=== PATIENT | female | born 1995 | race Caucasian/White ===

== ENCOUNTER 2022-03-19 13:50 | Outpatient (CLI) | payer OTHER, SELFPAY ==
--- NOTE | 2022-03-19 14:00 | CRLHL7_ITS ---
For Patients: As a result of the Cures Act, medical imaging exams and procedure reports are released immediately into your electronic medical record. You may view this report before your referring provider. If you have questions, please contact your health care provider. INDICATION: Evaluate size and dates TECHNIQUE: Ultrasound OB pelvis transvaginal. Real time amin scale imaging of the pelvis was performed. COMPARISON: None FINDINGS: Sonographic imaging demonstrates a single living intrauterine gestation. The embryo demonstrates a regular cardiac rate measuring 176 beats per minute. The embryo`s crown rump length measurement of 1.9 cm corresponds to a gestational age of 8 weeks 3 days with a sonographic due date of 10/26/2022. There is a normal appearing yolk sac. There are no gross abnormalities noted within the embryo at this early state of development. The placenta has not yet developed. The gestational sac has a normal appearance and there is no evidence of a perigestational hemorrhage. The amount of fluid within the sac appears appropriate for gestational age. The cervix is closed. The myometrium appears normal. The ovaries are of normal size. 0.0 centimeter left ovarian there are no suspicious fluid collections noted in the cul-de-sac. IMPRESSION: Viable intrauterine . Gestational age calculated at 8 weeks 3 days with a sonographic due date of 10/26/22. Measurements consistent with dates. No abnormalities seen. Dictated by Regan Sheffield MD @ 03/20/2022 8:59:52 PM (Electronically Signed)
== END 2022-03-19 13:51 | disposition home or self-care (01) ==
LOC: US 13:53
PROVIDERS: PCP Advanced Practice Midwife; Visit Provider Advanced Practice Midwife
DX: Z34.91 Encounter for supervision of normal pregnancy, unspecified, first trimester (principal); Z3A.08 8 weeks gestation of pregnancy
CPT/HCPCS: 76817

== ENCOUNTER 2022-03-19 15:05 | Outpatient (CLI) | payer OTHER, SELFPAY ==
[2022-03-19 18:06] LABS: Hepatitis B Surface Antigen* Negative (Negative)
[2022-03-19 18:55] LABS: Hepatitis C Virus Antibody* Negative (Negative)
[2022-03-19 19:35] LABS: HIV 1/2/P24 Combo Screen* Negative (Negative)
[2022-03-21 19:41] LABS: Varicella-Zoster Virus Ab, IgG 149.4 IV
[2022-03-22 02:21] LABS: Rapid Plasma Reagin (RPR) Non Reactive (Non Reactive)
== END 2022-03-19 15:06 | disposition home or self-care (01) ==
PROVIDERS: PCP Advanced Practice Midwife; Visit Provider Advanced Practice Midwife
DX: Z34.91 Encounter for supervision of normal pregnancy, unspecified, first trimester (principal); Z3A.08 8 weeks gestation of pregnancy
CPT/HCPCS: 86592; 86703; 86762; 86787; 86803; 86850; 86900; 86901; 87086; 87340

== ENCOUNTER 2022-06-06 13:52 | Outpatient (CLI) | payer OTHER, SELFPAY ==
--- NOTE | 2022-06-06 14:00 | CRLHL7_ITS ---
For Patients: As a result of the Century Cures Act, medical imaging exams and procedure reports are released immediately into your electronic medical record. You may view this report before your referring provider. If you have questions, please contact your health care provider. INDICATION: Evaluate anatomy. COMPARISON: 03/19/2022 TECHNIQUE: Real time amin scale imaging of the fetus was performed as well as color Doppler analysis of the umbilical vessels. FINDINGS: Sonographic imaging demonstrates a single living intrauterine gestation. Fetus demonstrates a regular cardiac rate of 137 beats per minute. Fetus has a breech position. The placenta lies posteriorly without evidence of placenta previa. The edge of the placenta is located 3.9 cm from the internal cervical os. Amniotic fluid volume appears normal. Single deepest vertical pocket: 3.4 cm. The cervix is closed and measures 4.4 cm in length. The composite ultrasound gestational age is calculated at 20 weeks 0 days with an estimated sonographic due date of 10/24/2022. The estimated weight is 325 grams which lies at the 44th %. The following biometric measurements were obtained: Biparietal diameter: 4.7 cm/20 weeks 1 day 55th% Head circumference: 17.2 cm/19 weeks 5 days 31st% Abdominal circumference: 15.2 cm/20 weeks 3 days 58th% Femur length: 3.1 cm/19 weeks 4 days 26th% The HC/AC ratio measures: 1.13 range (1.08-1.25) On anatomic survey, there is a normal appearance of the cerebral ventricles, cavum septi pellucidi, cisterna magna and cerebellum. The nose, lips, and facial profile appear normal. The cervical, thoracic and lumbar spine are well visualized and appear normal. Incomplete visualization of the four-chamber heart and outflow tracts. The diaphragm and stomach appear normal. The kidneys and bladder also appear normal. There is a normal three-vessel cord and cord insertion site. The four extremities appear normal. IMPRESSION: Concordance of clinical and sonographic dating. Incomplete visualization of the cardiac views. Remainder of the anatomic survey is normal. Short-term follow-up in 1-2 weeks suggested. Dictated by Regan Medrano MD @ 06/07/2022 10:07:02 AM (Electronically Signed)
== END 2022-06-06 13:53 | disposition home or self-care (01) ==
PROVIDERS: Visit Provider Advanced Practice Midwife
DX: Z34.92 Encounter for supervision of normal pregnancy, unspecified, second trimester (principal)
CPT/HCPCS: 76805

== ENCOUNTER 2022-06-11 15:59 | Outpatient (CLI) | payer OTHER, SELFPAY ==
--- NOTE | 2022-06-11 16:00 | CRLHL7_ITS ---
For Patients: As a result of the Century Cures Act, medical imaging exams and procedure reports are released immediately into your electronic medical record. You may view this report before your referring provider. If you have questions, please contact your health care provider. INDICATION: incomplete views of heart COMPARISON: 06/06/2022 TECHNIQUE: Real time amin scale imaging of the fetus was performed. FINDINGS: Sonographic imaging demonstrates a single living intrauterine gestation. Fetus demonstrates a regular cardiac rate of 159 beats per minute. Fetus has a vertex position. The placenta lies posteriorly. Amniotic fluid volume appears normal. Single deepest vertical pocket: 4.3 cm. There is a normal four-chamber heart view and the left and right ventricular outflow tracts appear normal. IMPRESSION: Normal heart views. Dictated by Regan Medrano MD @ 06/12/2022 9:30:49 AM (Electronically Signed)
== END 2022-06-11 16:00 | disposition home or self-care (01) ==
LOC: US 16:00
PROVIDERS: Visit Provider Advanced Practice Midwife
DX: O36.8320 Maternal care for abnormalities of the fetal heart rate or rhythm, second trimester, not applicable or unspecified (principal); Z3A.00 Weeks of gestation of pregnancy not specified
CPT/HCPCS: 76816

== ENCOUNTER 2022-09-14 15:36 | Outpatient (CLI) | payer OTHER, SELFPAY ==
[2022-09-14] VITALS (20 sets, daily range): BP systolic 112–135; BP diastolic 63–85; PULSE 78–99; RESP 18; TEMP 36.8; O2SAT 98–99
[2022-09-14 17:03] LABS: Hematocrit 40.4 % (33.0-51.0); Hemoglobin* 13.6 gm/dL (12.0-16.0); Mean Corpuscular HGB Conc 34 gm/dL (32-36); Mean Corpuscular Hemoglobin 30 pg (26-34); Mean Corpuscular Volume 90 fL (80-100); Platelet Count* 315 K/uL (140-440); Red Blood Count 4.49 m/uL (4.00-5.20); White Blood Count* 11.88 K/uL (4.50-11.00)
[2022-09-14 17:07] LABS: Slide Review Reflex No
[2022-09-14 17:21] LABS: Alanine Aminotransferase* 22 U/L (4-35); Aspartate Amino Transferase* 24 U/L (12-35); Blood Urea Nitrogen* 9 mg/dL (5-24); Creatinine* 0.6 mg/dL (0.5-1.5); Estimated Glomerular Filt Rate 125 ml/min
[2022-09-14 17:22] LABS: Total Protein Urine 15 mg/dL
[2022-09-14 17:23] LABS: Creatinine Urine 152.4 mg/dL
--- NOTE | 2022-09-14 20:01 | PC.OBNST ---
NST Note NST Note Start: 09/14/22 16:52 Freq: ONCE Status: Active Protocol: Document 09/14/22 19:59 MMB (Rec: 09/14/22 20:00 MMB [id number]) NST Note 1 Para (# of births) 0 EDC 10/24/22 Gestational Age In Weeks & Days 34 Weeks & 2 Days Patient Presented with Complaint(s) of Other Other Complaints Elevated BP in clinic, continued observation. Reactive Yes Appropriate for Gestational Age Yes RN Ginger Ku RN Date 09/14/22 Reactive Yes Appropriate for Gestational Age Yes PAMELA Yeh RN Date 09/14/22 OB NST charge Yes Complete NST Note via Write Note Yes The provider's electronic signature indicates the NST is reactive/appropriate for gestational age. *Note to provider: If an addendum is required, open the patient's chart and click on the note under the Nurse/Allied Health tab.
== END 2022-09-14 19:26 | disposition home or self-care (01) ==
LOC: OB OUT 15:36 → OB 15:37
PROVIDERS: Visit Provider Advanced Practice Midwife
DX: O16.3 Unspecified maternal hypertension, third trimester (principal); Z3A.34 34 weeks gestation of pregnancy
CPT/HCPCS: 36415; 59025; 82565; 82570; 84156; 84450; 84460; 84520; 85027; 99213

== ENCOUNTER 2022-09-28 15:22 | Outpatient (CLI) | payer OTHER, SELFPAY ==
[2022-09-29 17:47] LABS: Strep B DNA Probe POSITIVE (Negative); Strep B Pen/Amox Allergy No
== END 2022-09-28 15:23 | disposition home or self-care (01) ==
LOC: NFLDREF 15:22
PROVIDERS: Visit Provider Advanced Practice Midwife
DX: Z34.93 Encounter for supervision of normal pregnancy, unspecified, third trimester (principal)
CPT/HCPCS: 87081; 87653

== ENCOUNTER 2022-10-30 07:12 | Outpatient (CLI) | payer OTHER, SELFPAY ==
--- NOTE | 2022-10-30 07:15 | CRLHL7_ITS ---
For Patients: As a result of the Century Cures Act, medical imaging exams and procedure reports are released immediately into your electronic medical record. You may view this report before your referring provider. If you have questions, please contact your health care provider. INDICATION: Post-dates COMPARISON: 06/11/2022 TECHNIQUE: Real time amin scale imaging of the fetus was performed. Without non-stress testing. FINDINGS: Sonographic imaging demonstrates a single living intrauterine gestation. Fetus demonstrates a regular cardiac rate of 149 beats per minute. Fetus has a vertex position. The amniotic fluid volume appears lower limits of normal and there is a single deepest pocket measurement of 3.0 cm. TOD 10.4 cm. The fetus was active and demonstrated normal breathing movements. There was normal flexion and extension of the trunk and extremities. IMPRESSION: Normal biophysical profile score of 8 out of 8. Dictated by Regan Medrano MD @ 10/30/2022 8:40:43 AM (Electronically Signed)
== END 2022-10-30 07:13 | disposition home or self-care (01) ==
LOC: US 07:13
PROVIDERS: Visit Provider Advanced Practice Midwife
DX: O48.0 Post-term pregnancy (principal); Z3A.40 40 weeks gestation of pregnancy
CPT/HCPCS: 76819

== ENCOUNTER 2022-11-02 17:41 | Inpatient (IN) | payer OTHER, SELFPAY ==
[2022-11-02] VITALS (20 sets, daily range): BP systolic 125–156; BP diastolic 63–85; PULSE 74–110; RESP 16; TEMP 36.8–37.1; O2SAT 96–98; BMI 41.1
[2022-11-02 14:52] LABS: Creatinine Urine 17.6 mg/dL; Total Protein Urine 13 mg/dL
[2022-11-02 16:16] LABS: Hematocrit 42.9 % (33.0-51.0); Hemoglobin* 14.5 gm/dL (12.0-16.0); Mean Corpuscular HGB Conc 34 gm/dL (32-36); Mean Corpuscular Hemoglobin 30 pg (26-34); Mean Corpuscular Volume 89 fL (80-100); Platelet Count* 367 K/uL (140-440); Red Blood Count 4.85 m/uL (4.00-5.20); White Blood Count* 12.14 K/uL (4.50-11.00)
[2022-11-02 16:18] LABS: Slide Review Reflex No
[2022-11-02 16:34] LABS: Alanine Aminotransferase* 24 U/L (4-35); Aspartate Amino Transferase* 29 U/L (12-35); Blood Urea Nitrogen* 12 mg/dL (5-24); Creatinine* 0.7 mg/dL (0.5-1.5); Estimated Glomerular Filt Rate 120 ml/min
--- NOTE | 2022-11-02 17:30 | W.PM.LDBA ---
Subjective History of Present Illness Time Seen by Provider: 17:31 Date Seen: 11/02/22 Specific Issues/Plans H&P by BERTHA Scott on 10/05/2022 1. Prepregnancy BMI 38.78 2. 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 Taking Hypnobirthing classes. 3. PTSD/Anxiety Brother by homicide Was on medication in past, not since 2018; currently in therapy 4. Varicella non-immune Recommend vaccine pp 5. Elevated BP without diagnosis of HTN 09/14 144/80 Labs WNL, p/c ratio 0.00. BP normotensive in triage Follow-up BP check in 1 week 6. GBS positive, Recommend antibiotics in labor. Planning to decline, will consider based on risk Declination form signed COVID: declines FLU: declines TDAP: declines Comments: Lilli is being admitted to Labor and Delivery for an IOL for preeclampsia. She is a 27 year old G 1 P 0 at?41.2 weeks gestation. She was seen in the clinic this morning for an NST for post dates. At that time she was noted to have an elevated BP. IOL recommended at that time r/t previous elevated blood pressure and being 41+ weeks. She was hesitant at that time and preferred to start w/ further monitoring. She also wanted to do a hypnobabies track prior to having her labs drawn, as she has a fear of needles. Her BPs during this extended monitoring ranged from 120s/60s - 140s/80s. She did have 2 BPs that were 150s/80s. Liver enzymes WNL, PC ratio elevated at 0.7. She denies any headache, vision changes or epigastric pain at this time. Reviewed diagnoses of preeclampsia. She agrees to an IOL at this time. Her full history and physical was dictated by Josh Arce on 10/05/22. Please see this for details. ? Her partner is with her for support. She is planning an unmedicated waterbirth. OB - Problem Based A/P Additional Plan (1) Preeclampsia: Status: Acute (2) Group B Streptococcus carrier state affecting : Status: Acute (3) Anxiety: Status: Acute (4) PTSD (post-traumatic stress disorder): Status: Acute Plan at 41.2 weeks GBS positive IOL for preeclampsia w/o severe features. Severe needle phobia Varicella non immune -Needs vaccine PP 1. Admit to L & D for IOL. 2. IV access r/t preeclampsia 3. Continuous monitoring r/t preeclampsia 4. Reviewed options for IOL, including risks and benefits. She would prefer cervidil to allow for more sleep tonight. May also have vistaril if desired for sleep. 5. She declines GBS antibiotic prophylaxis at this time. This has been reviewed in the clinic and she has signed the declination form. She is open to reconsidering depending on the circumstances of her labor. 6. Candidate for analgesia of choice. Planning unmedicated 7. Desires waterbirth. Consent signed and Hep C neg. Remains a candidate if BPs do not become severe 8. Anticipate progress to NVD. Delivery/Labor/Induction Plan Plan: induction Induction method: Cervidil OB Exam Physical Exam Vital signs: Temp Pulse Resp BP Pulse Ox 98.8 F 91 16 139/71 98 11/02/22 14:30 11/02/22 16:58 11/02/22 14:30 11/02/22 16:58 11/02/22 14:30 Narrative: VSS, afebrile? General Appearance:? Calm, cooperative.? No acute distress.? Normal affect.? Psychiatric Exam: Alert and oriented, appropriate affect? HEENT: normocephalic, neck supple, full ROM? Respiratory:? Symmetrical chest wall movement.? Normal respiratory effort.? Clear to auscultation? Cardiac:? regular rate and rhythm? Abdomen: Gravid, non tender? Extremities:? normal and trace edema? Skin: warm, dry.??? Ctx:? rare mild terrence ruben ctx FHTs:? Baseline: 135.? Variability: moderate.?? Accels: present.??? Decels:? none.? SVE: 50/-2? Membranes: intact?
[2022-11-02] MEDS: DINOPROSTONE 10 MG VAGINAL INSERT VAGINAL (18:01)
[2022-11-02] MEDS: hydrOXYzine pamoate 25 MG CAPSULE 100 MG PO (22:04)
[2022-11-03] VITALS (17 sets, daily range): BP systolic 105–136; BP diastolic 56–82; PULSE 78–127; RESP 15–20; TEMP 36.4–37.1; O2SAT 97–98
--- NOTE | 2022-11-03 07:02 | PM.OBPNL ---
Subjective Time Seen by Provider: 07:02 Date Seen: 11/03/22 Narrative: Lilli had the cervidil placed around 1800. She started to have intense cramping, which progressed to not feeling like she was getting any break. SVE by RN was 3-4 cm. Decision made to pull cervidil at that time (2311) and continue to see how she labored on her own. 0017 SROM occurred, clear fluid. She continued to labor, and was noted to be a rim at 0406. At 0430, noted to be somewhat involuntary pushing, primarily trying to breathe baby down. She pushed mostly on hands and knees/kneeling in the tub. Around 0515, SVE done to see how pushing was progressing, as she was still trying to breathe baby down. Baby noted to be +3 station, not , and little movement noted with push. She tried various positions for pushing and increased coaching, but still was unable to actively push and move baby down. Recommendation made to exit the tub so she wasn't trying to support herself in the tub and push. She was agreeable to this. Assisted from the tub and into bed into a semifowlers position. She was coached on pushing, and descent noted in this position. She pushed to a position, at which time Josh Arce assumed care. BPs stable in labor and pushing. Objective Exam: VSS, afebrile General Appearance:? Calm, cooperative. No acute distress. ? Psychiatric Exam: Alert and oriented, appropriate affect Abdomen: Gravid Ctx: ?Q [] min apart. ?[Mild] [Moderate] [Strong] FHTs: Baseline: []. Variability: []. Accels: []. Decels: []. SVE: [] Membranes: [Intact] [SROM AROM X [] hours] ? Vital Signs: Last Vital Signs Temp 98.3 F 11/03/22 05:55 Pulse 116 H 11/03/22 05:55 Resp 20 11/03/22 05:55 BP 128/72 11/03/22 05:55 Pulse Ox 96 11/02/22 22:01 Plan Plan: Assessment:?? at 40.3 weeks gestation?? GBS positive, declining treatment IOL for preeclampsia w/o severe features ? Plan:?? NVD anticipated soon.
[2022-11-03] MEDS: OXYTOCIN 30 unit/500 ML in NS 30 UNIT/500 ML BAG 350 UNIT IVPB (07:37)
[2022-11-03] MEDS: LACTATED RINGERS 1000 ML 1,000 ML 75 ML IV (07:38)
--- NOTE | 2022-11-03 07:55 | W.PM.VAGDE_ITS ---
OB Procedure Vag Delivery Mother Details Mother Details: The patient is a 27 year-old, 1, Para 1, admitted on 11/02/22 at 41.3 Days gestation. : 1 Para: 1 Weeks Gestation: 41.3 Admission Date: 11/02/22 Additional Details Amniotic Membrane Status: SROM Amniotic Membrane Rupture Date: 11/03/22 Amniotic Membrane Rupture Time: 00:17 Amniotic Membrane Fluid Description: Clear Analgesia/Anesthesia Type: None Waterbirth: No Pitcoin: Yes ([facility] only) Intrapartal Events: Labor Induction Induction Method: Cervidil Labor Onset: 03:00 Complete: 04:40 Pushin:40 Heart: heart tones during second stage were intermittently monitored until the last hour. Reassuring throughout. Good return to baseline between contractions for the last hour with EFM, intermittent due to pushing. Delivery Details Delivery Date: 11/03/22 Delivery Time: 07:04 Route of delivery: Gender: Female Viability: Alive; Heart Rate Present Position at Delivery: OA Delivery Details: Patient was admitted for induction of labor for new diagnosis of pre-eclampsia. Her induction was started with Cervidil with the plan to sleep overnight. Just a few hours after, she began to become uncomfortable and Cervidil was removed. She then progressed normally. SROM occurred at 0017 with clear fluid. Patient was complete at 0440 and pushing at 0440 but only with urge at peak of contractions while in the tub. She started to push more effectively about 615 when she transitioned to the bed. of a viable female at 0704 in position on the bed. Vertex delivered OA. No nuchal cord or shoulder. Body delivered easily and w ithout incident. Terminal meconium noted. Infant passed to mothers lower abdomen due to short cord. Stimulated for a weak cry initially but perked up with additional stim and bulb suctioning of the mouth. Cord was clamped and cut at > 5 minutes. APGARS were 6 at one minute and 8 at five minutes respectively.Intact placenta with a 3 vessel cord delivered spontaneously at 0716. Fundus was initially boggy but was firm with fundal massage. She continued to trickle but was declining Pitocin unless necessary. Rectal Cytotec administered and her bladder was emptied. Her fundus was again boggy but massaged to firm with additional gushes of blood, QBL at this time was >500. Recommended Pitocin, she was agreeable to using her IV access for this. Bleeding started to slow by the time Pitocin was started, fundus firm; total QBL of 800. 1st degree identified and not repaired. Mother and baby stable; mother plans to breastfeed. Infant weight pending. GBS not treated, declination form in chart. 1 Minute Interval Total Score: 6 5 Minute Interval Total Score: 8 Additional Details Shoulder Dystocia: No Placenta Delivery Time: 07:04 Placental Delivery Description: Spontaneous Procedure Done: Global Blood Loss: 800 Laceration: Perineal - 1st Degree Blood Loss Measurement Type: QBL Bakri Used: No Sponge/Need Count Correct: Yes Cord Vessel Description: 3 Vessels Indication for instrumentation: nonreassuring FHR tracing Event Summary Status: Mother and infant were stable after delivery. Disposition: floor Assessment and Plan (1) Normal spontaneous vaginal delivery: Status: Acute (2) First-degree perineal laceration, delivered: Status: Acute (3) Preeclampsia: Status: Acute (4) Group B Streptococcus carrier state affecting : Status: Acute (5) Anxiety: Status: Acute (6) PTSD (post-traumatic stress disorder): Status: Acute
[2022-11-03] MEDS: miSOPROStoL 800 MCG/4 TABLET VAGINAL (13:25)
[2022-11-04 03:09] VITALS: BP 118/81; PULSE 74; RESP 16; TEMP 36.3; O2SAT 99
--- NOTE | 2022-11-04 09:24 | PM.OBPNVD1 ---
OB - PN:Subj Subjective Date Seen: 11/04/22 Patient comments OB post-: no complaints, pain well controlled, perineal pain, tolerating diet and flatus present [place] infant status: and doing well Narrative: Lilli is a 27 y.o. who was admitted to L & D for induction of labor for pre-eclampsia without severe features. ?She had an uncomplicated NVD.?The patient feels well. ?The pain is well controlled with current medications. ?She has no new complaints. ?She is breast feeding and reports things are going ok, using a nipple sheild and working on latching.? the patient has done well.? Vitals have been stable.? She has remained afebrile.? Has a good appetite, is tolerating a general diet. ?She is voiding without difficulty.? She is passing gas and has had a small bowel movement.? She is ambulating and denies any dizziness.? Has Small amount of rubra lochia. OB - PN: Obj Exam Physical Exam: Vital signs: Temp Pulse Resp BP Pulse Ox O2 Del Method 97.4 F L 74 16 118/81 99 Room Air 11/04/22 03:09 11/04/22 03:09 11/04/22 03:09 11/04/22 03:09 11/04/22 03:09 11/04/22 03:09 Narrative: GENERAL APPEARANCE:? normal affect, alert, no distress MOOD:? appropriate CHEST:? clear to auscultation HEART:? regular rate and rhythm ABDOMEN:? soft, non-tender the uterine fundus is at Umbilicus, Midline and is appropriate for the stage of recovery. PERINEUM:? mild edema of the perineum, there is a Perineal Laceration,?1st degree, that is healing well. EXTREMITIES:? normal and no edema OB - PN: A/P Delivery Assessment and Plan (1) care and examination immediately after delivery: Status: Acute (2) Preeclampsia: Status: Acute (3) Lactating mother: Status: Acute (4) Anxiety: Status: Acute (5) PTSD (post-traumatic stress disorder): Status: Acute Plan day: 1 Plan: routine care Comments: Lactating mother. Continue to work on with nursing staff. May see if desired. Pre-eclampsia w/out SF. Continue to monitor BP. Anticipate discharge tomorrow.
[2022-11-04 13:00] VITALS: BP 121/80; PULSE 68; RESP 16; TEMP 36.6; O2SAT 98
[2022-11-04 20:08] VITALS: BP 127/83; PULSE 80; RESP 16; TEMP 36.4; O2SAT 99
[2022-11-05 01:58] VITALS: BP 127/72; PULSE 84; RESP 16; TEMP 36.4; O2SAT 98
--- NOTE | 2022-11-05 08:29 | PM.OBDSVD1 ---
DS: Providers Provider Date Seen: 11/05/22 Date of admission: 11/02/22 17:41 Primary care physician: Not a Local Provider Admitting Clinician: Candace Pagan CNM Attending Physician on discharge: Yanni Arce CNM Date of Discharge: 11/05/22 DS: Diagnosis Discharge Diagnosis (1) care and examination immediately after delivery: Status: Acute (2) Lactating mother: Status: Acute (3) Preeclampsia: Status: Acute Exam Narrative: Exam Narrative: GENERAL APPEARANCE:? normal affect, alert, no distress MOOD:? appropriate CHEST:? clear to auscultation HEART:? regular rate and rhythm ABDOMEN:? soft, non-tender the uterine fundus is at Umbilicus, Midline and is appropriate for the stage of recovery. PERINEUM:? mild edema of the perineum, there is a Perineal Laceration,? 1st degree, that is healing well. EXTREMITIES:? normal and no edema Const: Vital Signs, click to edit/add: Vital Signs - 24 hr 11/04/22 13:00 11/04/22 20:08 11/05/22 01:58 Temperature 97.9 F 97.6 F 97.6 F Pulse Rate [Pulse Oximeter] 68 80 84 Respiratory Rate 16 16 16 Blood Pressure [Ri ght Arm] 121/80 127/83 127/72 Pulse Oximetry 98 99 98 Oxygen Delivery Me thod Room Air Room Air Room Air OB - DS: Summary Hospital Course Hospital Course: Lilli is a 27 year old G 1 P 1 at 41 3/7 weeks gestation that was admitted to the Center on 11/02/22 for induction of labor for newly diagnosed Pre-e without severe features. She had an uncomplicated vaginal delivery. She delivered a viable female infant. The patient feels well. ?The pain is well controlled with current medications. ?She has no new complaints. ?She is breast feeding and reports things are going well today, she has been a little sleepy but feeding now without a nipple shield most of the time. the patient has done well.? Vitals have been stable.? She has remained afebrile.? Has a good appetite, is tolerating a general diet. ?She is voiding without difficulty.? She is passing gas and has not had a bowel movement.? She is ambulating and denies any dizziness.? Has small amount of rubra lochia. She is planning NFP/condoms for prevention. Problems: None plan: Discharge home with baby. Follow up in 2 weeks and 6 weeks. , may see if needed Pre-eclampsia without SF, normotensive BP since delivery -Follow up in 3-5 days -Call for signs/symptoms of preeclampsia Peripartum Data delivery method: Vaginal Laceration description: Perineal - 1st Degree complications: none Infant Gender: Female Infant Discharge Plan: Home Status at Discharge Functional status at discharge: independent ambulation Overall status at discharge: patient is progressing back to baseline Time Spent with Patient Time attestation: Total time spent providing and/or coordinating discharge services: Discharge Plan Discharge Disposition: Home, Self-Care Date of Admission: 11/02/22 17:41 Primary Care Provider: Provider,Not a Local Condition: Stable Anticipated Discharge Date/Time: 11/05/22 12:00 Discharge Medications: New docusate sodium 100 mg Capsule 100 mg PO DAILY Qty: 90 0RF ibuprofen 600 mg Tablet 600 mg PO Q6H PRNQty: 60 0RF acetaminophen 500 mg Tablet 1,000 mg PO Q6H PRNQty: 0 0RF Continued prenat.vits,gurpreet,[id number]-[id number] Tablet 1 tab PO QDAY aspirin [Adult Low Dose Aspirin] 81 mg tablet,delayed release (DR/EC) 81 mg PO QDAY Discharge Orders: Discharge Order (Routine); Ordered 11/05/22 Ordered By: Yanni Arce Patient Education: OB Over the Counter Medication Information, OB Vaginal/Breast Feeding Additional Instructions: Discharge instructions were reviewed with the patient including signs and symptoms of infection and home going medications Nothing vaginally for 6 weeks: no tampons or intercourse Off Work or School for 6 weeks [facility] for a BP check?11/07/2022 Call with BP greater than or equal to 160/110 2-week visit: discuss feeding concerns, review control options and screen for anxiety/depression. 6-week visit for an annual exam. consultation services are available to all mothers and babies for the first year after delivery.? To make an appointment, please call [phone]. Activity Level: Activity as Tolerated Discharge Diet: Regular Follow Up Appointments: [facility] [Provider Group] Forms: [employer] Info Instructions
[2022-11-05 09:26] VITALS: BP 117/78; PULSE 67; RESP 16; O2SAT 98
== END 2022-11-05 11:06 | disposition home or self-care (01) | DRG 807 ==
LOC: OB OUT 11-06 11:47
PROVIDERS: Admitting Provider Advanced Practice Midwife; Visit Provider Advanced Practice Midwife
DX: O14.04 Mild to moderate pre-eclampsia, complicating childbirth (principal); Z37.0 Single live birth; O14.93 Unspecified pre-eclampsia, third trimester; Z3A.41 41 weeks gestation of pregnancy; O99.820 Streptococcus B carrier state complicating pregnancy; O70.0 First degree perineal laceration during delivery; O48.0 Post-term pregnancy; F43.10 Post-traumatic stress disorder, unspecified
CPT/HCPCS: 36415; 59200; 82565; 82570; 84156; 84450; 84460; 84520; 85027; 99213; A9270; J7120

== ENCOUNTER 2022-11-06 08:58 | Outpatient (CLI) | payer OTHER, SELFPAY | END 2022-11-06 08:59 | disposition home or self-care (01) | PROVIDERS: Visit Provider Advanced Practice Midwife | DX: O14.10 Severe pre-eclampsia, unspecified trimester (principal) | CPT/HCPCS: 82565; 84450; 84460; 84520; 84550 ==

== ENCOUNTER 2022-11-06 14:09 | Inpatient (IN) | payer OTHER, SELFPAY ==
[2022-11-06 14:38] VITALS: BP 137/92; PULSE 98; RESP 18; TEMP 37.1; O2SAT 98
[2022-11-06 14:55] VITALS: BP 135/79
[2022-11-06] MEDS: MAGNESIUM IV 4 GM/100 ML PIGGYBACK IVPB (15:11)
[2022-11-06 15:30] LABS: Chloride* 108 mmol/L (96-114); Potassium* 3.8 mmol/L (3.6-5.1); Sodium* 140 mmol/L (135-149)
[2022-11-06 15:33] LABS: Anion Gap 9 mEq/L (7-15); Carbon Dioxide* 23 mmol/L (20-32); Creatinine* 0.6 mg/dL (0.5-1.5); Estimated Glomerular Filt Rate 125 ml/min
[2022-11-06 15:34] LABS: Blood Urea Nitrogen* 13 mg/dL (5-24); Glucose* 86 mg/dL (60-115)
[2022-11-06] MEDS: LACTATED RINGERS 1000 ML 1,000 ML 75 ML IV (15:45)
[2022-11-06 15:46] VITALS: BMI 38.7
--- NOTE | 2022-11-06 16:00 | CRLHL7_ITS ---
For Patients: As a result of the Century Cures Act, medical imaging exams and procedure reports are released immediately into your electronic medical record. You may view this report before your referring provider. If you have questions, please contact your health care provider. INDICATION: Leg pain and swelling. TECHNIQUE: Ultrasound venous duplex lower left extremity. Compression venous exam was performed using amin-scale, color Doppler, and spectral Doppler analysis. COMPARISON: None. FINDINGS: Deep veins: Sonographic imaging demonstrates the left common femoral, deep femoral, superficial femoral, popliteal, posterior tibial, peroneal and the contralateral right common femoral veins to be fully compressible with normal color Doppler blood flow. Superficial veins: Greater saphenous vein is fully compressible. No popliteal cyst. IMPRESSION: Normal left lower extremity venous ultrasound, no sign of deep venous thrombosis. Dictated by Rory Dukes MD @ 11/06/2022 5:14:00 PM (Electronically Signed)
[2022-11-06 17:50] VITALS: BP 112/69; PULSE 88; RESP 18; TEMP 36.7; O2SAT 98
[2022-11-06] MEDS: ACETAMINOPHEN 500 MG TABLET 1000 MG PO (18:24)
[2022-11-06 20:00] VITALS: BP 125/77; PULSE 92; RESP 18; TEMP 36.7; O2SAT 97
[2022-11-06] MEDS: LABETALOL HCL 100 MG TABLET 200 MG PO (20:59)
[2022-11-06 21:00] VITALS: BP 115/74
--- NOTE | 2022-11-06 21:19 | W.PM.LDBA ---
Subjective History of Present Illness Time Seen by Provider: 21:19 Date Seen: 11/06/22 Narrative: Patient is being admitted to Labor and Delivery for magnesium sulfate for severe preeclampsia. She is a 27 year old s/p on 11/03/2022. Her full history and physical was dictated by Anni Pagan CNM who she saw today in clinic. I was asked to consult on her. She was dx with preeclampsia on 11/02/2022. She was admitted for induction and had an uncomplicated delivery. Her blood pressure prior to discharge was 100-120s/60-80s. Her BP at home is recorded as 140-150s/90s. No severe ranging BP. She was seen for short followup by BERTHA today. I recommended PreE labs and starting her on labetalol 200 mg BID. PreE labs was significant for AST/ALT: 80/55 ( on Nov 02). She meet criteria for preeclampsia with severe features. Recommend inpatient admission for IV magnesium sulfate. Specific Issues/Plans H&P by BERTHA Scott on 10/05/2022 1. Prepregnancy BMI 38.78 2. 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 Taking Hypnobirthing classes. 3. PTSD/Anxiety Brother by homicide Was on medication in past, not since 2018; currently in therapy 4. Varicella non-immune Recommend vaccine pp 5. Elevated BP without diagnosis of HTN 09/14 144/80 Labs WNL, p/c ratio 0.00. BP normotensive in triage Follow-up BP check in 1 week 6. GBS positive, Recommend antibiotics in labor. Planning to decline, will consider based on risk Declination form signed COVID: declines FLU: declines TDAP: declines OB - Problem Based A/P Additional Plan (1) Severe preeclampsia: Status: Acute Plan Pre-Eclampsia with severe features ? Based on AST twice upper limit of normal ? BPs 142/80 ? Symptoms: 1/10 headache, no visual change. Resolve with tylenol. ? Magnesium: Magnesium for seizure ppx. Continue for 24 hours with BP monitoring ? IV antihypertensives: Labetalol 200 mg BID ? Pre-eclampsia labs on 11/06/2022: Hgb 10.9 Plt 355 Cr 0.6 ALT 55 AST 80 ? UOP: 0.81 cc/kg/hr. Adequate OB Exam Physical Exam Vital signs: Temp Pulse Resp BP Pulse Ox O2 Del Method 98.0 F 92 18 115/74 97 Room Air 11/06/22 20:00 11/06/22 20:00 11/06/22 20:00 11/06/22 21:00 11/06/22 20:00 11/06/22 20:00
[2022-11-06 23:58] VITALS: BP 99/61; PULSE 75; RESP 16; TEMP 36.7; O2SAT 97
[2022-11-07] MEDS: ACETAMINOPHEN 500 MG TABLET 1000 MG PO ×3 (02:56→14:50)
[2022-11-07 03:02] VITALS: BP 119/74; PULSE 97; RESP 16; TEMP 36.6; O2SAT 97
[2022-11-07] MEDS: LACTATED RINGERS 1000 ML 1,000 ML 75 ML IV (05:11)
[2022-11-07 06:12] LABS: Hematocrit 31.2 % (33.0-51.0); Hemoglobin* 10.1 gm/dL (12.0-16.0); Mean Corpuscular HGB Conc 32 gm/dL (32-36); Mean Corpuscular Hemoglobin 30 pg (26-34); Mean Corpuscular Volume 92 fL (80-100); Platelet Count* 349 K/uL (140-440); Red Blood Count 3.38 m/uL (4.00-5.20); White Blood Count* 10.35 K/uL (4.50-11.00)
[2022-11-07 06:16] LABS: Slide Review Reflex No
[2022-11-07 06:27] LABS: Alanine Aminotransferase* 63 U/L (4-35); Aspartate Amino Transferase* 77 U/L (12-35); Blood Urea Nitrogen* 9 mg/dL (5-24); Creatinine* 0.6 mg/dL (0.5-1.5); Est. Creatinine Clearance* 119.47; Estimated Glomerular Filt Rate 125 ml/min
[2022-11-07 06:34] LABS: INR 0.97 (0.91-1.10); Prothrombin Time 13.5 Seconds
[2022-11-07 06:39] LABS: Partial Thromboplastin Time* 26 Seconds (23-33)
[2022-11-07 06:40] LABS: Fibrinogen* 516 mg/dL (200-450)
[2022-11-07] MEDS: LABETALOL HCL 100 MG TABLET 200 MG PO ×2 (08:43→21:10)
[2022-11-07 08:44] VITALS: BP 130/83; PULSE 82; RESP 16; TEMP 36.6; O2SAT 96
--- NOTE | 2022-11-07 08:44 | PM.OBPNVD1 ---
OB - PN:Subj Subjective Date Seen: 11/07/22 Narrative: The patient is a 27-year-old 1 para 1001 who was readmitted yesterday with a diagnosis of severe preeclampsia, based on elevated liver function tests and blood pressures. She was started on a magnesium sulfate infusion yesterday afternoon. She generally feels well. Urine output has been excellent she has been diuresing. OB - PN: Obj Exam Physical Exam: Vital signs: Temp Pulse Resp BP Pulse Ox O2 Del Method 97.8 F 97 16 119/74 97 Room Air 11/07/22 03:02 11/07/22 03:02 11/07/22 03:02 11/07/22 03:02 11/07/22 03:02 11/07/22 03:02 Constitutional: Constitutional: no acute distress Routine Respiratory Exam: Respiratory: Present CTA bilaterally Routine Cardiovascular Exam: Cardiovascular: Present RRR Routine Abdominal Exam: Abdominal: Present soft; Absent tenderness Routine Extremities Exam: Extremities: Absent calf tenderness or pedal edema OB - PN: Obj Data Labs Labs: Laboratory Results - last 24 hr 11/06/22 11/07/22 14:52 06:00 WBC 10.35 RBC 3.38 L Hgb 10.1 L Hct 31.2 L MCV 92 MCH 30 MCHC 32 Plt Count 349 INR 0.97 APTT 26 Fibrinogen 516 H Sodium 140 Potassium 3.8 Chloride 108 Carbon Dioxide 23 Anion Gap 9 BUN 13 9 Creatinine 0.6 0.6 Estimated Creat Clear 119.47 Estimated GFR 125 125 Glucose 86 Calcium 9.0 AST 77 H ALT 63 H OB - PN: A/P Delivery Assessment and Plan (1) Severe preeclampsia: Status: Acute Plan 1. Continue magnesium sulfate prophylaxis for a total of 24 hours. 2. The patient is diuresing well. Will discontinue fluid restrictions. 3. Continue labetalol 200 mg p.o. b.i.d.. 4. Continue to monitor blood pressures overnight tonight. Plan day: 4
[2022-11-07 11:18] VITALS: BP 107/69; PULSE 78; RESP 16; TEMP 36.8; O2SAT 98
--- NOTE | 2022-11-07 11:20 | PC.NURSE ---
Notified MD that patient is feeling nauseous, weak, and dizzy. Patient denies headache. Blood pressure has improved. Patient emotional and tearful. MD placed order for labs and Zofran. Will continue to monitor.
[2022-11-07] MEDS: ONDANSETRON ODT 4 MG TAB PO (11:33)
[2022-11-07 11:47] LABS: Magnesium* 6.3 mg/dL (1.5-2.6)
[2022-11-07 12:00] LABS: Hematocrit 31.6 % (33.0-51.0); Hemoglobin* 10.2 gm/dL (12.0-16.0); Mean Corpuscular HGB Conc 32 gm/dL (32-36); Mean Corpuscular Hemoglobin 30 pg (26-34); Mean Corpuscular Volume 93 fL (80-100); Platelet Count* 367 K/uL (140-440); Red Blood Count 3.41 m/uL (4.00-5.20); White Blood Count* 10.81 K/uL (4.50-11.00)
[2022-11-07 12:06] LABS: Slide Review Reflex No
[2022-11-07 12:25] LABS: Alanine Aminotransferase* 68 U/L (4-35); Aspartate Amino Transferase* 74 U/L (12-35); Blood Urea Nitrogen* 10 mg/dL (5-24); Creatinine* 0.7 mg/dL (0.5-1.5); Estimated Glomerular Filt Rate 120 ml/min
[2022-11-07 12:28] LABS: Magnesium* 6.6 mg/dL (1.5-2.6)
[2022-11-07 16:30] VITALS: BP 113/74; PULSE 84; RESP 16; TEMP 36.9; O2SAT 98
[2022-11-07 19:27] VITALS: BP 124/78; PULSE 76; RESP 16; TEMP 36.7; O2SAT 97
[2022-11-08] VITALS (9 sets, daily range): BP systolic 114–150; BP diastolic 66–91; PULSE 60–85; RESP 16; TEMP 36.2–37; O2SAT 97–99
[2022-11-08] MEDS: DOCUSATE SODIUM 100 MG CAPSULE PO (03:32)
[2022-11-08 06:40] LABS: Alanine Aminotransferase* 52 U/L (4-35); Aspartate Amino Transferase* 71 U/L (12-35)
[2022-11-08] MEDS: LABETALOL HCL 100 MG TABLET 200 MG PO ×3 (09:35→20:35)
--- NOTE | 2022-11-08 10:43 | PM.OBDSVD1 ---
DS: Providers Provider Date Seen: 11/09/22 Date of admission: 11/06/22 14:09 Primary care physician: Not a Local Provider Admitting Clinician: Laine Martell MD Attending Physician on discharge: Freida Sultana MD Date of Discharge: 11/09/22 DS: Diagnosis Discharge Diagnosis (1) Severe preeclampsia: Status: Acute Exam Narrative: Exam Narrative: VITAL SIGNS: As noted above. GENERAL APPEARANCE: Alert, cooperative female in no acute distress. MOOD & AFFECT: Normal. HEART: Regular rate and rhythm without murmurs. LUNGS: Lungs are clear to auscultation bilaterally. No crackles, wheezes, or rhonchi. ABDOMEN: Soft, non-distended and nontender. : Normal lochia. EXTREMITIES: Nonedematous. Well perfused. Nontender. NEURO: Intact. Const: Vital Signs, click to edit/add: Vital Signs - 24 hr 11/07/22 11:18 11/07/22 16:30 11/07/22 19:27 Temperature 98.2 F 98.4 F 98.1 F Pulse Rate [Pulse Oximeter] 78 84 76 Respiratory Rate 16 16 16 Blood Pressure [Ri ght Arm] 107/69 113/74 124/78 Pulse Oximetry 98 98 97 Oxygen Delivery Me thod Room Air Room Air Room Air 11/08/22 01:00 11/08/22 05:30 11/08/22 07:37 Temperature 98.4 F 98.3 F 98.3 F Pulse Rate [Pulse Oximeter] 73 85 60 Respiratory Rate 16 16 16 Blood Pressure [Ri ght Arm] 114/66 146/89 H 114/76 Pulse Oximetry 98 99 98 Oxygen Delivery Me thod Room Air Room Air Room Air OB - DS: Summary Hospital Course Hospital Course: The patient is a 27 year old G 1 P 1 that was admitted to the Center on 11/06/22 for management of preeclampsia with severe features. Patient is status post 24 hours of magnesium sulfate infusion for seizure prophylaxis. She had been started on labetalol 200 mg orally twice a day, this had to be increased to 400mg three times a day. Lab work shows an improving trend of transaminitis, almost back to normal. Patient today states that she is feeling much better, denies any headaches, visual changes, pain in her upper abdomen. Time Spent with Patient Time attestation: Total time spent providing and/or coordinating discharge services: Discharge Plan Discharge Disposition: Home, Self-Care Date of Admission: 11/06/22 14:09 Attending Provider on Discharge: Manju Sultana Primary Care Provider: Provider,Not a Local Condition: Stable Anticipated Discharge Date/Time: 11/09/22 15:26 Discharge Medications: New labetalol 200 mg tablet 400 mg PO TID 20 Days Qty: 120 2RF Continued prenat.vits,gurpreet,gzs-lfjv-bnabi Tablet 1 tab PO QDAY acetaminophen 500 mg Tablet 1,000 mg PO Q6H PRNQty: 0 0RF docusate sodium 100 mg Capsule 100 mg PO DAILY Qty: 90 0RF ibuprofen 600 mg Tablet 600 mg PO Q6H PRNQty: 60 0RF Discontinued labetalol 200 mg tablet 200 mg PO BID Qty: 60 1RF aspirin [Adult Low Dose Aspirin] 81 mg tablet,delayed release (DR/EC) 81 mg PO QDAY Discharge Orders: Discharge Order (Routine); Ordered 11/09/22 Ordered By: Manju Sultana Patient Education: Preeclampsia and Eclampsia After Delivery (GEN) Additional Instructions: Continue to monitor blood pressures at least twice a day, notify clinic if there are blood pressures persistently more than 150 systolic over 100s diastolic. Notify clinic if there is headaches that do not improve with Tylenol, visual changes or pain in the upper abdomen. Follow-up in clinic already scheduled for blood pressure recheck on 11/13/2022. Activity Level: Activity as Tolerated Activity Detail: Nothing vaginally for 6 weeks Discharge Diet: Regular Follow Up Appointments: Provider,Not a Local [Primary Care Provider] - Forms: [employer] Info Instructions
[2022-11-08] MEDS: ACETAMINOPHEN 500 MG TABLET 1000 MG PO (15:20)
--- NOTE | 2022-11-08 18:09 | PM.OBPNVD1 ---
OB - PN:Subj Subjective Time Seen by Provider: 08:30 Date Seen: 11/08/22 Narrative: The patient is a 27 year old G 1 P 1 that was admitted to the Center on 11/06/22 for management of preeclampsia with severe features. Patient is status post 24 hours of magnesium sulfate infusion for seizure prophylaxis. She had been started on labetalol 200 mg orally twice a day And So Far This Has blood pressures under control. Lab work shows a improving trend of transaminitis. Patient today states that she is feeling much better, denies any headaches, visual changes, pain in her upper abdomen. Update at 6pm: Last couple of blood pressures elevated, not on severity range. Recommended to increase labetalol dose to TID. Continue observation overnight, repeat labs in the morning. OB - PN: Obj Exam Physical Exam: Vital signs: Temp Pulse Resp BP Pulse Ox O2 Del Method 98.6 F 75 16 139/85 98 Room Air 11/08/22 15:14 11/08/22 15:14 11/08/22 15:14 11/08/22 17:53 11/08/22 15:14 11/08/22 15:14 Narrative: VITAL SIGNS: As noted above. GENERAL APPEARANCE: Alert, cooperative female in no acute distress. MOOD & AFFECT: Normal. HEART: Regular rate and rhythm without murmurs. LUNGS: Lungs are clear to auscultation bilaterally. No crackles, wheezes, or rhonchi. ABDOMEN: Soft, non-distended and nontender. : Normal lochia. EXTREMITIES: Nonedematous. Well perfused. Nontender. NEURO: Intact. OB - PN: Obj Data Labs Labs: Laboratory Results - last 24 hr 11/08/22 06:12 AST 71 H ALT 52 H OB - PN: A/P Delivery Assessment and Plan (1) Severe preeclampsia: Status: Acute Plan Comments: Increase labetalol 200mg TID. Repeat labs in the morning If stable BPs overnight, plan to d/h tomorrow morning.
[2022-11-09 00:10] VITALS: BP 120/80; PULSE 62; RESP 16; TEMP 36.2; O2SAT 98
[2022-11-09 06:22] LABS: Basophils Absolute Auto 0.02 K/uL (0.00-0.30); Basophils Percent Auto 0.2 % (0.0-3.0); Eosinophils Absolute Auto 0.13 K/uL (0.00-0.50); Eosinophils Percent Auto 1.4 % (0.0-7.0); Hematocrit 32.3 % (33.0-51.0); Hemoglobin* 10.4 gm/dL (12.0-16.0); Immature Granulocytes Abs Auto 0.07 K/uL (0.00-0.30); Immature Granulocytes Pct Auto 0.8 %; Lymphocytes Absolute Auto 2.12 K/uL (0.90-2.90); Lymphocytes Percent Auto 23.5 % (20-44); Mean Corpuscular HGB Conc 32 gm/dL (32-36); Mean Corpuscular Hemoglobin 30 pg (26-34); Mean Corpuscular Volume 93 fL (80-100); Monocytes Percent Auto 5.6 % (0.0-11.0); Neutrophils Absolute Auto 6.18 K/uL (1.7-7.0); Neutrophils Percent Auto 68.5 % (42.0-72.0); Platelet Count* 357 K/uL (140-440); Red Blood Count 3.48 m/uL (4.00-5.20); White Blood Count* 9.03 K/uL (4.50-11.00)
[2022-11-09 06:26] LABS: Slide Review Reflex No
[2022-11-09 06:28] VITALS: BP 148/86; PULSE 68; RESP 12; TEMP 36.3; O2SAT 98
[2022-11-09 06:49] LABS: Alanine Aminotransferase* 42 U/L (4-35); Aspartate Amino Transferase* 30 U/L (12-35); Creatinine* 0.8 mg/dL (0.5-1.5); Estimated Glomerular Filt Rate 102 ml/min
[2022-11-09] MEDS: LABETALOL HCL 100 MG TABLET 200 MG PO ×2 (09:00→13:00)
[2022-11-09] MEDS: DOCUSATE SODIUM 100 MG CAPSULE PO (09:01)
[2022-11-09 09:02] VITALS: BP 153/86; PULSE 71; RESP 16; TEMP 37; O2SAT 98
[2022-11-09 12:38] VITALS: BP 145/87; PULSE 77; RESP 16; O2SAT 98
[2022-11-09 14:11] VITALS: BP 125/82
== END 2022-11-09 16:00 | disposition home or self-care (01) | DRG 776 ==
PROVIDERS: Obstetrics & Gynecology; Admitting Provider Obstetrics & Gynecology; Visit Provider Obstetrics & Gynecology
DX: O14.15 Severe pre-eclampsia, complicating the puerperium (principal); F41.9 Anxiety disorder, unspecified
CPT/HCPCS: 36415; 80048; 82565; 83735; 84450; 84460; 84520; 85025; 85027; 85384; 85610; 85730; 93971; A9270; J3475; J7120

== ENCOUNTER 2022-12-07 13:43 | Outpatient (CLI) | payer OTHER, SELFPAY ==
--- NOTE | 2022-12-07 17:00 | W.PM.LAC.MC ---
Consult Note - Mom Date of Visit Date of visit: 12/07/22 oncology consultant: Betty Veloz Visit Code: Visit Patient's Information Phone number: [phone] : 1 Para: 1 Allergies No Known Drug Allergies Allergy (Verified 12/17/22 10:03) Mother's Medical History: Medical History (Updated 12/18/22 @ 09:27 by Yanni Arce CNM) Severe preeclampsia ?O14.10 - Severe pre-eclampsia, unspecified trimester (ICD-10) Delivery Information Delivery type: Vaginal Weeks Gestation: 41.0 Gestational Age: AGA Weight: 3.77 kg Discharge Weight: 3.626 kg Baby's Information Baby's Age at Visit: one month Baby's Provider or Clinic: Dr. Stock Jaundice: No Reason for Consult Reason for Consult: painful latch Past Experience Past Experience: No Current Frequency of Day Feedings: about every 2 - 3 hour Frequency of Night Feedings: about every 4 - 5 hours Both Breasts: Yes Suck: strong Latch: wide Length of Time: 20 - 30 minutes Pumping Pumping: No Supplementing EMB Supplement: No Formula Supplement: No Baby Elimination Number of Wet Diapers a Day: almost every feeding Number of BM a Day: 1 - 2/day Breast/Nipple Condition Breast Information: WNL Maternal Nipple Condition - Left: Common Nipple Maternal Nipple Condition - Right: Common Nipple Sore Nipples: Yes Onsite Pre-Feed weight: 4.568 kg Post-Feed weight: 4.696 kg Milk Transferred (mL): 128 Assessments/Interventions Assessments/Interventions: Met with mom and this now one month old ex- late term AGA baby. Mom is exclusively and reports it's gotten increasingly more difficult over the past 2 - 3 weeks. She reports baby is nursing every 2 - 4 hours, she offers both sides at each feeding, and nursing sessions last 20 - 30 minutes. States in the past two weeks she's noticed more pain while nursing if baby's upper lip isn't flanged out, that her flow is sometimes hard for baby to handle, her nipples have started to carina after feedings, and they burn when getting out of the shower. She also has questions about pumping and introducing EBM. Breasts WNL- symmetrical with rounded lower quadrants, intramammary distance is < 1.5 inches. Nipples are everted and don't flatten or retract on compression, there appears to be a 1 - 2 mm fissure along the center of the right nipple. Mom does report the pins and needles feeling she would get in her breast while nursing has almost resolved since going down on her BP medication. She also reports while there were a few times she experienced nipple pain stepping out of the shower, the toes on her left foot would turn purple, and her right pinky finger would go numb. Baby has gained 29 grams/day since her last visit with PCP on 11/28/22. Mom denies any caput/cephalohematoma at delivery but states baby's head was leaning to the left side at delivery and that she favored turning to that side for awhile. Baby has been to the chiropractor a few times to help with the tightness in her neck and mom feels it's improving. Plate is WNL. Upper lip is easy to flange, gums don't carina, mom does report hx of blisters to her upper lip but none visible today. Baby has a strong suck on a finger and the tongue consistently extends past the gum line, some canoeing with lateralization. The lower frenulum looks like it could be posterior. Mom latched baby to the right side in the cross cradle hold and baby appeared to have a wide latch. The upper lip was neutral, but mom was uncomfortable until she was able to flange it out a little. Baby nursed for 10 - 15 minutes, coming off a few times when mom had a let-down but went back on after she was burped. Mom offered the left side and baby had more trouble getting a wide latch and staying latched until mom continued to support her breast while baby nursed. Mom reported that usually baby had no trouble maintaining the latch on the first side, but on the second side (whatever side that was) she tended to slip off and on. With mom's support baby nursed about 10 more minutes, transferring 128 ml (4.3 oz). Mom's nipples didn't carina immediately after baby unlatched, nor was she bothered by the change in temperature, but several minutes later they did turn white in color. Plan: 1. Continue nursing baby ALD, offering both sides at each feeding, providing breast support as needed. It's possible baby has both an upper and lower tie as the latch feels better when mom flanges the upper lip and baby has a hard time maintaining the latch on the second side. Reviewed with mom there were really no other signs and she could try some gentle stretches, massage, and continue with the chiropractor to see if this helps improve the latch. Suggested that if she didn't see improvement in a few weeks could consider an evaluation from a pediatric dentist. Handouts given. Also discussed ideas to help mom slow the flow of milk while baby nursed. 2. Reviewed vasospasm s/s and that she may be more at risk b/c of the symptoms she had in , but it could also be r/t a tongue tie. Reviewed keeping nipples warm, pectoral massage, stretching, B-6, and magnesium. Handout given. 3. Encouraged her to start pumping once/day or every few days and dad could teach baby how to take a bottle. She was measured and flange size suggested, handout given. She is familiar with paced feeding. 4. Encouraged mom to call if she has any questions or concerns. Will f/u with PCP for a 2 month WCC. Meds Home Medications and Allergies Home Medications Medication Instructions Recorded Confirmed Type prenat.vits,gurpreet,yty-rrhd-rzods 1 tab PO QDAY 03/19/22 12/17/22 History magnesium glycinate 100 mg tablet 200 mg PO QDAY 12/17/22 12/17/22 History vitamin B complex 1 tab PO QDAY 12/17/22 12/17/22 History Allergies Allergy/AdvReac Type Severity Reaction Status Date / Time No Known Drug Allergies Allergy Verified 12/17/22 10:03
== END 2022-12-07 13:44 | disposition home or self-care (01) ==
PROVIDERS: Visit Provider Advanced Practice Midwife
DX: Z39.1 Encounter for care and examination of lactating mother (principal)
CPT/HCPCS: 99211

== ENCOUNTER 2023-02-13 07:30 | Outpatient (RCR) | payer OTHER, SELFPAY | END 2023-06-13 23:59 | disposition home or self-care (01) | PROVIDERS: Visit Provider Advanced Practice Midwife | DX: N81.89 Other female genital prolapse (principal); M25.39 Other instability, other specified joint; M62.81 Muscle weakness (generalized); Z51.89 Encounter for other specified aftercare | CPT/HCPCS: 97110; 97140; 97162 ==

== ENCOUNTER 2023-03-06 07:55 | Outpatient (CLI) | payer OTHER, SELFPAY ==
--- NOTE | 2023-03-06 08:15 | CRLHL7_ITS ---
For Patients: As a result of the Cures Act, medical imaging exams and procedure reports are released immediately into your electronic medical record. You may view this report before your referring provider. If you have questions, please contact your health care provider. LEFT BREAST ULTRASOUND CLINICAL HISTORY: LEFT breast nonfocal pain, less than 30 years old. Breast-feeding. COMPARISON: None. TECHNIQUE: Real-time ultrasound imaging of LEFT breast with imaging documentation. FINDINGS: Sonogram evaluation of the LEFT breast extending from 1-5 o`clock 7 cm from the nipple performed. Normal breast tissue. No fibrocystic change. No abscess. No mass. IMPRESSION: Negative sonogram LEFT breast 1-5 o`clock. RECOMMENDATIONS: Clinical follow-up. Age-appropriate screening mammography. BI-RADS Category 1: Negative A lay language report of this examination will be provided to the patient. Dictated by Regan Medrano MD @ 03/06/2023 9:25:02 AM jj/Dictated by: Regan Medrano MD @ 03/06/2023 9:25:00 AM (Electronically Signed)
== END 2023-03-06 07:56 | disposition home or self-care (01) ==
PROVIDERS: Visit Provider Advanced Practice Midwife
DX: N64.4 Mastodynia (principal); Z39.1 Encounter for care and examination of lactating mother
CPT/HCPCS: 76642

== ENCOUNTER 2023-07-12 03:53 | Day surgery (SDC) | payer OTHER, SELFPAY ==
[2023-07-12] VITALS (18 sets, daily range): BP systolic 114–163; BP diastolic 62–94; PULSE 50–91; RESP 12–16; TEMP 36.2–36.9; O2SAT 94–100; BMI 38.1
--- NOTE | 2023-07-12 04:21 | CT_ITS ---
Patient: NATACHA ZAPATA Facility:?[facility] Patient ID:?[id number] Site Patient ID:?[id number]. Site :?[id number] Study:?CT-Abdomen/Pelvis W/ISOVUE 370 106CC-07/12/2023 5:32:31 AM Ordering Physician:VICKIE Final Report: INDICATION: Right lower quadrant pain COMPARISON: None. TECHNIQUE: CT of the abdomen and pelvis with intravenous contrast. Multiplanar reformats are included. Contrast: 106 mL Isovue 370 FINDINGS: Lung bases: Normal. Liver: Normal. No mass. Gallbladder and bile ducts: Normal gallbladder. No bile duct dilation. Pancreas: Normal. Spleen: Normal. Adrenal glands: Normal. Kidneys: Normal parenchyma. No cyst or solid mass. No calculi. No urinary tract dilation. Urinary bladder: Normal. Vessels: Normal. Pelvis: No cyst or mass. Bowel: At the cecal tip in the right lower quadrant there is a 3.3 x 3.8 x 4.7 centimeter ill-defined inflammatory mass/phlegmon with a central 0.7 centimeter coarse calcification. Findings are consistent with acute ruptured appendicitis without an abscess. No other dilated or inflamed bowel. There are some reactive lymph nodes in the right lower quadrant mesentery. No free air. Mild stool burden. Lymph nodes: Reactive right lower quadrant mesenteric lymph nodes. Peritoneum: No ascites. Bones: No fractures. No focal worrisome bone lesions. Abdominal wall: Mild diastasis at the umbilicus. IMPRESSION: Ruptured appendicitis with a central appendicolith and phlegmon, but no percutaneously drainable abscess. Please note that all CT scans at this facility use dose modulation, iterative reconstruction, and/or weight-based dosing when appropriate to reduce radiation dose to as low as reasonably achievable. Dictated by Yanni Estrada MD @ 07/12/2023 5:44:42 AM Signed by:Michael Estrada MD @07/12/2023 5:44:42 AM (Electronic Signature)
--- NOTE | 2023-07-12 04:22 | ED.GENADULT ---
HPI - General Adult General Chief complaint: Abdominal Pain Stated complaint: Pain on R side Time Seen by Provider: 07/12/23 04:10 Source: patient Mode of arrival: ambulatory Limitations: no limitations History of Present Illness HPI narrative: 28-year-old female with no prior history of abdominal surgeries presents to the emergency department for worsening right lower quadrant area abdominal pain. Located deep in the right lower quadrant/nearly inguinal area, radiating up into the periumbilical region. No prior history of similar symptoms. Bowels are moving well, no dysuria. No hematuria, no unusual vaginal discharge. Pain feels a little similar to a ovarian cyst that she had when she was 20 but worse. Pain is achy and constant but does common sharp crampy waves as well. No trauma or injury, no fever. Did not try taking any medication to help with her symptoms but tried a hot bath, some essential oils and repositioning. These were not particularly effective. Pain has been gradually worsening through the day. Called the nurse triage line is was advised to be evaluated States that her past medical history is benign. Denies chance of , LMP started about 12 days ago. Is currently . No long-term medications, no prior history of abdominal surgeries. No allergies. ROS notable for the abdominal symptoms as described above only, otherwise denies times 12 systems Related Data Home Medications Medication Instructions Recorded Confirmed magnesium glycinate 100 mg tablet 200 mg PO QDAY 12/17/22 07/14/23 vitamin B complex 1 tab PO DAILY 12/17/22 07/14/23 vits,calcium no.78-iron 1 tab PO DAILY 07/14/23 07/14/23 fumarate-folic acid 29 mg-1 mg tablet (Prenatabs FA) Previous Rx's Medication Instructions Recorded amoxicillin 875 mg-potassium 1 tab PO BID #10 tabs 07/12/23 clavulanate 125 mg tablet hydrocodone 5 mg-acetaminophen 325 1 - 2 tab PO Q6H PRN Pain #10 tabs 07/12/23 mg tablet ketorolac 10 mg tablet 10 mg PO TID PRN pain 5 days #15 07/12/23 tabs amoxicillin 875 mg-potassium 1 tab PO BID #4 tabs 07/15/23 clavulanate 125 mg tablet Allergies Allergy/AdvReac Type Severity Reaction Status Date / Time No Known Drug Allergies Allergy Verified 02/19/23 14:22 PFSH PFSH Medical History Severe preeclampsia ?O14.10 - Severe pre-eclampsia, unspecified trimester (ICD-10) Normal spontaneous vaginal delivery ?O80 - Encounter for full-term uncomplicated delivery (ICD-10) IBS (irritable bowel syndrome) ?K58.9 - Irritable bowel syndrome without diarrhea (ICD-10) Surgical History H/O tooth extraction ?K08.409 - Partial loss of teeth, unspecified cause, unspecified class (ICD-10) [place] teeth extracted ?K08.409 - Partial loss of teeth, unspecified cause, unspecified class (ICD-10) Family History Mother Diabetes Kidney disease ADHD PTSD (post-traumatic stress disorder) Anxiety Bipolar 1 disorder H/O gastric sleeve IBS (irritable bowel syndrome) Mammogram abnormal Abnormal Pap smear of cervix Father Asthma Brother No problems noted. 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 Lives with: Mohamud Pets: 2 dogs Abuse: Denies past/present Special Diet: Denies eats organic and limits gluten Ok with a blood transfusion: yes Culture or presybeterian beliefs: denies RISK FACTORS Exercise Times/wk: no, occ yoga and walking Depression/Anxiety: anxiety in past has 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, meds last in 2018, does go to therapy Seat Belt Use: Routinely Smoking: Denies past/present Alcohol/day: Denies while , 2-3 on occasion prior Caffeine: coffee one cup/daily, not currently Drug Use: Denies past/present Chicken Pox: vaccinated MRSA: Denies What is your current living situation?: I presently have a place to live Problems where you live: no known problems Problems where you live details: n/a In the past 12 months, utilities in danger of being shut off: declined to answer In past 12 months, lack of transportation kept you from medical appts, meetings, work, or getting things needed for daily living: no In the past 12 mos, have been you worried that your food would run out before you had money to buy more?: never true In the past 12 mos, the food you bought just didn't last and you didn't have money to buy more?: never true Smoking Status: Never smoker Do you use any of these nicotine containing products: None Second hand tobacco smoke exposure: No How often do you have a drink containing alcohol: monthly or less How often do you have six or more drinks on one occasion: Never AUDIT-C Alcohol total score: 1 Non-prescribed substance use: denies use Caffeine: Yes (occasionally) How often does anyone, including family, friends and others, physically hurt you: never How often does anyone, including family, friends and others, insult or talk down to you: never How often does anyone, including family, friends and others, threaten you with harm: never How often does anyone, including family, friends and others, scream or curse at you: never Little interest or pleasure in doing things: not at all Feeling down, depressed, or hopeless: not at all service: No Exam Const: Vital Signs, click to edit/add: Vital Signs - 24 hr 07/12/23 04:00 07/12/23 05:47 Temperature 97.3 F L Pulse Rate [Pulse Oximeter] 91 78 Respiratory Rate 16 16 Blood Pressure [Ri ght Upper Arm] 163/91 H 128/94 H Pulse Oximetry 99 98 Oxygen Delivery Me thod Room Air Room Air Documenting provider has reviewed patient's vital signs: yes Common normals: no apparent distress General appearance: well kempt HENMT: Common normals: normocephalic, moist oral mucous membranes and oropharynx normal Head and scalp: normocephalic Eye: Common normals: conjunctivae normal General eye: normal appearance of both eyes Conjunctiva: conjunctiva(e) normal Neck & C-Spine: Common normals: no lymphadenopathy Resp: Common normals: normal respiratory effort, no use of accessory muscles and clear to auscultation bilaterally Effort & inspection: able to speak in complete sentences Auscultation: clear to auscultation bilaterally Cardio: Common normals: regular rate, regular rhythm, S1 normal heart sound, S2 normal heart sound and no murmurs Rate: regular rate Rhythm: regular rhythm Heart sounds: S1 normal and S2 normal GI: Common normals: Normal to inspection, nondistended, normoactive bowel sounds present, soft to palpation and no hepatosplenomegaly Palpation: soft and no hepatosplenomegaly Other: Exquisitely tender to right lower quadrant. Difficult to assess guarding due to body habitus. Cannot discretely palpate the edges of any of the organs. Extremity: Common normals: normal to inspection, normal capillary refill and no pedal edema Psych: Common normals: speech normal Appearance: well kempt Attitude: engaged Activity/motor behavior: appropriate eye contact Speech: normal speech Insight: insight good Judgement: judgment good Skin: Common normals: no rashes or lesions noted General skin exam: no rashes or lesions noted Course Course ED Course: Right lower quadrant pain without signs of sepsis or obstruction on initial exam. Differential diagnosis including appendicitis, ovarian cyst, torsion, urinary infection, gynecological infection, colitis, intussusception, pancreatitis, among many others such as musculoskeletal, hernia, etc.. Patient declines Zofran and pain medication for now. Will obtain typical intra-abdominal labs, CT of the abdomen and pelvis after negative test is obtained. Await findings. Reevaluation(s) Time of Reevaluation #1: 06:06 Reevaluation #1: Discussed findings with patient. CT confirming suspicion for ruptured appendicitis. She still declines pain or nausea medication as her pain is not bothersome unless she attempts to move. Spoke with Dr. Ham, surgeon on-call. She will provide surgical consult, anticipate surgery later today. I will start ertapenem and lactated Ringer's for maintenance fluid, patient will remain NPO. Vital Signs Vital signs: Initial Vital Signs Temperature 97.3 F L 07/12/23 04:00 Temperature Source Temporal Artery Scan 07/12/23 04:00 Pulse Rate 91 07/12/23 04:00 Respiratory Rate 16 07/12/23 04:00 Blood Pressure 163/91 H 07/12/23 04:00 Blood Pressure Mean 115 H 07/12/23 04:00 Blood Pressure Position Sitting 07/12/23 04:00 Pulse Oximetry 99 07/12/23 04:00 Oxygen Delivery Method Room Air 07/12/23 04:00 Vital Signs Temperature 97.3 F L 07/12/23 04:00 Pulse Rate 91 07/12/23 04:00 Respiratory Rate 16 07/12/23 04:00 Blood Pressure 163/91 H 07/12/23 04:00 Pulse Oximetry 99 07/12/23 04:00 Oxygen Delivery Method Room Air 07/12/23 04:00 Temperature 97.2 F L 07/12/23 10:56 Pulse Rate 90 07/12/23 14:00 Respiratory Rate 16 07/12/23 14:00 Blood Pressure 124/67 07/12/23 14:00 Pulse Oximetry 97 07/12/23 14:00 Oxygen Delivery Method Room Air 07/12/23 14:00 Oxygen Flow Rate 6 07/12/23 14:00 Medications Administered Medications: Discontinued Medications Generic Name Dose Route Start Last Admin Trade Name Freq PRN Reason Stop Dose Admin Hydrocodone Bitart/Acetaminophen 1 - 2 tab 07/12/23 09:45 07/12/23 11:20 Hydrocodone-Acetamin 5-325 Mg 1 Tab PO 1 tab Q4H PRN Administration Pain Bupivacaine HCl 20 ml 07/12/23 07:59 07/12/23 07:59 Bupivacaine 0.25% 30 Ml INJECTION 07/12/23 08:00 20 ml ONCE ONE Administration Fentanyl 50 mcg 07/12/23 06:47 07/12/23 10:19 Fentanyl 100 Mcg/2 Ml Inj IVP 50 mcg Q5M PRN Administration Pain Hydroxyzine Pamoate 25 mg 07/12/23 06:47 07/12/23 11:20 Hydroxyzine Pamoate 25 Mg Capsule PO 07/12/23 06:48 25 mg ONCE ONE Administration Ertapenem 1 gm/ Sodium 100 mls @ 200 mls/hr 07/12/23 05:57 07/12/23 06:51 Chloride IVPB 07/12/23 05:58 Infused ONCE ONE Infusion Lactated Ringer's 1,000 mls @ 150 mls/hr 07/12/23 06:05 07/12/23 13:51 Lactated Ringers 1000 Ml IV Infused .Q6H40M TYLER Infusion Ketorolac Tromethamine 15 mg 07/12/23 09:45 07/12/23 11:15 Ketorolac 15 Mg/Ml Inj IVP 15 mg ONCE PRN Administration Pain Meperidine HCl 12.5 mg 07/12/23 06:47 07/12/23 10:05 Meperidine 25 Mg/Ml Inj IVP 12.5 mg ONCE PRN Administration [place] Medical Decision Making Lab Data Labs: Lab Results 07/12/23 07/12/23 07/12/23 Range/Units 04:30 04:36 05:58 WBC 8.49 (4.50-11.00) K/uL RBC 4.65 (4.00-5.20) m/uL Hgb 12.7 (12.0-16.0) gm/dL Hct 39.7 (33.0-51.0) % MCV 85 (80-100) fL MCH 27 (26-34) pg MCHC 32 (32-36) gm/dL RDW Coeff of You 13.0 (11.5-15.5) % Plt Count 352 (140-440) K/uL Neut % (Auto) 69.0 (42.0-72.0) % Lymph % (Auto) 24.0 (20-44) % Park % (Auto) 4.5 (0.0-11.0) % Eos % (Auto) 2.0 (0.0-7.0) % Baso % (Auto) 0.4 (0.0-3.0) % Neut # (Auto) 5.86 (1.7-7.0) K/uL Lymph # (Auto) 2.04 (0.90-2.90) K/uL Park # (Auto) 0.40 (0.00-0.90) K/UL Eos # (Auto) 0.17 (0.00-0.50) K/uL Baso # (Auto) 0.03 (0.00-0.30) K/uL Abs Immat Gran (auto) 0.01 (0.00-0.30) K/uL Imm/Tot Granulo (auto) 0.1 % Sodium 143 (135-149) mmol/L Potassium 3.5 L (3.6-5.1) mmol/L Chloride 109 (96-114) mmol/L Carbon Dioxide 27 (20-32) mmol/L Anion Gap 7 (7-15) mEq/L BUN 17 (5-24) mg/dL Creatinine 0.7 (0.5-1.5) mg/dL Estimated Creat Clear 97.21 Estimated GFR 119 ml/min Glucose 98 (60-115) mg/dL Lactate 0.8 (0.5-1.9) mmol/L Calcium 8.7 (8.4-10.6) mg/dL Total Bilirubin 0.2 (0.1-1.5) mg/dL AST 41 H (12-35) U/L ALT 58 H (4-35) U/L Alkaline Phosphatase 105 (40-150) U/L C-Reactive Protein 3.0 H (0.5-1.0) mg/dL Total Protein 7.9 (6.0-8.3) g/dL Albumin 4.3 (3.3-5.0) g/dL Lipase 82 (23-300) U/L HCG, Quant < 2.39 mIU/mL Urine Color Yellow (Yellow) Urine Appearance Clear (Clear) Urine pH 6.0 (5.0-8.5) Ur Specific [place] 1.020 (1.000-1.030) Urine Protein Negative (Negative) Urine Glucose (UA) Negative (Negative) Urine Ketones Negative (Negative) Urine Blood Negative (Negative) Urine Nitrite Negative (Negative) Urine Bilirubin Negative (Negative) Urine Urobilinogen 0.2 (0.2-1.0) Ur Leukocyte Esterase Negative (Negative) Urine HCG, Qual Negative (Negative) Lab Acknowledgement Test Added Discharge Plan Discharge Clinical Impression: Acute appendicitis with rupture Patient Disposition: XFER to OR Condition: Stable
[2023-07-12 04:42] LABS: Lactate* 0.8 mmol/L (0.5-1.9)
[2023-07-12 04:45] LABS: Appearance Urine Clear (Clear); Bilirubin Urine Negative (Negative); Blood Urine Negative (Negative); Color Urine Yellow (Yellow); Glucose Urine Negative (Negative); Ketones Urine Negative (Negative); Leukocyte Esterase Urine Negative (Negative); Nitrite Urine Negative (Negative); Protein Urine Negative (Negative); Urobilinogen Urine 0.2 (0.2-1.0)
[2023-07-12 04:58] LABS: Albumin* 4.3 g/dL (3.3-5.0); Chloride* 109 mmol/L (96-114)
[2023-07-12 04:59] LABS: Potassium* 3.5 mmol/L (3.6-5.1); Sodium* 143 mmol/L (135-149)
[2023-07-12 05:01] LABS: Bilirubin Total* 0.2 mg/dL (0.1-1.5); Creatinine* 0.7 mg/dL (0.5-1.5); Est. Creatinine Clearance* 97.21; Estimated Glomerular Filt Rate 119 ml/min
[2023-07-12 05:02] LABS: Alanine Aminotransferase* 58 U/L (4-35); Alkaline Phosphatase* 105 U/L (40-150); Anion Gap 7 mEq/L (7-15); Aspartate Amino Transferase* 41 U/L (12-35); Blood Urea Nitrogen* 17 mg/dL (5-24); Calcium* 8.7 mg/dL (8.4-10.6); Carbon Dioxide* 27 mmol/L (20-32); Glucose* 98 mg/dL (60-115); Lipase* 82 U/L (23-300); Total Protein* 7.9 g/dL (6.0-8.3)
[2023-07-12 05:14] LABS: Ur HCG Qualitative* Negative (Negative)
[2023-07-12 05:21] LABS: HCG Quantitative* < 2.39 mIU/mL
[2023-07-12 06:03] LABS: Basophils Absolute Auto 0.03 K/uL (0.00-0.30); Basophils Percent Auto 0.4 % (0.0-3.0); Eosinophils Absolute Auto 0.17 K/uL (0.00-0.50); Hematocrit 39.7 % (33.0-51.0); Hemoglobin* 12.7 gm/dL (12.0-16.0); Immature Granulocytes Abs Auto 0.01 K/uL (0.00-0.30); Immature Granulocytes Pct Auto 0.1 %; Lymphocytes Absolute Auto 2.04 K/uL (0.90-2.90); Mean Corpuscular HGB Conc 32 gm/dL (32-36); Mean Corpuscular Hemoglobin 27 pg (26-34); Mean Corpuscular Volume 85 fL (80-100); Monocytes Percent Auto 4.5 % (0.0-11.0); Neutrophils Absolute Auto 5.86 K/uL (1.7-7.0); Platelet Count* 352 K/uL (140-440); Red Blood Count 4.65 m/uL (4.00-5.20); Slide Review Reflex No; White Blood Count* 8.49 K/uL (4.50-11.00)
[2023-07-12] MEDS: ERTAPENEM 1 GM in 0.9 % SODIUM CHLORIDE Mini-bag 100 ML IVPB (06:08)
[2023-07-12] MEDS: LACTATED RINGERS 1000 ML 1,000 ML 150 ML IV ×2 (06:51→08:50)
--- NOTE | 2023-07-12 07:26 | P.GSHP_ITS ---
History of Present Illness History of Present Illness Date Seen: 07/12/23 Chief complaint: Pain on R side Narrative: Natacha Joseph is a 28 year old female Who presented to the emergency department overnight with abdominal pain. She states that approximately 5 days ago she did not feel well. She states that she had discomfort under her belly button and nausea. She states that she had which she felt was random right- sided pain. She thought it was related to ovarian cyst because she has had those before. However over the next 2 days she felt somewhat better. Yesterday the pain became much worse and she could not sit. She states that she has pain with movement. Her bowel movements have been softer in yesterday afternoon she had diarrhea. She has not had any fevers but she did feel like perhaps she could of been febrile on Saturday. She has not had any urinary symptoms. She has had fatigue. She is currently 8 months and is breast-feeding. [facility] Medical History Severe preeclampsia ?O14.10 - Severe pre-eclampsia, unspecified trimester (ICD-10) Normal spontaneous vaginal delivery ?O80 - Encounter for full-term uncomplicated delivery (ICD-10) IBS (irritable bowel syndrome) ?K58.9 - Irritable bowel syndrome without diarrhea (ICD-10) Surgical History H/O tooth extraction ?K08.409 - Partial loss of teeth, unspecified cause, unspecified class (ICD- 10) [place] teeth extracted ?K08.409 - Partial loss of teeth, unspecified cause, unspecified class (ICD- 10) Family History (Updated 07/12/23 @ 07:29 by Gloria Del Rosario MD) Mother Diabetes Kidney disease ADHD PTSD (post-traumatic stress disorder) Anxiety Bipolar 1 disorder H/O gastric sleeve IBS (irritable bowel syndrome) Mammogram abnormal Abnormal Pap smear of cervix Father Asthma Brother No problems noted. 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 Lives with: Mohamud Pets: 2 dogs Abuse: Denies past/present Special Diet: Denies eats organic and limits gluten Ok with a blood transfusion: yes Culture or holiness beliefs: denies RISK FACTORS Exercise Times/wk: no, occ yoga and walking Depression/Anxiety: anxiety in past has 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, meds last in 2018, does go to therapy Seat Belt Use: Routinely Smoking: Denies past/present Alcohol/day: Denies while , 2-3 on occasion prior Caffeine: coffee one cup/daily, not currently Drug Use: Denies past/present Chicken Pox: vaccinated MRSA: Denies What is your current living situation?: I presently have a place to live Problems where you live: no known problems In the past 12 months, utilities in danger of being shut off: declined to answer In past 12 months, lack of transportation kept you from medical appts, meetings, work, or getting things needed for daily living: no In the past 12 mos, have been you worried that your food would run out before you had money to buy more?: never true In the past 12 mos, the food you bought just didn't last and you didn't have money to buy more?: never true Smoking Status: Former smoker Non-prescribed substance use: denies use How often does anyone, including family, friends and others, physically hurt you : never How often does anyone, including family, friends and others, insult or talk down to you: never How often does anyone, including family, friends and others, threaten you with harm: never How often does anyone, including family, friends and others, scream or curse at you: never Little interest or pleasure in doing things: not at all Feeling down, depressed, or hopeless: not at all Meds Home Medications and Allergies Home Medications Medication Instructions Recorded Confirmed Type prenat.vits,gurpreet,fqi-avuu-iujje 1 tab PO QDAY 03/19/22 02/19/23 History magnesium glycinate 100 mg tablet 200 mg PO QDAY 12/17/22 02/19/23 History vitamin B complex 1 tab PO QDAY 12/17/22 02/19/23 History Allergies Allergy/AdvReac Type Severity Reaction Status Date / Time No Known Drug Allergies Allergy Verified 02/19/23 14:22 Exam Narrative: Exam Narrative: General appearance: Alert, cooperative, and in no distress Eyes: PERRLA, eye lids clear, and sclera white HENT Head: Normocephalic Ears: External ears normal Pulmonary: Clear to auscultation bilaterally Cardiovascular Heart: Regular rate and rhythm Extremities: warm and well perfused Gastrointestinal Abdominal: Obese. She is tender in the right lower quadrant with guarding and rebound. She is tender in the right lower quadrant with palpation of the left. No abdominal scars. No visible hernias. Musculoskeletal: Extremities: Upper: Both upper extremities have normal joint range of motion and intact strength. Lower: Both lower extremities have normal joint range of motion and intact strength. Skin: Normal skin color, texture, and turgor. Neurologic: No focal deficits Psychiatric: Alert, oriented, cooperative, normal affect. Const: Vital Signs, click to edit/add: Vital Signs - 24 hr 07/12/23 04:00 07/12/23 05:47 07/12/23 06:21 Temperature 97.3 F L 98.4 F Pulse Rate [Pulse Oximeter] 91 78 Respiratory Rate 16 16 Blood Pressure [Ri ght Upper Arm] 163/91 H 128/94 H Pulse Oximetry 99 98 Oxygen Delivery Me thod Room Air Room Air Results Results Labs: White blood cell count done today was 8.4. CRP is 3 AST and ALT are mildly elevated. Potassium mildly low at 3.5 Additional studies: Patient: NATACHA JOSEPH Facility:?[facility] Patient ID:?[id number] Site Patient ID:?[id number]. Site :?[id number] Study:?CT-Abdomen/Pelvis W/ISOVUE 370 106CC-07/12/2023 5:32:31 AM Ordering Physician:VICKIE Final Report: INDICATION: Right lower quadrant pain COMPARISON: None. TECHNIQUE: CT of the abdomen and pelvis with intravenous contrast. Multiplanar reformats are included. Contrast: 106 mL Isovue 370 FINDINGS: Lung bases: Normal. Liver: Normal. No mass. Gallbladder and bile ducts: Normal gallbladder. No bile duct dilation. Pancreas: Normal. Spleen: Normal. Adrenal glands: Normal. Kidneys: Normal parenchyma. No cyst or solid mass. No calculi. No urinary tract dilation. Urinary bladder: Normal. Vessels: Normal. Pelvis: No cyst or mass. Bowel: At the cecal tip in the right lower quadrant there is a 3.3 x 3.8 x 4.7 centimeter ill-defined inflammatory mass/phlegmon with a central 0.7 centimeter coarse calcification. Findings are consistent with acute ruptured appendicitis without an abscess. No other dilated or inflamed bowel. There are some reactive lymph nodes in the right lower quadrant mesentery. No free air. Mild stool burden. Lymph nodes: Reactive right lower quadrant mesenteric lymph nodes. Peritoneum: No ascites. Bones: No fractures. No focal worrisome bone lesions. Abdominal wall: Mild diastasis at the umbilicus. IMPRESSION: Ruptured appendicitis with a central appendicolith and phlegmon, but no percutaneously drainable abscess. Progress Note:A&P Assessment and plan (1) Acute appendicitis with rupture: Status: Acute (2) Obesity, Class II, BMI 35-39.9: Status: Acute (3) Anxiety: Status: Acute Plan The patient is a 28-year-old female with acute appendicitis with likely perforation. We discussed that appendectomy is the preferred treatment for this when appendicitis is discovered prior to abscess formation. This can most often be done laparoscopically. We discussed risks and benefits of the procedure including but not limited to bleeding, need for conversion to open, risk of injury to other structures, need for possible bowel resection, and abscess formation. The patient understands that the risk of abscess is higher if the appendix is perforated. For that reason, we generally keep patient is in the hospital on IV antibiotics until vital signs and white blood cell count had normalized. We also discussed recovery including 2 weeks of lifting restrictions. She is agreeable to proceed and signed informed consent. We will plan on surgery emergently this morning.
[2023-07-12] MEDS: BUPIVACAINE 0.25% 30 ML 20 ML INJECTION (07:59)
--- NOTE | 2023-07-12 08:58 | SUR.OPER ---
PATIENT QUESTIONS ANSWERED SATISFACTORILY PREOPERATIVELY. PATIENT BROUGHT TO OR #4 PER CART. Patient positioned supine on OR #4 bed. The perioperative team supported arms bilaterally on arm boards. Final approval of positioning by surgeon. ALBERTA, PT. , UPDATED BY PHONE CALL AT 08:59.
--- NOTE | 2023-07-12 09:24 | P.ANES_ITS ---
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
--- NOTE | 2023-07-12 09:46 | P.GSOP_ITS ---
Operative Note Date of procedure: 07/12/23 Pre-op diagnosis: Acute, perforated appendicitis Post-op diagnosis: Acute appendicitis with contained perforation Type of Procedure: Laparoscopic appendectomy Indications: The patient is a 28 year old female who presented to the emergency department with several days of abdominal pain. CT showed perforated appendicitis with phlegmon. Appendectomy was recommended and she agreed to proceed. Procedure Description: After discussing the risks and benefits of the procedure, the patient signed informed consent.? The operative site was marked and the patient was brought to the operating room and placed on the operating table in supine position.? Care was taken to pad the patient's pressure points.?? The patient was then intubated by anesthesia.?? The operative site was then prepped and draped in the usual sterile fashion.? A time-out was then performed. Entrance to the abdomen was obtained via a 5 mm optical trocar in the left upper quadrant. The abdomen was insufflated and briefly surveyed for any signs of injury. There were none. A 12 mm port was placed inferior to the umbilicus as well as a 5 mm port in the left lower quadrant. Both were done under direct vision. The patient was then placed in Trendelenburg position with the right s mili up. The small bowel was gently moved out of the way and the appendix was in view. It was markedly inflamed and adhered to the retroperitoneum. There was no significant purulence in the pelvis. The appendix was firm and dilated and difficult to grasp. I began by attempting to bluntly dissect the tip of the appendix from the retroperitoneum. I was able to do this partially before what appeared to be the mesoappendix was found to be densely adherent to the retroperitoneum. The appendix was so dilated that it could not be grasped easily. I examined the terminal ileum and the cecum. The terminal ileal fat pad was stuck to the appendix. This was able to be carefully bluntly dissected away. The cecum was examined. I could see the base of the cecum and tinea to roughly identify the area of the appendiceal base. I then elected to use the LigaSure to divide the thickened and inflamed mesoappendix. This was done until a small abscess was encountered. This may have been within the appendiceal lumen versus in the mesoappendix, however the purulence was contained and there was no gross spillage into the abdomen. I took my dissection with the [place] laterally to the lateral attachment of the cecum. This was divided and the inflammatory mass was pulled anteriorly. I then continued to carefully dissect the area of the appendiceal base, dividing the mesenteric fat. Once I was able to dissect free the appendiceal base circumferentially, I examined the area. The terminal ileum was pulled close to the base of the appendix because of the inflammation, however it was far enough away that I felt I would be able to staple across the base of the appendix. The base of the appendix was thickened and inflamed as well as the base of the cecum, however I did feel as though I would be able to staple across it. A purple load Endo-SVETA stapler was advanced into the abdomen and placed across the base the appendix. I placed this where I could see the tinea on the cecum and to ensure that I was down to the base. The stapler was placed on the tissue which was again quite thick. The stapler was fired and 1 corner of tissue remained connected. A 2nd staple load was used to completely divide the appendix from the cecum. I examined the staple line. It was intact. There was minimal bleeding. The appendix was removed from the abdomen using a specimen bag through the umbilicus. Of note the appendix was so large in firm that the incision and fascia needed to be extended in order to remove the appendix. I then placed 0 Vicryl [id number] sutures in the fascia of the infraumbilical port site and pulled them snug around the infraumbilical port to hold in pneumoperitoneum while I examined the abdomen. There was a small amount of blood in the appendiceal bed, however no obvious bleeding. There was no purulence noted. The staple line again appeared healthy and intact. I did place a piece of Surgicel in the bed of the appendix in the area of dissection. The ports were then removed and the abdomen was desufflated. The fascial suture for the umbilical port site was then secured and the skin was then closed with absorbable subcuticular suture. Sterile dressings were then applied. ? The patient was then woken and transported to the recovery area in stable condition. ? The patient tolerated the procedure well. Findings: Acute appendicitis with marked inflammation and smalll contained perforation. Anesthesia: GETA Surgeon: Gloria Del Rosraio MD Estimated blood loss (mL): 5 Specimen: Appendix Condition: stable Disposition: PACU
[2023-07-12] MEDS: MEPERIDINE 25 MG/ML INJ 12.5 MG IVP (10:05)
--- NOTE | 2023-07-12 10:07 | W.ANESCHARGE ---
Anesthesia Charges Start Date/Time Anesthesia Start Date: 07/12/23 Anesthesia Start Time: 07:32 Stop Date/Time Anesthesia Stop Date: 07/12/23 Anesthesia Stop Time: 10:04 Summary Emergency: MDA
[2023-07-12] MEDS: fentaNYL 100 MCG/2 ML inj 50 MCG IVP ×2 (10:11→10:19)
[2023-07-12] MEDS: KETOROLAC 15 MG/ML inj IVP (11:15)
[2023-07-12] MEDS: HYDROCODONE-ACETAMIN 5-325 MG 1 TAB PO (11:20)
[2023-07-12] MEDS: hydrOXYzine pamoate 25 MG CAPSULE PO (11:20)
--- NOTE | 2023-07-12 11:44 | SUR.PHASEII ---
Pt tolerating crackers and sprite. Upon arrival from PACU pt states pain is 10/10, see flacc scale. Per Dr. Del Rosario, pt states she didn't want to take narcotics due to breast feeding, however, she is okay with taking them now to get her pain more tolerable. Pt in room with , supportive a bedside, pt pumping.
--- NOTE | 2023-07-12 15:05 | SUR.PHASEII ---
IV removed. pain 2/10 at discharge. pt denied concerns and denied further questions.
== END 2023-07-12 15:07 | disposition home or self-care (01) ==
LOC: ED 06:28 → SS 08:00
PROVIDERS: Emergency Provider Family Medicine; Visit Provider Surgery
PROC: 0DTJ4ZZ Resection of Appendix, Percutaneous Endoscopic Approach (ICD-10-PCS; CPT 44970; principal; 2023-07-12 07:00)
DX: K35.33 Acute appendicitis with perforation, localized peritonitis, and gangrene, with abscess (principal); R10.31 Right lower quadrant pain; E66.9 Obesity, unspecified; Z68.38 Body mass index [BMI] 38.0-38.9, adult; F41.9 Anxiety disorder, unspecified
CPT/HCPCS: 44970; 00840; 36415; 74177; 80053; 81003; 81025; 83605; 83690; 84702; 85025; 86140; 88304; 99140; 99284; 99285; A9270; J0330; J0665; J1100; J1170; J1335; J1885; J2175; J2250; J2405; J2704; J2710; J3010; J7120; Q9967

== ENCOUNTER 2023-07-13 18:46 | Observation (INO) | payer OTHER, SELFPAY ==
[2023-07-13 18:52] VITALS: BP 148/79; PULSE 105; RESP 18; TEMP 38; O2SAT 99; BMI 38.1
--- NOTE | 2023-07-13 19:06 | ED_ITS ---
HPI - General Adult General Time Seen by Provider: 19:06 Date Seen: 07/13/23 Chief complaint: Post Op Complication Stated complaint: Post op; fever over 101.5 Time Seen by Provider: 07/13/23 18:53 Source: patient and RN notes reviewed Mode of arrival: ambulatory Limitations: no limitations History of Present Illness HPI narrative: This 28yo female is ambulatory into the ED with postoperative fever at home before coming in, temperature went up to 101.5F. She started feeling feverish this afternoon. Just had laparoscopic appendectomy yesterday. Appendix reporte dly showed perforation on the CT but at time of surgery, there was no clinical evidence of this. She does have abdominal discomfort but not necessarily worsening. No stool since surgery. Does feel some urinary discomfort but isn't sure that it isn't just uncomfortable from having abdominal surgery. No cough or nasal drainage. Throat feels dry and some discomfort with eating things like crackers but she was intubated for the procedure. Her daughter was in the ED last night for a fever, had negative triple swab. Continues with fevers, coryza and some cough but is also teething per parents. Dr. Del Rosario did take this phone call when patient called with reported fever, did alert us to her coming in. Patient was discharged on Augmentin for antibiotic yesterday. Related Data Home Medications Medication Instructions Recorded Confirmed prenat.vits,gurpreet,tfy-pxzx-uwynp 1 tab PO QDAY 03/19/22 02/19/23 magnesium glycinate 100 mg tablet 200 mg PO QDAY 12/17/22 02/19/23 vitamin B complex 1 tab PO QDAY 12/17/22 02/19/23 Previous Rx's Medication Instructions Recorded amoxicillin 875 mg-potassium 1 tab PO BID #10 tabs 07/12/23 clavulanate 125 mg tablet hydrocodone 5 mg-acetaminophen 325 1 - 2 tab PO Q6H PRN Pain #10 tabs 07/12/23 mg tablet ketorolac 10 mg tablet 10 mg PO TID PRN pain 5 days #15 07/12/23 tabs Allergies Allergy/AdvReac Type Severity Reaction Status Date / Time No Known Drug Allergies Allergy Verified 02/19/23 14:22 Review of Systems Status of ROS: Reports: 6 or more systems reviewed and unremarkable except as noted in History and below [facility] Medical History Severe preeclampsia ?O14.10 - Severe pre-eclampsia, unspecified trimester (ICD-10) Normal spontaneous vaginal delivery ?O80 - Encounter for full-term uncomplicated delivery (ICD-10) IBS (irritable bowel syndrome) ?K58.9 - Irritable bowel syndrome without diarrhea (ICD-10) Surgical History H/O tooth extraction ?K08.409 - Partial loss of teeth, unspecified cause, unspecified class (ICD- 10) [place] teeth extracted ?K08.409 - Partial loss of teeth, unspecified cause, unspecified class (ICD- 10) Family History Mother Diabetes Kidney disease ADHD PTSD (post-traumatic stress disorder) Anxiety Bipolar 1 disorder H/O gastric sleeve IBS (irritable bowel syndrome) Mammogram abnormal Abnormal Pap smear of cervix Father Asthma Brother No problems noted. 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[employer] tech Lives with: Mohamud Pets: 2 dogs Abuse: Denies past/present Special Diet: Denies eats organic and limits gluten Ok with a blood transfusion: yes Culture or confucianism beliefs: denies RISK FACTORS Exercise Times/wk: no, occ yoga and walking Depression/Anxiety: anxiety in past has 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, meds last in 2018, does go to therapy Seat Belt Use: Routinely Smoking: Denies past/present Alcohol/day: Denies while , 2-3 on occasion prior Caffeine: coffee one cup/daily, not currently Drug Use: Denies past/present Chicken Pox: vaccinated MRSA: Denies What is your current living situation?: I presently have a place to live Problems where you live: no known problems In the past 12 months, utilities in danger of being shut off: declined to answer In past 12 months, lack of transportation kept you from medical appts, meetings, work, or getting things needed for daily living: no In the past 12 mos, have been you worried that your food would run out before you had money to buy more?: never true In the past 12 mos, the food you bought just didn't last and you didn't have money to buy more?: never true Smoking Status: Former smoker Do you use any of these nicotine containing products: None Second hand tobacco smoke exposure: No How often do you have a drink containing alcohol: never How often do you have six or more drinks on one occasion: Never AUDIT-C Alcohol total score: 0 Non-prescribed substance use: denies use How often does anyone, including family, friends and others, physically hurt you : never How often does anyone, including family, friends and others, insult or talk down to you: never How often does anyone, including family, friends and others, threaten you with harm: never How often does anyone, including family, friends and others, scream or curse at you: never Little interest or pleasure in doing things: not at all Feeling down, depressed, or hopeless: not at all service: No Exam Const: Vital Signs, click to edit/add: Vital Signs - 24 hr 07/13/23 18:52 07/13/23 19:41 07/13/23 19:41 Temperature 100.4 F H 101.5 F H Pulse Rate [Pulse Oximeter] 105 H Respiratory Rate 18 Blood Pressure [Ri ght Upper Arm] 148/79 H Pulse Oximetry 99 98 Oxygen Delivery Me thod Room Air 07/13/23 20:21 07/13/23 21:02 Temperature 100.5 F H 100.0 F H Pulse Rate [Pulse Oximeter] 95 80 Respiratory Rate 18 18 Blood Pressure [Ri ght Upper Arm] 136/75 138/74 Pulse Oximetry 98 98 Oxygen Delivery Me thod Room Air Room Air Patient is alert, interactive, no apparent distress. Standing in room when I come in but is able to slowly make it onto the ED bed. Sclera clear, conjugate gaze. Face with flushed cheeks but no rash. Neck supple, no adenopathy. Lungs clear, no wheezing or crackles, no tachypnea. CV currently regular rate and rhythm, no murmur (note that she was mildly tachycardic on arrival). Abdomen is soft, non-distended, no rebound or guarding noted. Port sites look to be clean, dry and intact without any erythema or drainage. The port site above the pubic area has some inferior red to mildly purplish change like developing bruising but this area is not warm, no induration or increased tenderness. Lower extremities without edema or tenderness. Documenting provider has reviewed patient's vital signs: yes Course Course ED Course: 28-year-old female with postoperative fever but ill child with likely viral upper respiratory infection with fever herself. Patient does have some mild urinary changes. She is having no respiratory symptoms. Will look for sources of infection. Overall I find her abdominal exam to be reassuring. I am not going to order abdominal imaging at this time. Will await labs, talked to the surgeon once I have some of her evaluation back. This time I am not inclined to think that this is postoperative abdominal infection complicating her surgery. Will await labs, follow patient clinically here. Reevaluation(s) Time of Reevaluation #1: 20:45 Reevaluation #1: Reviewed with patient my discussion with Dr. Del Rosario, she recommends initiation of IV antibiotics and placing her in the hospital overnight. She has hypokalemia, likely dilutional from fluids. Did order oral effervescent potassium. Did review with patient that we do need blood cultures, will get these before initiating Zosyn. Consultations Consultation #1: Reviewed labs and my clinical findings with Dr. Del Rosario. She agrees with no CT imaging at this time, does want the patient put in the hospital overnight for IV antibiotics. She will contact the hospitalist, I will wait to hear from him. 9:00 p.m.: Dr. Del Rosario states that Dr. Ballard has agreed to admit patient. Time: 20:34 Consultation #2: Have given sign-out to Dr. Ballard. He will admit the patient tonight. Time: 21:30 Vital Signs Vital signs: Initial Vital Signs Temperature 100.4 F H 07/13/23 18:52 Temperature Source Temporal Artery Scan 07/13/23 18:52 Pulse Rate 105 H 07/13/23 18:52 Respiratory Rate 18 07/13/23 18:52 Blood Pressure 148/79 H 07/13/23 18:52 Blood Pressure Mean 102 07/13/23 18:52 Blood Pressure Position Supine 07/13/23 18:52 Pulse Oximetry 99 07/13/23 18:52 Oxygen Delivery Method Room Air 07/13/23 18:52 Vital Signs Temperature 100.4 F H 07/13/23 18:52 Pulse Rate 105 H 07/13/23 18:52 Respiratory Rate 18 07/13/23 18:52 Blood Pressure 148/79 H 07/13/23 18:52 Pulse Oximetry 99 07/13/23 18:52 Oxygen Delivery Method Room Air 07/13/23 18:52 Temperature 100.0 F H 07/13/23 21:02 Pulse Rate 80 07/13/23 21:02 Respiratory Rate 18 07/13/23 21:02 Blood Pressure 138/74 07/13/23 21:02 Pulse Oximetry 98 07/13/23 21:02 Oxygen Delivery Method Room Air 07/13/23 21:02 Medications Administered Medications: Generic Name Dose Route Start Last Admin Trade Name Freq PRN Reason Stop Dose Admin Piperacillin Sod/Tazobactam 100 mls @ 200 mls/hr 07/13/23 21:00 07/13/23 21:26 Sod 3.375 gm/ Sodium Chloride IVPB 200 mls/hr Q6H TYLER Administration Discontinued Medications Generic Name Dose Route Start Last Admin Trade Name Freq PRN Reason Stop Dose Admin Sodium Chloride 1,000 mls @ 500 mls/hr 07/13/23 19:13 07/13/23 19:44 0.9 % Sodium Chloride 1000 Ml IV 07/13/23 21:12 500 mls/hr .Q2H TYLER Administration Potassium Bicarbonate 25 meq 07/13/23 20:18 07/13/23 20:32 Potassium Bicarb 25 Meq Effervescent Tab PO 07/13/23 20:19 25 meq ONCE ONE Administration Medical Decision Making Lab Data Lab results reviewed: Yes I reviewed the patient's lab results Labs: Lab Results 07/13/23 07/13/23 07/13/23 Range/Units 19:15 19:18 19:41 WBC 9.88 (4.50-11.00) K/uL RBC 3.78 L (4.00-5.20) m/uL Hgb 10.5 L (12.0-16.0) gm/dL Hct 32.4 L (33.0-51.0) % MCV 86 (80-100) fL MCH 28 (26-34) pg MCHC 32 (32-36) gm/dL RDW Coeff of You 13.0 (11.5-15.5) % Plt Count 350 (140-440) K/uL Neut % (Auto) 73.1 H (42.0-72.0) % Lymph % (Auto) 20.2 (20-44) % [place] % (Auto) 5.1 (0.0-11.0) % Eos % (Auto) 0.8 (0.0-7.0) % Baso % (Auto) 0.4 (0.0-3.0) % Neut # (Auto) 7.20 H (1.7-7.0) K/uL Lymph # (Auto) 2.00 (0.90-2.90) K/uL [place] # (Auto) 0.50 (0.00-0.90) K/UL Eos # (Auto) 0.08 (0.00-0.50) K/uL Baso # (Auto) 0.04 (0.00-0.30) K/uL Abs Immat Gran (auto) 0.04 (0.00-0.30) K/uL Imm/Tot Granulo (auto) 0.4 % Sodium 136 (135-149) mmol/L Potassium 2.9 L* (3.6-5.1) mmol/L Chloride 104 (96-114) mmol/L Carbon Dioxide 27 (20-32) mmol/L Anion Gap 5 L (7-15) mEq/L BUN 12 (5-24) mg/dL Creatinine 0.7 (0.5-1.5) mg/dL Estimated Creat Clear 97.21 Estimated GFR 119 ml/min Glucose 91 (60-115) mg/dL Lactate 0.9 (0.5-1.9) mmol/L Calcium 8.3 L (8.4-10.6) mg/dL C-Reactive Protein 16.8 H (0.5-1.0) mg/dL Urine Color Yellow (Yellow) Urine Appearance Clear (Clear) Urine pH 6.5 (5.0-8.5) Ur Specific [place] <= 1.005 (1.000-1.030) Urine Protein Negative (Negative) Urine Glucose (UA) Negative (Negative) Urine Ketones 1+ A (Negative) Urine Blood Negative (Negative) Urine Nitrite Negative (Negative) Urine Bilirubin Negative (Negative) Urine Urobilinogen 0.2 (0.2-1.0) Ur Leukocyte Esterase Trace A (Negative) Urine RBC 0-2 (0-2) Urine WBC 0-2 (0-5) Ur Squamous Epith Cells Few (None-Few) Urine Bacteria Few A (None) SARS-CoV-2 (PCR) Negative SARS-CoV-2 (Negative) Influenza Type A (PCR) Negative PCR FLU A (Negative) Influenza Type B (PCR) Negative PCR FLU B (Negative) RSV (PCR) Negative PCR RSV (Negative) Blood cultures will be drawn. Imaging Data Chest x-ray: Attestation: I have reviewed the pertinent imaging results. My impression: I see no acute pathology on my preliminary review. Radiologist's impression: Patient: NATACHA ZAPATA Facility:?[facility] Patient ID:?[id number] Site Patient ID:?[id number]. Site :?1995 Study:?XRay-Chest PORTABLE-07/13/2023 7:24:39 PM Ordering Physician:JULIAN Final Report: Indication fever post op appy- 07/12/23 Technique One view(s) of the chest Comparison None Findings The cardiomediastinal silhouette and pulmonary vasculature are unremarkable. There is no focal airspace consolidation, pleural effusion, or pneumothorax. No displaced fractures. Impression No acute cardiopulmonary process. Dictated by Shmuel Ramos MD @ 07/13/2023 7:57:45 PM (Electronic Signature) Discharge Plan Discharge Clinical Impression: Postoperative fever, Acute hypokalemia, Status post laparoscopic appendectomy Patient Disposition: Admitted As Observation
--- NOTE | 2023-07-13 19:12 | XR_ITS ---
Patient: NATACHA ZAPATA Facility:?[facility] Patient ID:?[id number] Site Patient ID:?[id number]. Site :?1995 Study:?XRay-Chest PORTABLE-07/13/2023 7:24:39 PM Ordering Physician:JULIAN Final Report: Indication fever post op appy- 07/12/23 Technique One view(s) of the chest Comparison None Findings The cardiomediastinal silhouette and pulmonary vasculature are unremarkable. There is no focal airspace consolidation, pleural effusion, or pneumothorax. No displaced fractures. Impression No acute cardiopulmonary process. Dictated by Shmuel Ramos MD @ 07/13/2023 7:57:45 PM Signed by:?Shmuel Ramos MD @07/13/2023 7:57:45 PM (Electronic Signature)
[2023-07-13 19:39] LABS: Basophils Absolute Auto 0.04 K/uL (0.00-0.30); Basophils Percent Auto 0.4 % (0.0-3.0); Eosinophils Absolute Auto 0.08 K/uL (0.00-0.50); Eosinophils Percent Auto 0.8 % (0.0-7.0); Hematocrit 32.4 % (33.0-51.0); Hemoglobin* 10.5 gm/dL (12.0-16.0); Immature Granulocytes Abs Auto 0.04 K/uL (0.00-0.30); Immature Granulocytes Pct Auto 0.4 %; Lactate* 0.9 mmol/L (0.5-1.9); Lymphocytes Percent Auto 20.2 % (20-44); Mean Corpuscular HGB Conc 32 gm/dL (32-36); Mean Corpuscular Hemoglobin 28 pg (26-34); Mean Corpuscular Volume 86 fL (80-100); Monocytes Percent Auto 5.1 % (0.0-11.0); Neutrophils Percent Auto 73.1 % (42.0-72.0); Platelet Count* 350 K/uL (140-440); Red Blood Count 3.78 m/uL (4.00-5.20); White Blood Count* 9.88 K/uL (4.50-11.00)
[2023-07-13 19:41] VITALS: TEMP 38.6; O2SAT 98
[2023-07-13 19:43] LABS: Slide Review Reflex No
[2023-07-13] MEDS: 0.9 % SODIUM CHLORIDE 1000 ml 1,000 ML 500 ML IV (19:44)
[2023-07-13 20:00] LABS: Chloride* 104 mmol/L (96-114); Sodium* 136 mmol/L (135-149)
[2023-07-13 20:03] LABS: Anion Gap 5 mEq/L (7-15); Blood Urea Nitrogen* 12 mg/dL (5-24); Carbon Dioxide* 27 mmol/L (20-32); Creatinine* 0.7 mg/dL (0.5-1.5); Est. Creatinine Clearance* 97.21; Estimated Glomerular Filt Rate 119 ml/min
[2023-07-13 20:04] LABS: Calcium* 8.3 mg/dL (8.4-10.6); Glucose* 91 mg/dL (60-115)
[2023-07-13 20:09] LABS: Potassium* 2.9 mmol/L (3.6-5.1)
[2023-07-13 20:14] LABS: Appearance Urine Clear (Clear); Bilirubin Urine Negative (Negative); Blood Urine Negative (Negative); Color Urine Yellow (Yellow); Glucose Urine Negative (Negative); Ketones Urine 1+ (Negative); Leukocyte Esterase Urine Trace (Negative); Nitrite Urine Negative (Negative); Protein Urine Negative (Negative); Specific Gravity Urine <= 1.005 (1.000-1.030); Urobilinogen Urine 0.2 (0.2-1.0); pH Urine 6.5 (5.0-8.5)
--- NOTE | 2023-07-13 20:15 | PC.NURSE ---
Pt did take her own Toradol 10mg orally and [place] 1 tablet orally.
[2023-07-13 20:18] LABS: C Reactive Protein* 16.8 mg/dL (0.5-1.0)
[2023-07-13 20:21] VITALS: BP 136/75; PULSE 95; RESP 18; TEMP 38.1; O2SAT 98
[2023-07-13 20:23] LABS: PCR FLU A Negative PCR FLU A (Negative); PCR FLU B Negative PCR FLU B (Negative); PCR RSV Negative PCR RSV (Negative); SARS PCR* Negative SARS-CoV-2 (Negative)
[2023-07-13] MEDS: POTASSIUM BICARB 25 MEQ EFFERVESCENT TAB PO (20:32)
[2023-07-13 20:37] LABS: Bacteria Urine Few; RBC Urine 0-2 (0-2); Squamous Epithelial Cell Urine Few (None-Few); WBC Urine 0-2 (0-5)
[2023-07-13 21:02] VITALS: BP 138/74; PULSE 80; RESP 18; TEMP 37.8; O2SAT 98
--- NOTE | 2023-07-13 21:03 | PC.NURSE ---
Pt resting, states she no longer has chills. and 8 month old daughter in room with pt. Discussing plan for admission/observation. Pt states she has her own breastpump as she is pumping and bottle feeding daughter. Note_ Pt had emergency appy 07/11, daughter has viral illness, fever and cough and was seen in ED yesterday also. Pt. comes in today with fever and to be evaluated herself.
[2023-07-13] MEDS: PIPERACILLIN/TAZOBACTAM 3.375 GM in 0.9 % SODIUM CHLORIDE Mini-bag 100 ML IVPB (21:26)
[2023-07-13 22:02] VITALS: BP 120/62; PULSE 87; RESP 18; TEMP 37.1; O2SAT 97; BMI 40.0
[2023-07-13] MEDS: POTASSIUM BICARB 25 MEQ EFFERVESCENT TAB 50 MEQ PO (22:49)
[2023-07-13 22:50] LABS: Magnesium* 2.1 mg/dL (1.5-2.6)
--- NOTE | 2023-07-13 23:24 | P.IMHP_ITS ---
Hospitalist- H&P: HPI History of Present Illness Date Seen: 07/13/23 Chief complaint: Post op; fever over 101.5 Narrative: Lilli Joseph is a 28 year old female who underwent uncomplicated laparoscopic appendectomy yesterday now presenting with fever. She was hospitalized for appendicitis early yesterday morning. She underwent a laparoscopic appendectomy later in the morning. This was uncomplicated and she was discharged to home. By last evening she had a fever over 101 F. she otherwise was feeling okay. She was advised come the emergency room due to the fever. She reports right lower quadrant abdominal pain and mild incisional discomfort as well. The pain is a little better than yesterday. She is not had nausea or vomiting. She thinks her appetite is less than usual but she has been able to eat some food. She has not had a bowel movement since surgery. She has been taking acetaminophen, Ketoralac, hydrocodone for pain. She was also discharged on Augmentin. Preoperatively there was a question of whether this was perforated appendicitis. Intraoperatively there was no obvious evidence of perforation. She has had no other symptoms of illness other than her fever. She reports some irritation to her throat which is possibly related to being intubated. She has not had cold symptoms, cough, chest pain, urinary problems. Her 8-month-old daughter came home from daycare yesterday with a fever. Her daughter was seen in the emergency department with the fever and no obvious focus of infection was identified. This was suspected to be a viral infection. Her daughter still has a little bit of fever today. Review of Systems Narrative: Prior to her appendicitis she has been feeling well recently. [facility] Medical History Severe preeclampsia ?O14.10 - Severe pre-eclampsia, unspecified trimester (ICD-10) Normal spontaneous vaginal delivery ?O80 - Encounter for full-term uncomplicated delivery (ICD-10) IBS (irritable bowel syndrome) ?K58.9 - Irritable bowel syndrome without diarrhea (ICD-10) Surgical History H/O tooth extraction ?K08.409 - Partial loss of teeth, unspecified cause, unspecified class (ICD-1 0) Stopover teeth extracted ?K08.409 - Partial loss of teeth, unspecified cause, unspecified class (ICD- 10) Family History Mother Diabetes Kidney disease ADHD PTSD (post-traumatic stress disorder) Anxiety Bipolar 1 disorder H/O gastric sleeve IBS (irritable bowel syndrome) Mammogram abnormal Abnormal Pap smear of cervix Father Asthma Brother No problems noted. 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 as [employer] tech Lives with: Mohamud Pets: 2 dogs Abuse: Denies past/present Special Diet: Denies eats organic and limits gluten Ok with a blood transfusion: yes Culture or faith beliefs: denies RISK FACTORS Exercise Times/wk: no, occ yoga and walking Depression/Anxiety: anxiety in past has 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, meds last in 2018, does go to therapy Seat Belt Use: Routinely Smoking: Denies past/present Alcohol/day: Denies while , 2-3 on occasion prior Caffeine: coffee one cup/daily, not currently Drug Use: Denies past/present Chicken Pox: vaccinated MRSA: Denies What is your current living situation?: I presently have a place to live Problems where you live: no known problems Problems where you live details: n/a In the past 12 months, utilities in danger of being shut off: declined to answer In past 12 months, lack of transportation kept you from medical appts, meetings, work, or getting things needed for daily living: no In the past 12 mos, have been you worried that your food would run out before you had money to buy more?: never true In the past 12 mos, the food you bought just didn't last and you didn't have money to buy more?: never true Smoking Status: Never smoker Do you use any of these nicotine containing products: None Second hand tobacco smoke exposure: No How often do you have a drink containing alcohol: monthly or less How often do you have six or more drinks on one occasion: Never AUDIT-C Alcohol total score: 1 Non-prescribed substance use: denies use Caffeine: Yes (occasionally) How often does anyone, including family, friends and others, physically hurt you : never How often does anyone, including family, friends and others, insult or talk down to you: never How often does anyone, including family, friends and others, threaten you with harm: never How often does anyone, including family, friends and others, scream or curse at you: never Little interest or pleasure in doing things: not at all Feeling down, depressed, or hopeless: not at all service: No Meds Home Medications and Allergies Home Medications Medication Instructions Recorded Confirmed Type prenat.vits,gurpreet,jit-ywqp-eauij 1 tab PO QDAY 03/19/22 02/19/23 History magnesium glycinate 100 mg tablet 200 mg PO QDAY 12/17/22 02/19/23 History vitamin B complex 1 tab PO QDAY 12/17/22 02/19/23 History Home Medication Comments: Following her appendectomy yesterday she has been treated with acetaminophen, hydrocodone, Ketoralac, Augmentin Allergies Allergy/AdvReac Type Severity Reaction Status Date / Time No Known Drug Allergies Allergy Verified 02/19/23 14:22 Exam Narrative: Exam Narrative: She is alert and appears in no distress. She gives her own history. Oropharynx is normal. Neck is supple without mass or adenopathy. Respirations are clear to auscultation. Cardiovascular: S1, S2, regular rate and rhythm. Abdomen: Bowel sounds are active. Abdomen as laparoscopic sites which are clean and dry. The 1 near her umbilicus has some erythema/bruising inferior to the incision, approximately 4 cm by 8 cm. This area is not tender and there is no evidence of a fluid collection. Other incisions have no sign of erythema. She has mild to moderate right lower quadrant tenderness consistent with her postoperative status. No peritonitis. Extremities without edema. Intact peripheral pulses. Good perfusion. Const: Vital Signs, click to edit/add: Vital Signs - 24 hr 07/13/23 18:52 07/13/23 19:41 07/13/23 19:41 Temperature 100.4 F H 101.5 F H Pulse Rate [Pulse Oximeter] 105 H Respiratory Rate 18 Blood Pressure [Le ft Arm] Blood Pressure [Ri ght Upper Arm] 148/79 H Pulse Oximetry 99 98 Oxygen Delivery Me thod Room Air 07/13/23 20:21 07/13/23 21:02 07/13/23 22:02 Temperature 100.5 F H 100.0 F H 98.7 F Pulse Rate [Pulse Oximeter] 95 80 87 Respiratory Rate 18 18 18 Blood Pressure [Le ft Arm] 120/62 Blood Pressure [Ri ght Upper Arm] 136/75 138/74 Pulse Oximetry 98 98 97 Oxygen Delivery Me thod Room Air Room Air Room Air 07/13/23 22:02 Temperature Pulse Rate [Pulse Oximeter] Respiratory Rate Blood Pressure [Le ft Arm] Blood Pressure [Ri ght Upper Arm] Pulse Oximetry 97 Oxygen Delivery Me thod Room Air Documenting provider has reviewed patient's vital signs: yes Hospitalist - H&P: Result Labs Labs: Short CBC 07/13/23 Range/Units 19:15 WBC 9.88 (4.50-11.00) K/uL Hgb 10.5 L (12.0-16.0) gm/dL Hct 32.4 L (33.0-51.0) % Plt Count 350 (140-440) K/uL BMP 07/13/23 19:15 Sodium 136 Potassium 2.9 L* Chloride 104 Carbon Dioxide 27 BUN 12 Creatinine 0.7 Glucose 91 Calcium 8.3 L Urine 07/13/23 Range/Units 19:41 Urine Color Yellow (Yellow) Urine Appearance Clear (Clear) Urine pH 6.5 (5.0-8.5) Ur Specific [place] <= 1.005 (1.000-1.030) Urine Protein Negative (Negative) Urine Glucose (UA) Negative (Negative) Assessment and Plan Assessment and plan (1) Postoperative fever: Problem comment: Postoperative fever of uncertain cause. Will treat as a infection related to her appendicitis. Zosyn. Could possibly also be a fever related to an infection shared with her infant daughter. Status: Acute (2) Status post laparoscopic appendectomy: Problem comment: Dr. Del Rosario to evaluate Status: Acute (3) Acute hypokalemia: Problem comment: Replace potassium and recheck Status: Acute (4) Lactating mother: Problem comment: Patient is currently discarding her breast milk Status: Acute Plan Admit for IV antibiotics to treat a possible abdominal infection. Consult surgery for ongoing evaluation management. Total Time Spent Total Time Spent: Total time spent is 60 minutes, 45 minutes in coordination of care and discussing with patient other providers ongoing evaluation management of postoperative fever
[2023-07-14] MEDS: PIPERACILLIN/TAZOBACTAM 3.375 GM in 0.9 % SODIUM CHLORIDE Mini-bag 100 ML IVPB ×4 (02:45→20:33)
[2023-07-14] MEDS: HYDROCODONE-ACETAMIN 5-325 MG 1 TAB PO (02:50)
[2023-07-14 03:00] VITALS: BP 129/74; PULSE 82; RESP 18; TEMP 36.8; O2SAT 100
[2023-07-14] MEDS: CALCIUM CARBONATE 500 MG CHEW PO (05:16)
[2023-07-14] MEDS: 0.9 % SODIUM CHLORIDE 250 ml IV (05:30)
[2023-07-14 06:18] LABS: Basophils Absolute Auto 0.04 K/uL (0.00-0.30); Basophils Percent Auto 0.5 % (0.0-3.0); Eosinophils Absolute Auto 0.12 K/uL (0.00-0.50); Eosinophils Percent Auto 1.4 % (0.0-7.0); Hematocrit 29.6 % (33.0-51.0); Hemoglobin* 9.4 gm/dL (12.0-16.0); Immature Granulocytes Abs Auto 0.03 K/uL (0.00-0.30); Immature Granulocytes Pct Auto 0.4 %; Lymphocytes Percent Auto 20.2 % (20-44); Mean Corpuscular HGB Conc 32 gm/dL (32-36); Mean Corpuscular Hemoglobin 27 pg (26-34); Mean Corpuscular Volume 86 fL (80-100); Monocytes Percent Auto 5.7 % (0.0-11.0); Neutrophils Absolute Auto 6.05 K/uL (1.7-7.0); Neutrophils Percent Auto 71.8 % (42.0-72.0); Platelet Count* 316 K/uL (140-440); Red Blood Count 3.43 m/uL (4.00-5.20); White Blood Count* 8.42 K/uL (4.50-11.00)
[2023-07-14 06:19] LABS: Slide Review Reflex No
[2023-07-14 06:36] LABS: Chloride* 107 mmol/L (96-114); Potassium* 3.5 mmol/L (3.6-5.1); Sodium* 138 mmol/L (135-149)
[2023-07-14 06:38] LABS: Creatinine* 0.6 mg/dL (0.5-1.5); Est. Creatinine Clearance* 113.41; Estimated Glomerular Filt Rate 124 ml/min
[2023-07-14 06:39] LABS: Anion Gap 4 mEq/L (7-15); Blood Urea Nitrogen* 10 mg/dL (5-24); Carbon Dioxide* 27 mmol/L (20-32); Glucose* 86 mg/dL (60-115)
[2023-07-14 06:53] LABS: C Reactive Protein* 14.8 mg/dL (0.5-1.0)
[2023-07-14 07:00] VITALS: BP 128/80; PULSE 88; RESP 18; TEMP 36.3; O2SAT 100
--- NOTE | 2023-07-14 08:26 | PC.NURSE ---
Patient arrived on med/surg at last evening at 2154 accompanied by her Mohamud. Pt pleasant, alert and oriented. Independent with transfers and ambulation. Afebrile. Given PRN [place] for abdominal pain and PRN Tums for upset stomach. ? remained at bedside during night. ?
[2023-07-14] MEDS: POTASSIUM BICARB 25 MEQ EFFERVESCENT TAB PO (09:29)
[2023-07-14] MEDS: SODIUM CHLORIDE 0.9 % (FLUSH) 10 ML SYRINGE 5 ML IVF ×2 (09:35→20:34)
[2023-07-14 11:00] VITALS: BP 131/82; PULSE 78; RESP 18; TEMP 36.7; O2SAT 98
--- NOTE | 2023-07-14 12:36 | P.GSPN_ITS ---
Subjective Subjective Date Seen: 07/14/23 Interval history: Lilli is feeling much better today she has not required pain medication since 3:00 a.m.. She is eating without nausea. She has had 2 bowel movements since surgery. She has been afebrile today and overnight had 1 low-grade fever. Occasionally will have stinging pain in her right lower quadrant. Otherwise she feels that her pain is much improved today. Exam Narrative: Exam Narrative: General: No acute distress CV: Regular rate and rhythm Respiratory: Clear to auscultation bilateral Abdomen: Appropriately tender for the postoperative state. Incisions are all clean and dry. Below her umbilical incision she does have some slight erythema. This does carina. It is not extending outside of the marked line from last evening. Const: Vital Signs, click to edit/add: Vital Signs - 24 hr 07/13/23 18:52 07/13/23 19:41 07/13/23 19:41 Temperature 100.4 F H 101.5 F H Pulse Rate [Pulse Oximeter] 105 H Respiratory Rate 18 Blood Pressure [Le ft Arm] Blood Pressure [Ri ght Upper Arm] 148/79 H Pulse Oximetry 99 98 Oxygen Delivery Me thod Room Air 07/13/23 20:21 07/13/23 21:02 07/13/23 22:02 Temperature 100.5 F H 100.0 F H 98.7 F Pulse Rate [Pulse Oximeter] 95 80 87 Respiratory Rate 18 18 18 Blood Pressure [Le ft Arm] 120/62 Blood Pressure [Ri ght Upper Arm] 136/75 138/74 Pulse Oximetry 98 98 97 Oxygen Delivery Me thod Room Air Room Air Room Air 07/13/23 22:02 07/14/23 03:00 07/14/23 07:00 Temperature 98.2 F 97.3 F L Pulse Rate [Pulse Oximeter] 82 88 Respiratory Rate 18 18 Blood Pressure [Le ft Arm] 129/74 128/80 Blood Pressure [Ri ght Upper Arm] Pulse Oximetry 97 100 100 Oxygen Delivery Me thod Room Air Room Air Room Air 07/14/23 07:00 07/14/23 11:00 Temperature 98.1 F Pulse Rate [Pulse Oximeter] 88 78 Respiratory Rate 18 18 Blood Pressure [Le ft Arm] 131/82 Blood Pressure [Ri ght Upper Arm] Pulse Oximetry 98 Oxygen Delivery Me thod Room Air Labs/Imaging Labs Labs: Hemoglobin continues to trend down, 9.4 from 10 White blood cell count remains normal. CRP down slightly to 14.8 Potassium is up to 3.5 after placement. Progress Note:A&P Assessment and plan (1) Acute hypokalemia: Status: Acute (2) Status post laparoscopic appendectomy: Status: Acute (3) Postoperative fever: Status: Acute (4) Anemia due to blood loss, acute: Status: Acute Plan The patient is a 28-year-old female who is postop day 2 from laparoscopic appendectomy for acute appendicitis. Appendix was markedly inflamed, however there was no free perforation. She was discharged home on postop day 0, however developed a fever to 101 on postop day 1. She was also found to be markedly hyp okalemic with a potassium of 2.9. Hemoglobin had dropped approximately 2 g since surgery. -continue IV antibiotics inpatient until patient is afebrile for 24 hours. -avoid Lovenox and NSAIDs for hemoglobin drop. Possible acute blood loss from surgery. Patient appears asymptomatic at this time. It is possible that if she has a small hematoma at the surgical site that this could have caused her fever. Recheck hemoglobin in the morning -recheck CRP and white count in the morning. -potassium replaced today, will recheck tomorrow.
[2023-07-14] MEDS: ACETAMINOPHEN 325 MG TABLET 650 MG PO ×3 (13:01→22:18)
[2023-07-14 15:00] VITALS: BP 128/77; PULSE 78; PULSE 85; RESP 16; TEMP 37.1; O2SAT 98
--- NOTE | 2023-07-14 19:23 | PC.NURSE ---
End of Shift: Patient pleasant and cooperative, A&O, VSS, afebrile. Dressings on abdomen intact with scant, dry bloody drainage. Redness on abdomen below navel, remained the same size this shift. Pain managed with PRN medication, see MAR, and ice packs. Tolerating regular diet. Independent.
[2023-07-14 20:17] VITALS: BP 145/93; PULSE 87; RESP 18; TEMP 38.2; O2SAT 99
[2023-07-14 22:16] VITALS: BP 140/82; PULSE 77; RESP 16; TEMP 37.5; O2SAT 98
[2023-07-15] MEDS: ACETAMINOPHEN 325 MG TABLET 650 MG PO ×2 (02:37→07:51)
[2023-07-15 03:00] VITALS: BP 144/91; PULSE 65; RESP 18; TEMP 36.2
[2023-07-15] MEDS: PIPERACILLIN/TAZOBACTAM 3.375 GM in 0.9 % SODIUM CHLORIDE Mini-bag 100 ML IVPB ×2 (03:12→08:54)
[2023-07-15 06:12] LABS: Basophils Absolute Auto 0.06 K/uL (0.00-0.30); Basophils Percent Auto 0.9 % (0.0-3.0); Eosinophils Absolute Auto 0.16 K/uL (0.00-0.50); Eosinophils Percent Auto 2.3 % (0.0-7.0); Hematocrit 30.8 % (33.0-51.0); Hemoglobin* 9.8 gm/dL (12.0-16.0); Immature Granulocytes Abs Auto 0.05 K/uL (0.00-0.30); Immature Granulocytes Pct Auto 0.7 %; Lymphocytes Absolute Auto 1.47 K/uL (0.90-2.90); Lymphocytes Percent Auto 21.2 % (20-44); Mean Corpuscular HGB Conc 32 gm/dL (32-36); Mean Corpuscular Hemoglobin 27 pg (26-34); Mean Corpuscular Volume 86 fL (80-100); Monocytes Percent Auto 3.5 % (0.0-11.0); Neutrophils Absolute Auto 4.96 K/uL (1.7-7.0); Neutrophils Percent Auto 71.4 % (42.0-72.0); Platelet Count* 337 K/uL (140-440); Red Blood Count 3.58 m/uL (4.00-5.20); Slide Review Reflex No; White Blood Count* 6.94 K/uL (4.50-11.00)
[2023-07-15 06:30] LABS: Chloride* 111 mmol/L (96-114); Potassium* 3.6 mmol/L (3.6-5.1); Sodium* 140 mmol/L (135-149)
[2023-07-15 06:33] LABS: Anion Gap 2 mEq/L (7-15); Blood Urea Nitrogen* 10 mg/dL (5-24); Carbon Dioxide* 27 mmol/L (20-32); Creatinine* 0.6 mg/dL (0.5-1.5); Est. Creatinine Clearance* 113.41; Estimated Glomerular Filt Rate 124 ml/min
[2023-07-15 06:34] LABS: Calcium* 8.4 mg/dL (8.4-10.6); Glucose* 105 mg/dL (60-115)
[2023-07-15 06:36] LABS: C Reactive Protein* 7.6 mg/dL (0.5-1.0)
--- NOTE | 2023-07-15 06:37 | PC.NURSE ---
End of shift [id number]: Patient has remained afebrile throughout this shift. Pain well managed with tylenol. Ice packs applied to abdomen. Independent in room.
[2023-07-15 07:32] VITALS: BP 139/83; PULSE 80; RESP 18; TEMP 36.5; O2SAT 98
[2023-07-15] MEDS: 0.9 % SODIUM CHLORIDE 250 ml IV (07:51)
[2023-07-15] MEDS: SODIUM CHLORIDE 0.9 % (FLUSH) 10 ML SYRINGE 5 ML IVF (08:54)
--- NOTE | 2023-07-15 09:06 | PM.DS1 ---
DS: Providers Provider Date Seen: 07/15/23 Date of admission: 07/13/23 21:47 Primary care physician: Not a Local Provider Admitting Clinician: Rodríguez Ballard MD Attending Physician on discharge: Gloria Del Rosario MD, FACS Date of Discharge: 07/15/23 DS: Diagnosis Discharge Diagnosis (1) Anemia due to blood loss, acute: Status: Acute (2) Status post laparoscopic appendectomy: Status: Acute Problem details: Admitted with postop fever And hypokalemia. DS: Summary Hospital Course Hospital Course: The patient is a 28-year-old female who underwent laparoscopic appendectomy on 07/12/2023. The appendix was markedly inflamed, however there was no gross intra-abdominal spillage of purulence. She was discharged home on oral antibiotics however developed a fever on postop day 1. She was found to be also hypokalemic. she was admitted to the hospital for IV antibiotics and potassium replacement. Hemoglobin was followed and was stable. On postop day 3 she had been afebrile for 24 hours. She was deemed safe for discharge home on oral antibiotics. She was eating without nausea, moving her bowels and had good pain control on only Tylenol. Her blood cultures from admission were negative. Time Spent with Patient Time attestation: Total time spent providing and/or coordinating discharge services: Exam Narrative: Exam Narrative: General: No acute distress CV: Regular rate and rhythm Respiratory: Breathing nonlabored on room air Abdomen: Incisions are clean and dry. Very faint redness /ecchymosis below the umbilical incision. This is stable to improved. Const: Vital Signs, click to edit/add: Vital Signs - 24 hr 07/14/23 11:00 07/14/23 15:00 07/14/23 15:00 Temperature 98.1 F 98.7 F Pulse Rate [Pulse Oximeter] 78 78 85 Respiratory Rate 18 16 16 Blood Pressure [Le ft Arm] 131/82 128/77 Pulse Oximetry 98 98 Oxygen Delivery Me thod Room Air Room Air 07/14/23 20:17 07/14/23 22:16 07/15/23 03:00 Temperature 100.7 F H 99.5 F 97.2 F L Pulse Rate [Pulse Oximeter] 87 77 65 Respiratory Rate 18 16 18 Blood Pressure [Le ft Arm] 145/93 H 140/82 H 144/91 H Pulse Oximetry 99 98 Oxygen Delivery Me thod Room Air Room Air 07/15/23 07:32 Temperature 97.7 F Pulse Rate [Pulse Oximeter] 80 Respiratory Rate 18 Blood Pressure [Le ft Arm] 139/83 Pulse Oximetry 98 Oxygen Delivery Me thod Room Air DS: Data Data Completed and Pending Completed studies during hospitalization: Procedures Delivery of Products of Conception, External Approach (11/02/22) Introduction of Hormone into Female Reproductive, Via Natural or Artificial Opening (11/02/22) Labs on day of discharge: Labs from last 24 hours 07/15/23 05:56 WBC 6.94 RBC 3.58 L Hgb 9.8 L Hct 30.8 L MCV 86 MCH 27 MCHC 32 RDW Coeff of You 13.0 Plt Count 337 Neut % (Auto) 71.4 Lymph % (Auto) 21.2 [place] % (Auto) 3.5 Eos % (Auto) 2.3 Baso % (Auto) 0.9 Neut # (Auto) 4.96 Lymph # (Auto) 1.47 [place] # (Auto) 0.20 Eos # (Auto) 0.16 Baso # (Auto) 0.06 Abs Immat Gran (auto) 0.05 Imm/Tot Granulo (auto) 0.7 Sodium 140 Potassium 3.6 Chloride 111 Carbon Dioxide 27 Anion Gap 2 L BUN 10 Creatinine 0.6 Estimated Creat Clear 113.41 Estimated GFR 124 Glucose 105 Calcium 8.4 C-Reactive Protein 7.6 H Preliminary micro results at discharge 07/13/23 21:16 Blood Culture - Preliminary Blood NO GROWTH AFTER 24 HOURS 07/13/23 21:05 Blood Culture - Preliminary Blood NO GROWTH AFTER 24 HOURS 07/13/23 19:41 Urine Culture - Preliminary Urine,Clean Catch < 10,000 COL/ML MIXED GRAM POSITIVE JIN ISOLATED NO FURTHER WORKUP Discharge Plan Discharge Disposition: Home, Self-Care Date of Admission: 07/13/23 21:47 Primary Care Provider: Provider,Not a Local Condition: Improved Anticipated Discharge Date/Time: 07/15/23 11:00 Discharge Medications: New amoxicillin-pot clavulanate 875-125 mg tablet 1 tab PO BID Qty: 4 0RF Rx Instructions: take once you have completed your initial prescription of antibiotics for a total of 7 days of oral antibiotics Continued vitamin B complex Tablet 1 tab PO DAILY magnesium glycinate 100 mg tablet 200 mg PO QDAY ketorolac 10 mg tablet 10 mg PO TID PRN (Reason: pain) 5 Days Qty: 15 0RF amoxicillin-pot clavulanate 875-125 mg tablet 1 tab PO BID Qty: 10 0RF hydrocodone-acetaminophen 5-325 mg Tablet 1 - 2 tab PO Q6H PRN (Reason: Pain) Qty: 10 0RF Prenatabs FA 29-1 mg tablet 1 tab PO DAILY Discharge Orders: Discharge Order (Routine); Ordered 07/15/23 Ordered By: Gloria Del Rosario Patient Education: Laparoscopic Appendectomy (DC) Additional Instructions: Please see discharge instructions from surgery discharge. Activity Level: No strenuous activity Activity Detail: no lifting more than 20 pounds for 2 weeks from surgery Discharge Diet: Regular Follow Up Appointments: Gloria Del Rosario MD [Staff Physician] - Provider,Not a Local [Primary Care Provider] - Forms: [facility]
--- NOTE | 2023-07-15 10:27 | PC.NURSE ---
Pt alert and oriented. Pt had no complaints of pain but generalized soreness. Pt up independently in room. Pt has three lap sites- dry and intact. Pt has a circled area of redness on abdomen that has receded and is pink and warm; Pt instructed to keep a close eye on the area. Pt?s IV removed; catheter intact. Pt discharged home with .?
== END 2023-07-15 10:34 | disposition home or self-care (01) ==
LOC: ED 20:48 → MEDSURG 21:48
PROVIDERS: Surgery; Admitting Provider Family Medicine; Emergency Provider Family Medicine; Visit Provider Family Medicine
DX: R50.82 Postprocedural fever (principal); Z90.49 Acquired absence of other specified parts of digestive tract; E87.6 Hypokalemia; Z39.1 Encounter for care and examination of lactating mother; D62 Acute posthemorrhagic anemia; R10.31 Right lower quadrant pain; R00.0 Tachycardia, unspecified; F43.10 Post-traumatic stress disorder, unspecified; K08.409 Partial loss of teeth, unspecified cause, unspecified class; Z87.891 Personal history of nicotine dependence
CPT/HCPCS: 36415; 71045; 80048; 81001; 83605; 83690; 83735; 85025; 86140; 87040; 87086; 87631; 94761; 96361; 96365; 96366; 96375; 99284; 99285; A9270; G0378; J2543; J7030; J7050

== ENCOUNTER 2023-07-23 09:35 | Outpatient (CLI) | payer OTHER, SELFPAY | END 2023-07-23 09:36 | disposition home or self-care (01) | LOC: NFLDREF 09:36 | PROVIDERS: Visit Provider Surgery | DX: E87.6 Hypokalemia (principal) | CPT/HCPCS: 80048 ==

== ENCOUNTER 2023-12-03 15:36 | Outpatient (CLI) | payer OTHER, SELFPAY | END 2023-12-03 15:37 | disposition home or self-care (01) | LOC: NFLDREF 15:38 | PROVIDERS: Visit Provider Advanced Practice Midwife | DX: Z01.419 Encounter for gynecological examination (general) (routine) without abnormal findings (principal); Z13.6 Encounter for screening for cardiovascular disorders; Z13.0 Encounter for screening for diseases of the blood and blood-forming organs and certain disorders involving the immune mechanism | CPT/HCPCS: 80061 ==

== ENCOUNTER 2024-06-17 12:45 | Outpatient (CLI) | payer OTHER, SELFPAY ==
--- NOTE | 2024-06-17 13:00 | CRLHL7_ITS ---
For Patients: As a result of the Cures Act, medical imaging exams and procedure reports are released immediately into your electronic medical record. You may view this report before your referring provider. If you have questions, please contact your health care provider. OB ULTRASOUND FIRST TRIMESTER TRANSVAGINAL INDICATION: Dating and viability. TECHNIQUE: Real time amin scale imaging of the fetus was performed. Transvaginal. LMP: 04/17/2024. [place] by LMP: 01/22/2025. GA: 8 w, 5 d. Previous US: No. CRL: 2.1 cm. 8 w 5 d. [place]: 01/22/2025. FHR: 163 BPM. Gestational sac: 3.2 cm. Appears within normal limits. Yolk sac: 3.8 mm. Appears within normal limits. Right ovary: Within normal limits. 3.6 x 1.9 x 2.2 cm. CL. Left ovary: Within normal limits. 2.4 x 1.7 x 1.7 cm. IMPRESSION: 1. Single living intrauterine measuring 8 weeks 5 days with sonographic due date 01/22/2025. 2. Subchorionic hemorrhages are present measuring 8 x 7 x 11 mm and 11 x 5 x 13 mm. Regan Medrano M.D. Diagnostic Radiologist [email or web address] SP/Dictated by: Regan Medrano MD @ 06/18/2024 8:11:00 PM (Electronically Signed)
== END 2024-06-17 12:46 | disposition home or self-care (01) ==
LOC: US 12:46
PROVIDERS: Visit Provider Advanced Practice Midwife
DX: Z34.91 Encounter for supervision of normal pregnancy, unspecified, first trimester (principal); O20.9 Hemorrhage in early pregnancy, unspecified; Z3A.08 8 weeks gestation of pregnancy
CPT/HCPCS: 76817; 82565; 82570; 83021; 84156; 84443; 84450; 84460; 84520; 86592; 86703; 86704; 86706; 86762; 86787; 86803; 86850; 87086; 87340

== ENCOUNTER 2024-07-06 13:00 | Outpatient (CLI) | payer OTHER, SELFPAY | END 2024-07-06 13:01 | disposition home or self-care (01) | LOC: NFLDREF 07-09 23:20 | PROVIDERS: Visit Provider Advanced Practice Midwife | DX: Z34.91 Encounter for supervision of normal pregnancy, unspecified, first trimester (principal); Z87.59 Personal history of other complications of pregnancy, childbirth and the puerperium | CPT/HCPCS: 82570; 84156 ==

== ENCOUNTER 2024-09-03 12:01 | Outpatient (CLI) | payer OTHER, SELFPAY ==
--- NOTE | 2024-09-03 12:15 | CRLHL7_ITS ---
For Patients: As a result of the 21st Century Cures Act, medical imaging exams and procedure reports are released immediately into your electronic medical record. You may view this report before your referring provider. If you have questions, please contact your health care provider. OB ULTRASOUND ANATOMY SURVEY LMP: 04/17/2024. [place] by LMP: 01/22/2025. GA: 19 w, 6 d. INDICATION: anatomy scan. TECHNIQUE: Real time amin scale imaging of the fetus was performed. Evaluate anatomy. Transabdominal imaging performed. position: Vertex, oblique, longitudinal, transverse, breech, lexy breech, multiple position. Head to maternal right and left. Cervix: Visualized. Technique: Transabdominal. Length of closed cervix: 5.5 cm. Placenta/cord: Posterior, right wall. Technique: Transabdominal. Placenta tip to internal OS: 5.1 cm. Umbilical Cord: 3-vessel cord. Placenta insertion: Central. Amniotic Fluid: 3.6 cm SDP (greater than/equal to: 2- less than 8 cm). SURVEY: Observed Structures. Calvarium/Spine: Cerebellum: 1.9 cm, 19 w 4 d. Cisterna Magna: 3.3 mm. Nuchal Fold: 4.6 mm. Lateral Ventricle: 7.7 mm. CSP: Yes. Midline Falx: Yes. Choroid Plexus: Yes. Spine: Yes. Abdomen: Stomach: Yes. Abd Cord Insertion: Yes. Urinary Bladder: Yes. Kidneys: Yes. Diaphragm: Yes. Face: Nose/lips: Yes. See comment. Orbital view: Yes. Profile: Yes. Limbs: Upper Extremities: Yes. Lower Extremities: Yes. Hands: Yes. Feet: Yes. Vascular: 4-Chamber Heart: Yes. LVOT: Yes. RVOT: Yes. 3VV: Yes. See comment. 3VTV: Yes. See comment. BPD: 4.6 cm. 19 w, 6 d, 52 percent. HC: 17.6 cm. 20 w, 0 d, 52 percent. AC: 15.10 cm. 20 w, 2 d, 61 percent. FL: 3.0 cm. 19 w, 1 d, 20 percent. FL/AC ratio: 19.74 percent. HC/AC ratio: 1.16. heart rate: 155 bpm. COMMENT: Extremely active fetus. Difficult exam due to body habitus. IMPRESSION: 1. Concordance of clinical and sonographic dating. 2. Incomplete visualization of the three-vessel view, three-vessel trachea view, nose and lips. Remainder of the anatomic survey is normal. Short-term follow-up recommended. Regan Medrano M.D. Diagnostic Radiologist [email or web address] SP/Dictated by: Regan Medrano MD @ 09/07/2024 7:09:00 PM (Electronically Signed)
== END 2024-09-03 12:02 | disposition home or self-care (01) ==
LOC: US 12:02
PROVIDERS: Visit Provider Advanced Practice Midwife
DX: Z34.92 Encounter for supervision of normal pregnancy, unspecified, second trimester (principal); Z3A.19 19 weeks gestation of pregnancy
CPT/HCPCS: 76805; 87086

== ENCOUNTER 2024-09-18 12:11 | Outpatient (CLI) | payer OTHER, SELFPAY ==
--- NOTE | 2024-09-18 12:15 | CRLHL7_ITS ---
For Patients: As a result of the Century Cures Act, medical imaging exams and procedure reports are released immediately into your electronic medical record. You may view this report before your referring provider. If you have questions, please contact your health care provider. OB ULTRASOUND FOLLOW-UP/LIMITED, 09/18/2024 CLINICAL HISTORY: Follow-up missing views, nose/lips, 3VV, 3VT. COMPARISON: 09/03/2024. TECHNIQUE: Real time amin scale imaging of the fetus was performed. Transabdominal imaging performed. FINDINGS: [place] by LMP: 01/22/2025. GA: 22 weeks 0 days. Gestation: Single. Cervix: Not visualized. Positioning: Vertex. Amniotic Fluid: 4.3 cm SDP. Placenta: Technique: TA. Placenta Position: Posterior. Dopplers: Heart Rate: 154 bpm. IMPRESSION: Nose, lips, three vessel view, three vessel trachea view and profile appear normal. Examination is difficult due to maternal body habitus. Regan Medrano M.D. Diagnostic Radiologist [email or web address] Transcribed: 4:46 pm DW/Dictated by: Regan Medrano MD @ 09/18/2024 4:19:00 PM (Electronically Signed)
== END 2024-09-18 12:12 | disposition home or self-care (01) ==
LOC: US 12:11
PROVIDERS: Visit Provider Advanced Practice Midwife
DX: Z36.2 Encounter for other antenatal screening follow-up (principal); Z3A.22 22 weeks gestation of pregnancy
CPT/HCPCS: 76816

== ENCOUNTER 2024-11-06 09:42 | Outpatient (CLI) | payer OTHER, SELFPAY | END 2024-11-06 09:43 | disposition home or self-care (01) | LOC: NFLDREF 11-11 11:52 | PROVIDERS: Visit Provider Advanced Practice Midwife | DX: Z34.93 Encounter for supervision of normal pregnancy, unspecified, third trimester (principal); Z3A.29 29 weeks gestation of pregnancy | CPT/HCPCS: 82728; 86592 ==

== ENCOUNTER 2024-12-14 18:55 | Outpatient (CLI) | payer OTHER, SELFPAY ==
[2024-12-14] VITALS (11 sets, daily range): BP systolic 113–133; BP diastolic 57–71; PULSE 78–94; O2SAT 98–99
--- NOTE | 2024-12-14 22:02 | PC.OBNST ---
NST Note NST Note Start: 12/14/24 19:44 Freq: ONCE Status: Active Protocol: Document 12/14/24 22:01 AML (Rec: 12/14/24 22:02 AML Desktop) NST Note 2 Para (# of births) 1 EDC 01/22/25 Gestational Age In 34 Weeks & 3 Days Weeks & Days Patient Presented Other with Complaint(s) of Other Complaints Patient reports elevated BPs at home. She also had c/o dizziness and foggy brain Reactive Yes Appropriate for Yes Gestational Age RN Gertrudis Pro RN Date 12/14/24 Reactive Yes Appropriate for Yes Gestational Age PAMELA Ayala CNM Date 12/14/24 OB NST charge Yes Complete NST Note Yes via Write Note The provider's electronic signature indicates the NST is reactive/appropriate for gestational age. *Note to provider: If an addendum is required, open the patient's chart and click on the note under the Nurse/Allied Health tab.
== END 2024-12-14 21:55 | disposition home or self-care (01) ==
LOC: OB OUT 18:55 → OB 18:56
PROVIDERS: Visit Provider Advanced Practice Midwife
DX: O26.893 Other specified pregnancy related conditions, third trimester (principal); R03.0 Elevated blood-pressure reading, without diagnosis of hypertension; R42 Dizziness and giddiness; Z3A.34 34 weeks gestation of pregnancy
CPT/HCPCS: 59025; G0463

== ENCOUNTER 2024-12-25 09:39 | Outpatient (CLI) | payer OTHER, SELFPAY ==
[2024-12-26 13:05] LABS: Strep B DNA Probe POSITIVE (Negative)
[2024-12-26 13:36] LABS: Strep B Susceptibility Needed? No
== END 2024-12-25 09:40 | disposition home or self-care (01) ==
LOC: NFLDREF 09:40
PROVIDERS: Visit Provider Advanced Practice Midwife
DX: Z34.93 Encounter for supervision of normal pregnancy, unspecified, third trimester (principal)
CPT/HCPCS: 87081; 87653

== ENCOUNTER 2024-12-30 07:30 | Outpatient (RCR) | payer OTHER, SELFPAY | END 2025-02-17 11:32 | disposition home or self-care (01) | PROVIDERS: Visit Provider Advanced Practice Midwife | DX: R32 Unspecified urinary incontinence (principal); N81.89 Other female genital prolapse; Z34.90 Encounter for supervision of normal pregnancy, unspecified, unspecified trimester; Z51.89 Encounter for other specified aftercare | CPT/HCPCS: 97110; 97112; 97140; 97161; 97535 ==

== ENCOUNTER 2025-01-19 11:03 | Inpatient (IN) | payer OTHER, SELFPAY ==
[2025-01-19] VITALS (37 sets, daily range): BP systolic 110–141; BP diastolic 58–79; PULSE 74–97; RESP 16–20; TEMP 36.8–37; O2SAT 83–100; BMI 42.5
[2025-01-19 13:07] LABS: Hematocrit* 40.9 % (33.0-51.0); Hemoglobin* 13.0 gm/dL (12.0-16.0); Immature Granulocytes Abs Auto 0.04 K/uL (0.00-0.30); Immature Granulocytes Pct Auto 0.4 %; Lymphocytes Absolute Auto 2.41 K/uL (0.90-2.90); Mean Corpuscular HGB Conc 32 gm/dL (32-36); Mean Corpuscular Hemoglobin 28 pg (26-34); Mean Corpuscular Volume 87 fL (80-100); RDW Coefficient of Variation % 18.0 % (11.5-15.5); Red Blood Count* 4.68 m/uL (4.00-5.20); White Blood Count* 10.89 K/uL (4.50-11.00)
[2025-01-19 13:11] LABS: Slide Review Reflex No
--- NOTE | 2025-01-19 13:55 | P.LDBA_ITS ---
Subjective History of Present Illness Time Seen by Provider: 13:00 Date Seen: 01/19/25 Narrative: Patient is being admitted to Labor and Delivery for induction of labor for elevated BMI and with history of pre-eclampsia she is hoping to avoid that this time. She is a 29 year old at 39 weeks 4 days gestation. Her full history and physical was dictated by Yanni Arce CNM on 01/01/25. Lilli is here with her , Mohamud. She started aleksandr over night for a few hours and then it petered away and contractions picked back up again this morning, about every 8 minutes she thought. She has good movement and no leaking of fluid but does note some bloody show on the toilet paper when wiping. She is planning on unmedicated and hoping to keep labor as natural as possible and would stongly like to avoid Pitocin. Lilli is GBS positive but is declining intrapartum antibiotics and signed the declination 01/01. She was induced with in her previous for pre-eclampsia and just needed Cervidil. She says that went smoothly and hopes for a similar experience, except maybe adding in a waterbirth this time. They are expecting a baby boy. 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 VERONICA Valencia Specific Issues/Plans Mohamud. Daughter Nick. It is a boy! Severe needle phobia, may desire saline in lock in labor due to this OB H&P completed 01/01 by BERTHA Scott Considering elective IOL at 39 vs 40 weeks # Prepregnancy BMI 39.5 Weekly testing starting at 37 weeks: declines Consider growth US at 32 weeks: Declines Delivery recommended: elective delivery considered at >39 0/7 weeks? # GBS +. Declines treatment, declination form signed 01/01 # PTSD/Anxiety Brother by homicide prior to 1st Was on medication in past, not since 2018; currently in therapy # Varicella non-immune Recommend vaccine pp # Hx of pre-eclampsia, SF Readmitted for SF on magnesium Recommend baby ASA Baseline labs: WNL, p/c 0.24. 24 hour urine ordered to confirm. 24hr urine normal. BP elevated at 24wks with anxiety of potential blood draw. Will send 1-2 weeks of home BPs. 11/06: BP's 120/60-70's mostly, a few 130/80's Considering elective IOL due to hx with needle phobia Imaging 1st trimester (06/17/24): IMPRESSION: 1. Single living intrauterine measuring 8 weeks 5 days with sonographic due date 01/22/2025. 2. Subchorionic hemorrhages are present measuring 8 x 7 x 11 mm and 11 x 5 x 13 mm. Anatomy scan (09/03/2024): IMPRESSION: 1. Concordance of clinical and sonographic dating. 2. Incomplete visualization of the three-vessel view, three-vessel trachea view, nose and lips. Remainder of the anatomic survey is normal. Short- term follow-up recommended. Follow-up US (09/18/2024): IMPRESSION: Nose, lips, three vessel view, three vessel trachea view and profile appear normal. Examination is difficult due to maternal body habitus. COVID: declined Flu: declined Hep b non-immune, vaccinated as a child and not high risk TDAP:Declines RSV: declined OB - Problem Based A/P Additional Plan (1) SROM (spontaneous rupture of membranes): Status: Acute (2) Encounter for induction of labor: Status: Acute (3) Severe needle phobia: Status: Acute (4) Anxiety: Status: Acute (5) PTSD (post-traumatic stress disorder): Status: Acute (6) Obesity, Class II, BMI 35-39.9: Status: Acute (7) History of pre-eclampsia: Status: Acute Plan 29 year old IOL for BMI History of pre-eclampsia and needle phobia- IV placed with ultrasound to have in case we need it and to potentially avoid placing during active labor. Monitor blood pressures per protocol. Category 1 monitoring strip GBS positive Consented to cervical exam: /-3. Educated on marques score and not necessarily need for cervical ripening but is still an option. Discussed options for induction including cervical ripening with cervadil, cytotek, and balloon. Pitocin. AROM. Or a membrane sweep and using the breast pump. Or even going home for expectant management as she may be in early labor. Lilli would strongly like to avoid pitocin. We talked about breaking her water as not being our favorite option since she is planning to decline antibiotics and that would potentially increase risk of infection and length of time ruptured. She is hoping to keep things as natural as possible and likes the idea of a membrane sweep and using the breast pump. Will plan for that with expectant managment and reassess in few hours unless she changes her mind or we have a baby. During membrane sweep bag of cole broke. Clear fluid. Lilli is considering antibiotics for GBS but not at this time, will reassess if labor seems to stall. Continue with plan of pumping on for 10 minutes every hour. Do labor curcuit to facilitate best position. Candidate for analgesia of choice. Planning unmedicated, waterbirth. Anticipate . Delivery/Labor/Induction Plan Plan: expectant management OB Result Labs Blood Type: A (+) positive Rubella: immune RPR/VDLR: nonreactive GBS Status: positive HBsAG: negative OB Exam Physical Exam Vital signs: Temp Pulse Resp BP Pulse Ox 98.2 F 83 20 132/60 100 01/19/25 13:26 01/19/25 13:26 01/19/25 13:26 01/19/25 13:26 01/19/25 13:53 Narrative: Objective: Constitutional: Alert and oriented x3, coping well Vital signs stable, see nurse documentation Abdomen: gravid, contractions palpate mild and soft between Cervix: 3 cm/60%/-3 station/vertex by Leopolds and bedside ultrasound NST: 130 bpm/ moderate variability/ accelerations present /no decelerations/ irregular contractions Detailed Labor and Delivery Exam Patient Gravid: yes Dilation (cm): 3 Effacement (%): 60 Cervix position: mid Consistency: soft Cervical ripeness score: 7 Contraction Frequency: 8-10 Tachysystole: No Contraction intensity: Mild Fetus (Single) Station: -3 Amniotic Membrane Status: SROM (with membrane sweep at 1300) Amniotic Membrane Fluid Description: Clear Heart Rate Baseline: 130 Monitor Accelerations: Present Monitor Decelerations: None Swing Tender Variability: Moderate (6-25)
--- NOTE | 2025-01-19 17:15 | PM.OBPNL ---
Subjective Time Seen by Provider: 16:45 Date Seen: 01/19/25 Narrative: Lilli is 29 year old here for induction of labor for BMI. She is wanting an unmedicated waterbirth and hoping for a gentle induction. Earlier today she elected for a membrane sweep, pumping, and doing the labor circuit to see if that would be enough to increase her contractions in intensity and frequency and make cervical change. During her membrane sweep her bag of galvan ruptured. Contractions have become stronger and more regular in the past few hours. Lilli is coping well. She requested a cervical check to help her decide if she will use antibiotics for being GBS positive. She is having positive movement. VERONICA Valencia Objective Exam: Objective: Constitutional: Alert and oriented x3, coping well, rated contractions a 5-6/10 on the pain scale for RN Vital signs stable, see nurse documentation. One slightly elevated blood pressure that was normal 15 minutes later. Will disregard. Abdomen: gravid, contractions palpate moderate and soft between Cervix: 6 cm/90%/-2 station/vertex NST: 135 bpm/ moderate variability/ accelerations present /single variable decelerations/contractions 2-5mins lasting 40-60 seconds Vital Signs: Last Vital Signs Temp 98.3 F 01/19/25 15:32 Pulse 97 01/19/25 16:35 Resp 20 01/19/25 15:32 BP 132/58 L 01/19/25 16:35 Pulse Ox 98 01/19/25 16:32 Assessment Labor Progress: Progressing Maternal Status: Coping well Plan Plan: 29 year old IOL for BMI History of pre-eclampsia- Monitor blood pressures per protocol. Category 2 monitoring strip GBS positive- still declining antibiotics, risks reviewed Requested cervical exam: /-2 Labor is progressing. Continue expectant management. Candidate for analgesia of choice. Planning unmedicated, waterbirth. Anticipate . Delivery/Labor/Induction Plan Plan: expectant management
--- NOTE | 2025-01-19 19:08 | W.PM.OBVAGDE ---
OB Procedure Vag Delivery Mother Details Mother Details: The patient is a 29 year-old, 2, now Para 2, admitted on 01/19/25 at 39 weeks 4 days gestation for induction of labor for BMI. : 2 Para: 2 Weeks Gestation: 39.4 Admission Date: 01/19/25 Additional Details Amniotic Membrane Status: SROM (with membrane sweep at 1300) Amniotic Membrane Rupture Date: 01/19/25 Amniotic Membrane Rupture Time: 12:58 Amniotic Membrane Fluid Description: Clear Analgesia/Anesthesia Type: Nitrous Oxide Waterbirth: Yes Pitcoin: No Intrapartal Events: None Labor Onset: 13:00 Complete: 18:00 Pushin:00 Heart: heart tones during second stage were indeterminant. Lilli was eager to get in the tub and did with urge to push. RN continually trying to monitor heart tones but could not keep baby on the monitor. 20 seconds of heart tones caught every few minutes some were traced, some not, with normal baseline rates. Second nurse used doppler which was also mostly unsuccessful in assessing baby. Second stage was progressing rapidly and delivery was imminent and just encouraged to push. Delivery Details Delivery Date: 01/19/25 Delivery Time: 18:22 Route of delivery: Infant Gender: Male Infant Viability: Alive; Heart Rate Present Position at Delivery: OA Delivery Details: Lilli admitted for induction of labor today for BMI. She was already aleksandr through the night prior. Accidental SROM with membrane sweep, breast pumping, and the labor circuit were enough to get into active labor. She progressed and coped through labor very well. As she started feeling more pressure and stronger contractions. Nurse filled up the tub as she was wanting a waterbirth. Assisted to the tub and began pushing on hands and knees at 1800 at which time she was assumed complete. Then repositioned to sitting leaning back supported by . She used nitrous oxide as well as hypnobirthing for pain control. She had excellent control and let perineum stretch during . At 1822 she delivered a viable male fetus. Infant was placed on maternal abdomen. Cord was clamped and cut after a 5 minute delay. Then baby was brought to the warmer and Lilli was helped up out of the tub to the bed to deliver placenta. Placenta delivered intact at 1829. A few clots passed with fundal massage. QBL equaling 110mL. Fundus firm. No tears. Lilli desires expectant management for bleeding, which is appropriate at this time. Nurse will notify if bleeding picks up. weighed 3580gm. VERONICA Valencia 1 Minute Interval Total Score: 8 5 Minute Interval Total Score: 8 Additional Details Shoulder Dystocia: No Placenta Delivery Time: 18:29 Placental Delivery Description: Spontaneous Procedure Done: Global Blood Loss: 110 Laceration: None Episiotomy Description: None Blood Loss Measurement Type: QBL Bakri Used: No Sponge/Need Count Correct: Yes Cord Vessel Description: 3 Vessels and Clamped/Cut Event Summary Status: Mother and were stable after delivery. Disposition: floor
[2025-01-20] VITALS (7 sets, daily range): BP systolic 115–146; BP diastolic 71–85; PULSE 69–94; RESP 12–18; TEMP 36.6–36.7; O2SAT 97–98
[2025-01-20] MEDS: IBUPROFEN 600 MG TABLET PO ×2 (02:34→22:48)
[2025-01-20] MEDS: DOCUSATE SODIUM 100 MG CAPSULE PO (08:47)
--- NOTE | 2025-01-20 09:11 | PM.OBPNVD1 ---
OB - PN:Subj Subjective Date Seen: 01/20/25 Interval history: error; please see other note for documentation Narrative: Lilli is a 29 y.o. G 2 P 2 who was admitted to L & D for IOL for elevated BMI. ?She had a NVD that was uncomplicated. The patient feels well. ?The pain is well controlled with current medications. ?She has no new complaints. ?She is breast feeding and reports things are going well. the patient has done well.? Vitals have been stable.? She has remained afebrile.? Has a good appetite, is tolerating a general diet. ?She is voiding without difficulty.? She is passing gas and has [not] had a bowel movement.? She is ambulating and denies any dizziness.? Has small amount of rubra lochia. She is planning [] for prevention. Problems: [] OB - PN: Obj Exam Physical Exam: Vital signs: Temp Pulse Resp BP Pulse Ox O2 Del Method 97.8 F 80 18 135/85 98 Room Air 01/20/25 08:49 01/20/25 08:49 01/20/25 08:49 01/20/25 08:49 01/20/25 08:49 01/20/25 08:49 OB - PN: Obj Data Labs Labs: Laboratory Results - last 24 hr 01/19/25 12:56 WBC 10.89 RBC 4.68 Hgb 13.0 Hct 40.9 MCV 87 MCH 28 MCHC 32 RDW Coeff of You 18.0 H Plt Count 366 Neut % (Auto) 72.0 Lymph % (Auto) 22.1 [place] % (Auto) 5.3 Eos % (Auto) 0.1 Baso % (Auto) 0.1 Neut # (Auto) 7.84 H Lymph # (Auto) 2.41 [place] # (Auto) 0.60 Eos # (Auto) 0.01 Baso # (Auto) 0.01 Abs Immat Gran (auto) 0.04 Imm/Tot Granulo (auto) 0.4 Blood Type A Positive Antibody Screen NEGATIVE OB - PN: A/P Delivery Assessment and Plan (1) SROM (spontaneous rupture of membranes): Status: Acute (2) Encounter for induction of labor: Status: Acute (3) Severe needle phobia: Status: Acute (4) Anxiety: Status: Acute (5) PTSD (post-traumatic stress disorder): Status: Acute (6) Obesity, Class II, BMI 35-39.9: Status: Acute (7) History of pre-eclampsia: Status: Acute
--- NOTE | 2025-01-20 09:24 | PM.OBPNVD1 ---
OB - PN:Subj Subjective Date Seen: 01/20/25 Narrative: Lilli is a 29 y.o. G 2 P 2 who was admitted to L & D for IOL for elevated BMI. ?She had a NVD that was uncomplicated. The patient feels well. ?The pain is well controlled with current medications. ?She has no new complaints. ?She is breast feeding and reports things are going well. the patient has done well.? Vitals have been stable.? She has remained afebrile.? Has a good appetite, is tolerating a general diet. ?She is voiding without difficulty.? She is not passing gas and has not had a bowel movement.? She is ambulating and denies any dizziness.? Has small amount of rubra lochia. Problems: none OB - PN: Obj Exam Physical Exam: Vital signs: Temp Pulse Resp BP Pulse Ox O2 Del Method 97.8 F 80 18 135/85 98 Room Air 01/20/25 08:49 01/20/25 08:49 01/20/25 08:49 01/20/25 08:49 01/20/25 08:49 01/20/25 08:49 Narrative: GENERAL APPEARANCE:? normal affect, alert, no distress MOOD:? appropriate CHEST:? clear to auscultation HEART:? regular rate and rhythm ABDOMEN:? soft, non-tender the uterine fundus is -1 cm, Midline and is appropriate for the stage of recovery. PERINEUM:? not assessed; no concerns EXTREMITIES:? normal and trace edema OB - PN: Obj Data Labs Labs: Laboratory Results - last 24 hr 01/19/25 12:56 WBC 10.89 RBC 4.68 Hgb 13.0 Hct 40.9 MCV 87 MCH 28 MCHC 32 RDW Coeff of You 18.0 H Plt Count 366 Neut % (Auto) 72.0 Lymph % (Auto) 22.1 [place] % (Auto) 5.3 Eos % (Auto) 0.1 Baso % (Auto) 0.1 Neut # (Auto) 7.84 H Lymph # (Auto) 2.41 [place] # (Auto) 0.60 Eos # (Auto) 0.01 Baso # (Auto) 0.01 Abs Immat Gran (auto) 0.04 Imm/Tot Granulo (auto) 0.4 Blood Type A Positive Antibody Screen NEGATIVE OB - PN: A/P Delivery Assessment and Plan (1) Encounter for induction of labor: Status: Acute (2) Anxiety: Status: Acute (3) PTSD (post-traumatic stress disorder): Status: Acute (4) History of pre-eclampsia: Status: Acute (5) Lactating mother: Problem details: Weaning as of 12/03/23 Status: Resolved (6) care following vaginal delivery: Status: Resolved Plan Anticipate d/c tomorrow. May see lactationcounselor if desires. Plan day: 1 Plan: routine care
[2025-01-20 14:42] LABS: Hematocrit* 35.3 % (33.0-51.0); Hemoglobin* 11.2 gm/dL (12.0-16.0); Mean Corpuscular HGB Conc 32 gm/dL (32-36); Mean Corpuscular Hemoglobin 28 pg (26-34); Mean Corpuscular Volume 89 fL (80-100); Red Blood Count* 3.98 m/uL (4.00-5.20); White Blood Count* 12.70 K/uL (4.50-11.00)
[2025-01-20 14:59] LABS: Alanine Aminotransferase* 17 U/L (4-35); Aspartate Amino Transferase* 34 U/L (12-35); Blood Urea Nitrogen* 11 mg/dL (5-24); Creatinine* 0.6 mg/dL (0.5-1.5); Est. Creatinine Clearance* 117.31; Estimated Glomerular Filt Rate 123 ml/min
[2025-01-20 15:08] LABS: Slide Review Reflex No
[2025-01-21 00:34] VITALS: BP 128/79; PULSE 81; RESP 18; TEMP 36.6; O2SAT 98
[2025-01-21 03:47] VITALS: BP 121/75; PULSE 81; RESP 18; TEMP 36.6; O2SAT 98
[2025-01-21 07:03] LABS: Hematocrit* 36.8 % (33.0-51.0); Hemoglobin* 11.7 gm/dL (12.0-16.0); Mean Corpuscular HGB Conc 32 gm/dL (32-36); Mean Corpuscular Hemoglobin 28 pg (26-34); Mean Corpuscular Volume 89 fL (80-100); Red Blood Count* 4.13 m/uL (4.00-5.20); White Blood Count* 10.28 K/uL (4.50-11.00)
[2025-01-21 07:23] LABS: Slide Review Reflex No
[2025-01-21 07:38] LABS: INR 0.82 (0.91-1.10); Prothrombin Time 12.0 Seconds
[2025-01-21 07:41] LABS: Alanine Aminotransferase* 19 U/L (4-35); Aspartate Amino Transferase* 29 U/L (12-35); Blood Urea Nitrogen* 12 mg/dL (5-24); Creatinine* 0.6 mg/dL (0.5-1.5); Est. Creatinine Clearance* 117.31; Estimated Glomerular Filt Rate 123 ml/min
--- NOTE | 2025-01-21 08:05 | P.DS_ITS ---
DS: Providers Provider Date Seen: 01/21/25 Date of admission: 01/19/25 11:03 Primary care physician: Not a Local Provider Admitting Clinician: Leslie Landeros CNM Attending Physician on discharge: Tika STONE Date of Discharge: 01/21/25 DS: Diagnosis Discharge Diagnosis (1) Gestational hypertension: Status: Acute (2) care and examination of lactating mother: Status: Acute (3) Normal spontaneous vaginal delivery: Status: Acute Exam Narrative: Exam Narrative: GENERAL APPEARANCE:? normal affect, alert, no distress MOOD:? appropriate CHEST:? clear to auscultation HEART:? regular rate and rhythm ABDOMEN:? soft, non-tender the uterine fundus is at Umbilicus, Midline and is appropriate for the stage of recovery. PERINEUM:? deferred, no laceration EXTREMITIES:? normal and no edema Const: Vital Signs, click to edit/add: Vital Signs - 24 hr 01/20/25 08:49 01/20/25 12:44 01/20/25 13:00 Temperature 97.8 F Pulse Rate [Pulse Oximeter] 80 77 Respiratory Rate 18 16 Blood Pressure [Le ft Arm] 135/85 146/84 H 137/80 Pulse Oximetry 98 98 Oxygen Delivery Me thod Room Air Room Air 01/20/25 17:29 01/20/25 20:28 01/21/25 00:34 Temperature 98.0 F 97.8 F Pulse Rate [Pulse Oximeter] 92 81 Respiratory Rate 16 18 Blood Pressure [Le ft Arm] 142/81 H 115/71 128/79 Pulse Oximetry 98 98 Oxygen Delivery Me thod Room Air Room Air 01/21/25 03:47 Temperature 97.9 F Pulse Rate [Pulse Oximeter] 81 Respiratory Rate 18 Blood Pressure [Le ft Arm] 121/75 Pulse Oximetry 98 Oxygen Delivery Me thod Room Air OB - DS: Summary Hospital Course Hospital Course: Lilli is a 29 y.o. G 2 P 2003 who was admitted to [facility] for IOL for elevated BMI and history of preeclampsia.? She had a NVD that was complicated by GHTN. The patient feels well.? The pain is well controlled with current medications.? She has no new complaints.? She is breast feeding and reports things are going well with a nipple shield due to tongue tie. the patient has done well.? Vitals have been stable.? She has remained afebrile.? Has a good appetite, is tolerating a general diet.? She is voiding without difficulty.? She is passing gas and has had a bowel movement.? She is ambulating and denies any dizziness.? Has small amount of rubra lochia. She is planning condoms for prevention.? ?? Problems: GHTN? ?? plan:? Discharge home with baby.? Follow up in 2 weeks and 6 weeks.? , may see if needed? Hgb 11.7. ? GHTN diagnosed by elevated BP greater than 4 hours apart? Labs WNL or stable with trending? Discharge home with BP cuff if does not already have one? Follow up in 3-5 days? Call for signs/symptoms of preeclampsia? Peripartum Data delivery method: Vaginal Laceration description: None Episiotomy description: None complications: none Infant Gender: Male Infant Discharge Plan: Home Status at Discharge Functional status at discharge: independent ambulation Overall status at discharge: patient is progressing back to baseline Time Spent with Patient Time attestation: Total time spent providing and/or coordinating discharge services: Time spent: Less than 30 minutes Discharge Plan Discharge Disposition: Home, Self-Care Date of Admission: 01/19/25 11:03 Attending Provider on Discharge: Vania Villalta Primary Care Provider: Provider,Not a Local Condition: Stable Anticipated Discharge Date/Time: 01/21/25 16:10 Discharge Medications: New docusate sodium 100 mg Capsule 100 mg PO DAILY Qty: 60 0RF Continued Magnesium Complex 300 mg magnesium tablet 225 mg PO DAILY Prenatabs FA 29-1 mg tablet 1 tab PO DAILY Discontinued aspirin 81 mg tablet 81 mg PO QDAY ferrous sulfate [iron] 325 mg (65 mg iron) tablet 325 mg PO Q48H Discharge Orders: Discharge Order (Routine); Ordered 01/21/25 Ordered By: Vania Villalta Patient Education: OB Over the Counter Medication Information, OB Vaginal/Breast Feeding Additional Instructions: Discharge instructions were reviewed with the patient including signs and symptoms of infection and home going medications Nothing vaginally for 6 weeks: no tampons or intercourse Do not drive while taking narcotic pain medication(s) Off Work or School for 6 weeks Symptoms to report to doctor: * Bleeding that saturates more than one pad per hour * Passing clots larger than the size of a golf ball * Pain not relieved by prescribed medication * Fever above 100.4 degrees Fahrenheit * A foul vaginal odor * Difficulty in emotions, mood, and functions * Thoughts of hurting yourself and/or * Painful, reddened area in your breast * Any drainage, redness, or tenderness in your IV/epidural site * Severe headache that doesn't improve after taking medications * Changes in vision, including temporary loss of vision, blurred vision, and/or light sensitivity * Upper abdominal pain (usually under ribs on the right side) * Decrease in urination or painful, frequent urinating * Chest pain * Shortness of breath * Tenderness or pain with redness and/swelling in the calf(s) of your leg [facility] for [facility] BP check?SaturdayJan 25. Call with BP greater than or equal to 140/90 2-week visit: discuss infant feeding concerns, review control options and screen for anxiety/depression. 6-week visit for an annual exam. consultation services are available to all mothers and babies for the first year after delivery.? To make an appointment, please call [phone]. Activity Level: Activity as Tolerated and No strenuous activity Discharge Diet: Regular Follow Up Appointments: [facility] [Provider Group] Forms: Advisor Client [employer] Info Instructions
[2025-01-21] MEDS: DOCUSATE SODIUM 100 MG CAPSULE PO (08:45)
[2025-01-21 08:48] VITALS: BP 112/76; PULSE 81; RESP 16; O2SAT 97
[2025-01-21 13:34] VITALS: BP 126/82; PULSE 82
== END 2025-01-21 16:10 | disposition home or self-care (01) | DRG 807 ==
PROVIDERS: Midwife, Lay; Admitting Provider Advanced Practice Midwife; Visit Provider Advanced Practice Midwife
DX: O99.214 Obesity complicating childbirth (principal); Z37.0 Single live birth; O13.4 Gestational [pregnancy-induced] hypertension without significant proteinuria, complicating childbirth; E66.812 Obesity, class 2; F40.231 Fear of injections and transfusions; O99.344 Other mental disorders complicating childbirth; F41.9 Anxiety disorder, unspecified; F43.10 Post-traumatic stress disorder, unspecified; Z3A.39 39 weeks gestation of pregnancy
CPT/HCPCS: 36415; 82565; 84450; 84460; 84520; 85025; 85027; 85384; 85610; 85730; 86592; 86850; 86900; 86901; A9270

== ENCOUNTER 2025-01-25 18:08 | Emergency (ER) | payer OTHER, SELFPAY ==
--- OUTSIDE RECORDS SUMMARY | 2025-01-11 14:00 | XMS_ITS | Encounter Summary ---
Author Organization [employer] Address [address], [place] [address] Care Team Providers Care Casualty Underwriter Name Role Phone Twyla Rice PA-C Primary Care Provider [phone] Reason for Visit * Reason Comments Follow-up Encounter Details Date Type Department Care Team (Late st Contact Info) Description 01/11/2025 2:00 PM DESKTOP PUBLISHER Telemedicine [facility] [address] [place], [place] [id number] Dulce Lai, Romero, [address] [place] [address] [address] [place], [place] [address] MARCO A (generalized anxiety disorder) (HRC) (Primary Dx); Psychological trauma history Social History Tobacco Use Types Packs/Day Years Used Date Smoking Tobacco: Never Smokeless Tobacco: Never Alcohol Use Standard Drinks/Week Comments Yes 3 (1 standard drink = 0.6 oz pur e alcohol) monthly PHQ-2 Answer Date Recorded PHQ-2 Score 1 01/11/2025 Comments No Sex and Gender Information Value Date Recorded Sex Assigned at Not on file Legal Sex Female 5:06 AM CDT Gender Identity Not on file Sexual Orientation Not on file 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 Patient location: work, Clinician location: home. Patient presents today for an individual session, to address anxiety and trauma history Start time: 2:01pm, End time: 2:50pm. Based on today's clinical assessment of the patient, patient appears to have the capacity to participate and benefit from psychotherapeutic intervention. Most recent PHQ-9: 01/11/2025 PHQ-9 PHQ9 Score - Smartform (Adult) 4 PHQ9 Score - Online Questions 4 Patient reported struggling more with anxiety as of late. Much of the anxiety is related to her and being due next week. There is uncertainty of whether or not she should induce as well as some fear with the carrying on beyond her due date given medical issues that she experienced with her 1st . Time was spent in session processing through this distress and associatedworry thoughts, clarifying her thoughts and feelings, taking perspective, identifying her options and the pros and cons to these. Patient reported the conversation as helpful to illuminating aspects of the situation that she was not previously aware of. Patient also shared that she recently had a good conversation with her mother about their relationship. She stated her belief that her mother was able to hear some of her concerns and that there may be some opportunity to improve the relationship. However, she knows that this will require some workfor them to coordinate together, and she recognizes given the upcoming of her 2nd child it may not be the right time to pursue mending this relationship at this time. Patient's symptoms impact their functioning in the following areas: Communication with others, Housekeeping, and Laundry. Objective The patient is alert, casually dressed and neatly groomed. She behaved in a(n) cooperative, engaged, friendly manner during the session today. Her affect is appropriate. Insight is good, judgment is good. Her orientation, fund of knowledge and memory are intact. Risk of harm to self: Denies Risk of harm to others: Denies Assessment/Plan 1. MARCO A (generalized anxiety disorder) (HRC) 2. Psychological trauma history Treatment Goals:Anxiety GOAL OBJECTIVE INTERVENTION METHODS PROGRESS TOWARDS GOAL Target Date Anxiety: Reduce apprehensive expectation and intrusive worry associated with behavioral and physical manifestations. Objective: The Patient will continue to utilize CBT and DBT strategies to assist with managing racing thoughts, including grounding techniques. She will be able to identify what are reasonable expectations for herself versus high expectations, practicing 2-3 strategies to promote more realistic goals. She will continue to utilize strategies to assist with self compassion. ACT, CBT, Mindfulness skills training, Solution Focused Therapy and Supportive psychotherapy, Anchored Relational Model ([facility]) Progress to date: Good Improvement 04/21/2025 Psychological trauma history GOAL OBJECTIVE INTERVENTION METHODS PROGRESS TOWARDS GOAL Target Date Psychological trauma history: Patient will be able to manage trauma symptoms more effectively allowing her to practice healthier boundaries and improve relational functioning. Objective: Patient will be able to identify trauma programming and conditioning, the impact that this has on her view of self, others, and her future andhow she navigates these. She will identify alternative strategies to help her develop and practice healthier boundaries with the self and others. Patient will process through traumatic experiences asneeded. CPT, ART, Systems, Insight oriented therapy, Solution Focused , Anchored Relational Model ([facility]), DBT Progress to date: Good progress 04/21/2025 Given the patient's symptoms and level of functioning, it is recommended that the patient be seen in 3-4 weeks. Follow up on managing anxiety, journaling and grounding; navigating relationship with mom, adjusting to new baby. TOP PUBLISHER documented in this encounter Plan of Treatment Upcoming Encounters Date Type Department Care Team (Late st Contact Info) Description 02/12/2025 10:30 AM DESKTOP PUBLISHER Telemedicine [facility] [address] [place], [place] [phone] Dulce aLi PsyD, LP [address] [place] [id number] documented as of this encounter Visit Diagnoses Diagnosis MARCO A (generalized anxiety disorder) (HRC)- Primary Generalized anxiety disorder Psychological trauma history Other personal history of psychological trauma, presenting hazards to health documented in this encounter Care Teams Casualty Underwriter Relationship Specialty Start Date End Date Twyla Rice PA-C [address] [place] [address] PCP - General 01/23/12 documented as of this encounter
[2025-01-25] VITALS (18 sets, daily range): BP systolic 105–149; BP diastolic 66–86; PULSE 76–92; RESP 12–18; TEMP 36.6; O2SAT 97–99; BMI 38.8
--- OUTSIDE RECORDS SUMMARY | 2025-01-25 18:10 | XMS_ITS | Clinical Summary ---
Author Organization [facility] Address [address] [place] [address] Care Team Providers Care Process Manufacturing Engineer Name Role Phone Twyla Rice PA-C Primary Care Provider [phone] Source Comments You are receiving this document as you are listed as the primary care provider,follow-up provider, or the patient has been referred to you for consultation.This is in compliance with the Medicare and[facility] EHR Incentive Program,which states Providers who transition their patient to another setting of careor provider of care or refers their patient to another provider of care shouldprovide summary care record for each transition of care or referral. [facility] Allergies No known active allergies Medications omeprazole (PRILOSEC) 20 MG capsule Take 20 mg by mouth daily. Take 1 hour before a meal. Active escitalopram oxalate (LEXAPRO) 5 MG tabletIndications: MARCO A (generalized anxiety disorder) (HRC) Take 1 tablet (5 mg) daily x 1 week then increase to 2 tablets (10 mg) daily. 60 Tablet 1 0 Active desogestrel-ethiny l estradiol (ISIBLOOM) 0.15-30 MG-MCG tabletIndications: Oral contraceptive pill surveillance Take 1 Tablet by mouth daily. 84 Tablet 3 0 Active hydrOXYzine HCl (ATARAX) 25 MG tabletIndications: Panic attacks (HRC) Take 1 Tablet by mouth three times a day as needed. 30 Tablet 3 0 Active Active Problems Problem Noted Date Diagnosed Date MARCO A (generalized anxiety disorder) 09/20/2017 Psychological trauma history 09/20/2017 Obesity (BMI 30-39.9) 04/17/2017 Resolved Problems Problem Noted Date Diagnosed Date Resolved Date Post-traumatic stress disorder, unspecified 03/30/2024 04/21/2024 PTSD (post-traumatic stress disorder) 07/11/2020 04/17/2023 Gastroesophageal reflux dise ase without esophagitis 04/17/2017 11/26/2019 IBS (irritable bowel syndrome) 04/17/2017 11/26/2019 Adjustment disorder with mix ed anxiety and depressed mood 05/30/2015 05/26/2016 Encounters Date Type Department Care Team Description 01/11/2025 2:00 PM CLINICAL BIOSTATISTICIAN Telemedicine [facility] [address] [place] [id number] Dulce Lai PsyD, LP MARCO A (generalized anxiety disorder) (HRC) (Primary Dx); Psychological trauma history 11/26/2024 3:00 PM CDT Telemedicine [facility] [address] [place] [id number] Dulce Lai PsyD, LP MARCO A (generalized anxiety disorder) (HRC) (Primary Dx); Psychological trauma history 11/11/2024 3:00 PM CDT Telemedicine [address] [address] Dulce Lai PsyD, LP MARCO A (generalized anxiety disorder) (HRC) (Primary Dx) 10/28/2024 2:00 PM CDT Office Visit [facility] [address] [place] [id number] Dulce Lai PsyD, LP MARCO A (generalized anxiety disorder) (HRC) (Primary Dx); Psychological trauma history from Last 3 Months Immunizations Immunization Administration Dates Next Due 4vHPV (Gardasil) 01/30/2013,05/14/2012, 2 DTaP 06/22/1998 DTaP/Hib 07/16/1994,1993 Flu Vac Preserv Free (3+yrs) 02/19/2003 HepB Adult (Engerix-B, 20+ y rs, 3 dose series) 07/16/1994,04/06/1994,1993 Influenza LAIV (Nasal, 2-49 yrs) 01/27/2008 Influenza Vaccine Q/LAIV Int ranasal 2-49 yrs ([facility]) 02/16/2015,01/16/2014,01/30/2013 MCV4 (Menactra) 08/02/2011 MMR 06/22/1998,07/16/1994 OPV, Trivalent (Orimune or tOPV) 04/20/1999,07/02,1993 TDAP (BOOSTRIX) 04/16/2005 Tdap 05/26/2016 Varicella 01/23/2012,08/29/1995 Family History Medical History Relation Name Comments Asthma Father Anxiety Mother Depression Mother possible bipola r disorder GI Mother IBS High Blood Pressure Mother Other Mother one kidney Depression Brother 1 Diabetes Maternal Grandfather Heart Disease Maternal Grandfather Multip le MIs High Blood Pressure Maternal Grandfather High Cholesterol Maternal Grandfather Glaucoma Other MGGM Macular Degeneration Other MGGM ALS Paternal Grandfather Cancer, Skin Paternal Grandmother Diabetes Paternal Grandmother Anxiety Sister Cancer Negative Family History Stroke Negative Family History Relation Name Status Comments Father Alive Mother Alive Brother 1 Alive Brother 2 Alive Maternal Grandfather (Age 68) CH F Maternal Grandmother Alive Other MGGM Alive Paternal Grandfather (Age 62) AL S Paternal Grandmother Alive Sister Alive Social History Tobacco Use Types Packs/Day Years [...] 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 Not on file Not on file Obtained her Master's degree Not on file Not on file Not on file Last Filed Vital Signs Vital Sign Reading Time Taken Comments Blood Pressure 146/95 09/26/2018 9:32 AM CDT 135 /93 Pulse 123 09/26/2018 9:32 AM CDT 114 Temperature 37.2 C (99 F) 09/26/2018 9:32 AM CDT Respiratory Rate - - Oxygen Saturation 98% 09/26/2018 9:32 AM CDT Inhaled Oxygen Concentration - - Weight 105.2 kg (232 lb) 12/09/2019 7:31 AM CDT Height 162.6 cm (5' 4) 07/22/2018 8:18 AM CDT Body Mass Index 39.82 07/22/2018 8:18 AM CDT Plan of Treatment Upcoming Encounters Date Type Department Care Team (Late st Contact Info) Description 02/12/2025 10:30 AM CLINICAL BIOSTATISTICIAN Telemedicine [facility] [address] [place], [place] [id number] Dulce Lai, Romero, LP [address] [facility] [address] [place], [place] [address] Health Maintenance Due Date Last Done Comments Hep C Screening (Preventive Services) 1993 HIV Screening (Preventive Services) 2009 Cervical Cancer Screening 07/22/2021 07/22/2018, Adult Preventive Visit 11/25/2021 0, 07/22/2018, 05/26/2016 COVID-19 Vaccine ( season) 2024 Influenza Vaccine (#1) 2024 5, 02/16/2015, 01/16/2014, Additional history exists DTaP/Tdap/Td Vaccine (6 - Tdap) 05/26/2026 05/26/2016, 04/16/2005, 06/22/1998, Additional history exists Zoster/Shingles Vaccine (1 of 2) 2043 HepB Vaccine Completed 07/16/1994, 05/1994, 1993 Hib Vaccine Completed 07/16/1994, 1993 IPV (Polio) Vaccine Completed 04/20/1999, 07/16/1994, 1993 MCV4 Vaccine Completed 08/02/2011 HPV Vaccine Completed 01/30/2013, 05/02, 01/23/2012 HepA Vaccine Aged Out No longer eligi ble based on patient's age to complete this topic Meningococcal B Vaccine Aged Out No l onger eligible based on patient's age to complete this topic Pneumococcal Vaccine Aged Out No long er eligible based on patient's age to complete this topic Procedures Procedure Name Priority Date/Time Associated Diagnosis Comments CYTOLOGY (PAP) Routine 07/22/2018 8:44 AM CDT Screening for cervical cancer from Last 3 Months or Most Recently Relevant to Health Maintenance Results * PAP Test (07/22/2018 8:44 AM CDT) Case Report Pap Case: [id number] Authorizing Provider: Twyla Rice PA-C Collected: 07/22/2018 08:44 AM Ordering Location: [facility] Received: 07/22/2018 05:55 PM First Screen: Kelly Mcdermott CT (ASCP) Specimen: Pap Test, Routine, Cervix/Endocervix 07/24/2018 10:16 AM CDT [facility] Pap Specimen Adequacy Satisfactory for evaluation, endocervical/salinas sformation zone component present. 07/24/2018 10:16 AM CDT [facility] Pap Interpretation Negative for intraepithelial lesion or malignancy (NILM). 07/24/2018 10:16 AM CDT [facility] at 1016 CDT Gross Description The specimen is received in SurePath fixative and properly labeled. 1 Pap-stained SurePath slide is prepared. 07/24/2018 10:16 AM CDT [facility] Pap Disclaimer The Pap test is a screening test designed to aid in the detection of cervical cancer and its precursor lesions. It is not a diagnostic procedure and should not be used as the sole means of detecting cervical cancer. Both false-positive and false-negative reports may occur. 07/24/2018 10:16 AM CDT [facility] Embedded Images 9 10:16 AM CDT [facility] Other Specimen Type ENTIRE ENDOCERVIX / Unknown 07/22/2018 8:44 AM CDT 07/22/2018 5:55 PM CDT Comment:LMP: Patient's last menstrual period was 07/21/2018 (exact date). Twyla Rice PA-C LAB PATHOLOGY Final Resul t [facility] [address] [place] [address], [facility] from Last 3 Months or Most Recently Relevant to Health Maintenance Insurance [employer]EL[employer] INSURED * Guarantor: Mesha Chambers Account Type Relation to Patient Date of Phone Billing Address Personal/Family [phone] (Work) [address] [place] [address] Care Teams Process Manufacturing Engineer Relationship Specialty Start Date End Date Twyla Rice PA-C [address] [place] [address] PCP - General 01/23/12
--- NOTE | 2025-01-25 18:34 | ED_ITS ---
HPI - General Adult General Time Seen by Provider: 18:34 Date Seen: 01/25/25 Chief complaint: Hypertension Stated complaint: high bP Time Seen by Provider: 01/25/25 18:33 Source: patient, family, RN notes reviewed and old records reviewed Mode of arrival: ambulatory Limitations: no limitations History of Present Illness HPI narrative: Note patient has a severe needle phobia. Lilli is a very pleasant well-spoken 29-year-old female 002 with history of gestational hypertension, preeclampsia with her 1st baby who comes to the emergency room for concerns regarding a headache today along with elevated blood pressures. Lilli notes elevated blood pressures right before her delivery delivery with induction at 39+ for weeks and delivery on 01/19. Blood pressures, according to chart, normalized and discharge blood pressure was 121/75. Patient departed home. Was seen this morning in the clinic with a blood pressure of 130/82. When she went home however she developed a headache but noted that she had not yet had any coffee which she does daily. Did drink coffee and the headache did not go away. At 0230 she had an acetaminophen and it still did not help the headache. Her headache is in her forehead behind her eyes and in the back of her head. She notes that she is does not usually get headaches but did have frequent headaches during this . No neck pain, floaters in her vision. While home she took her blood pressures at approximately 1500 hours. They were 137/91 and 145/91 she proceeded to the ER for evaluation. Patient denies fevers at this time but noted on January 21 and SaturdayJanuary 22 patient experience sugars and chills along with increasing lower abdominal pain and cramping especially with feeding. She described the discomfort as wrapping around to her back. It is still present when she is not feeding but not as severe. On SaturdayJanuary 23 she developed a fever up to 101.7. She notes that she spoke to the sales route driver helper at that time and because she did not have any other symptoms she was told to monitor. Later on because of continued fever, patient was initially placed on Bactrim but then switched to amoxicillin for presumed UTI. Since that time her symptoms have gotten much better and her fever has not returned. Today she has no urinary symptoms. She has no significant abdominal pain especially in the right upper quadrant. Ob course Blood pressure on admission, 135/85, 146/84, 137/80. Patient had normal vaginal delivery water on 01/19/2025 at 39+ 4 weeks. She was group B positive strep elected not to do antibiotics. A membrane sweep was done at 1300 at which time the water broke. A baby boy a was delivered about 1822 or almost 5-1/2 hours after the initial membranes sweep. Previous resulted in a preeclampsia with IV labetalol, magnesium and admission. Related Data Home Medications ?Medication ?Instructions ?Recorded ?Confirmed vits,calcium no.78-iron 1 tab PO DAILY 01/19/25 fumarate-folic acid 29 mg-1 mg tablet (Prenatabs FA) magnesium carb,citrate,oxide 225 mg PO DAILY 07/15/24 01/19/25 (Magnesium Complex) Previous Rx's ?Medication ?Instructions ?Recorded docusate sodium 100 mg capsule 100 mg PO DAILY #60 cap s 01/21/25 amoxicillin 500 mg capsule 500 mg PO BID #14 caps 01/03 04/28 Allergies Allergy/AdvReac Type Severity Reaction Status Date / Time No Known Drug Allergies Allergy Verified 01/25/25 18:25 Review of Systems Status of ROS: Reports: 6 or more systems reviewed and unremarkable except as noted in History and below Const: Reports: fever (Resolved after initiation of antibiotics) and chills (Resolved after initiation of antibiotics) Eyes: Denies: change in vision, blurry vision or seeing flashes ENMT: Denies: neck pain or nasal congestion Cardio: Denies: chest pain, swelling of feet/ankles or shortness of breath with exertion Resp: Denies: shortness of breath or cough GI: Reports: abdominal pain (Low abdomen and greatly improved after antibiotics.); Denies: vomiting : Denies: painful urination Musculo: Denies: neck pain or extremity pain Neuro: Reports: headache; Denies: weakness in extremities, dizziness or slurred speech [facility] Medical History History of pre-eclampsia ?Z87.59 - Personal history of other complications of , childbirth and the puerperium (ICD-10) Easy bruising ?R23.3 - Spontaneous ecchymoses (ICD-10) Normal spontaneous vaginal delivery ?O80 - Encounter for full-term uncomplicated delivery (ICD-10) Acute appendicitis with rupture ?K35.32 - Acute appendicitis with perforation, localized peritonitis, and gangrene, without abscess (ICD-10) Severe preeclampsia ?O14.10 - Severe pre-eclampsia, unspecified trimester (ICD-10) IBS (irritable bowel syndrome) ?K58.9 - Irritable bowel syndrome without diarrhea (ICD-10) Surgical History Hx of appendectomy ?Z90.49 - Acquired absence of other specified parts of digestive tract (ICD- 10) H/O tooth extraction ?K08.409 - Partial loss of teeth, unspecified cause, unspecified class (ICD- 10) [place] teeth extracted ?K08.409 - Partial loss of teeth, unspecified cause, unspecified class (ICD- 10) Family History Mother Diabetes Kidney disease ADHD PTSD (post-traumatic stress disorder) Anxiety Bipolar 1 disorder H/O gastric sleeve IBS (irritable bowel syndrome) Mammogram abnormal Abnormal Pap smear of cervix Father Asthma Brother No problems noted. 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[employer] Partner: Mohamud works as [employer] tech Lives with: maci Mallory Pets: 2 dogs Abuse: Denies past/present Special Diet: Denies eats organic and limits gluten Ok with a blood transfusion: yes Culture or muslim beliefs: denies RISK FACTORS Exercise Times/wk: no, occ yoga and walking Depression/Anxiety: anxiety in past has 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, meds last in 2018, does go to therapy Seat Belt Use: Routinely Smoking: Denies past/present Alcohol/day: none currently; 2-3 on occasion prior, socially Caffeine: not currently Drug Use: Denies past/present Chicken Pox: vaccinated MRSA: Denies What is your current living situation?: I presently have a place to live Problems where you live: no known problems Problems where you live details: n/a In the past 12 months, utilities in danger of being shut off: no In past 12 months, lack of transportation kept you from medical appts, meetings, work, or getting things needed for daily living: no In the past 12 mos, have been you worried that your food would run out before you had money to buy more?: never true In the past 12 mos, the food you bought just didn't last and you didn't have money to buy more?: never true Smoking Status: Never smoker Do you use any of these nicotine containing products: None Second hand tobacco smoke exposure: No How often do you have a drink containing alcohol: monthly or less How often do you have six or more drinks on one occasion: Never AUDIT-C Alcohol total score: 1 Non-prescribed substance use: denies use Caffeine: Yes (occasionally) How often does anyone, including family, friends and others, physically hurt you : never How often does anyone, including family, friends and others, insult or talk down to you: never How often does anyone, including family, friends and others, threaten you with harm: never How often does anyone, including family, friends and others, scream or curse at you: never service: No Exam Narrative: Exam Narrative: Alert and oriented. Nontoxic in appearance. Very comfortable nursing her child. External ears eyes nose clear. Face symmetrical. Pupils are equal. Neck is supple no lymphadenopathy. No guarded movement and range of motion is full. Heart with regular rate and rhythm. Lungs are clear bilaterally. Abdomen soft. No tenderness in the right upper quadrant. Lower extremities without edema. Const: Vital Signs, click to edit/add: Vital Signs - 24 hr 01/25/25 18:16 01/25/25 18:21 01/25/25 18:56 Temperature 97.9 F Pulse Rate Pulse Rate [Pulse Oximeter] 89 92 Respiratory Rate 12 18 Blood Pressure 148/69 H Blood Pressure [Le ft Upper Arm] 149/86 H 144/83 H Pulse Oximetry 98 97 Oxygen Delivery Me thod Room Air Room Air 01/25/25 19:15 01/25/25 19:32 01/25/25 19:54 Temperature Pulse Rate Pulse Rate [Pulse Oximeter] Respiratory Rate Blood Pressure 118/75 124/70 107/77 Blood Pressure [Le ft Upper Arm] Pulse Oximetry Oxygen Delivery Me thod Room Air 01/25/25 20:00 01/25/25 20:02 01/25/25 20:03 Temperature Pulse Rate 76 78 84 Pulse Rate [Pulse Oximeter] Respiratory Rate Blood Pressure 107/69 Blood Pressure [Le ft Upper Arm] Pulse Oximetry 98 98 98 Oxygen Delivery Me thod 01/25/25 20:15 01/25/25 20:17 01/25/25 20:30 Temperature Pulse Rate 87 79 79 Pulse Rate [Pulse Oximeter] Respiratory Rate Blood Pressure 120/69 Blood Pressure [Le ft Upper Arm] Pulse Oximetry 97 98 99 Oxygen Delivery Me thod 01/25/25 20:32 01/25/25 20:47 01/25/25 21:02 Temperature Pulse Rate 86 Pulse Rate [Pulse Oximeter] Respiratory Rate Blood Pressure 115/84 120/70 118/66 Blood Pressure [Le ft Upper Arm] Pulse Oximetry 97 Oxygen Delivery Me thod 01/25/25 21:17 Temperature Pulse Rate Pulse Rate [Pulse Oximeter] Respiratory Rate Blood Pressure 112/74 Blood Pressure [Le ft Upper Arm] Pulse Oximetry Oxygen Delivery Me thod Documenting provider has reviewed patient's vital signs: yes Course Course ED Course: Patient noted to have elevated blood pressure upon presentation 149/86 and 144/83. Certainly this is come of concern given her 1st with postpa rtum elevated blood pressures in need for admission and BP control. At this time will order preeclampsia labs diffuse in our order set. Because of patient's severe needle phobia she is receptive to IV placement with drawing of blood out of the catheter. This was placed in the event that we would need to admit order further medications and hopefully decrease the need for frequent needle use. Have asked that we do frequent blood pressure checks while she is here and awaiting laboratory values. Will speak to OBGYN on-call. Concerns also regarding fever up to 101.7 48 hours ago which had been proceeded by chills and shivering for the previous 48 hours. Much improved at this time. Possibly urinary tract infection. A but cannot rule out endometritis. Today abdomen is soft nontender. No foul-smelling discharge and fevers have dissipated. At this time I do not see value in collecting urine specimen. Certainly blood culture room would be of low yield given the use of antibiotics at this time and the fact that fevers have resolved. Would have patient keep a close eye on this however and return for any worsening symptoms. Reevaluation(s) Reevaluation #1: Labs include normal creatinine, BUN, AST, ALT minimally elevated at 39. Awaiting protein to urine ratio. The pleasure of speaking with Dr. Quiroz, OBGYN sap plant maintenance consultant. Patient's time here without any intervention or treatment of the headache her blood pressure has come down and is now ranging from 107-115 systolic. OBGYN does suggest treating headache as labs are reassuring. We will use Toradol 15 mg IV. For persistent headache will also try Reglan. If headache does not resolve will contact OBGYN once again. Reevaluation #2: Headache much improved. Some residual headache behind eyes but occipital headache has resolved. Occasional radiation into forehead. Pressures continue to be reassuring. Reevaluation #3: Patient's headache 03/13. Mild residual retro-orbital feeling but headache otherwise has entirely resolved including frontal. No visual changes. Blood pressures continue to be reassuring.Protein creatinine ratio is elevated at 0.28. Spoke to OBGYN once again regarding updated results. Does feel the patient is safe to go home at this time. Vital Signs Vital signs: Initial Vital Signs Pulse Rate 89 01/25/25 18:16 Respiratory Rate 12 01/25/25 18:16 Respiratory Depth Normal 01/25/25 18:16 Blood Pressure 149/86 H 01/25/25 18:16 Blood Pressure Mean 107 H 01/25/25 18:16 Blood Pressure Position Sitting 01/25/25 18:16 Pulse Oximetry 98 01/25/25 18:16 Oxygen Delivery Method Room Air 01/25/25 18:16 Vital Signs Pulse Rate 89 01/25/25 18:16 Respiratory Rate 12 01/25/25 18:16 Blood Pressure 149/86 H 01/25/25 18:16 Pulse Oximetry 98 01/25/25 18:16 Oxygen Delivery Method Room Air 01/25/25 18:16 Temperature 97.9 F 01/25/25 18:21 Pulse Rate 86 01/25/25 20:32 Respiratory Rate 18 01/25/25 18:21 Blood Pressure 112/74 01/25/25 21:17 Pulse Oximetry 97 01/25/25 20:32 Oxygen Delivery Method Room Air 01/25/25 19:32 Medications Administered Medications: Discontinued Medications Generic Name Dose Route Start Last Admin Trade Name Angel PRN Reason Stop Dose Admin Amoxicillin 500 mg 01/25/25 20:38 01/25/25 21:25 Amoxicillin 250 Mg Capsule PO 01/25/25 20:39 500 mg ONCE ONE Administration Sodium Chloride 1,000 mls @ 1,000 mls/hr 01/25/25 20:38 01/25/25 20:45 0.9 % Sodium Chloride 1000 Ml IV 01/25/25 21:37 1,000 mls/hr .Q1H TYLER Administration Ketorolac Tromethamine 15 mg 01/25/25 20:31 01/25/25 20:38 Ketorolac 15 Mg/Ml Inj IVP 01/25/25 20:32 15 mg ONCE ONE Administration Medical Decision Making MDM Narrative Medical decision making narrative: 1. Hypertension-patient noted to have elevated blood pressure into the 140s systolic and 90s diastolic at home associated with a headache not responsive to caffeine or acetaminophen. Blood pressure markedly improved in the ED without any intervention. Of course concerns regarding blood pressures as patient had this with her 1st . The laboratory values were reassuring in this instance and again blood pressure improved to 115 systolic. No abdomi nal pain. Given this OBGYN felt that we could continue to monitor. She has asked for patient to be called in the morning for follow-up appointment to be with 1 of the providers in the clinic on SaturdayJanuary 27. Of course if patient should have increasing blood pressures at home, visual changes, abdominal pain, or any other changes she will need to return to the ED. 2. Headache-patient noted occasional headaches during and headache today is improved with only residual retro-orbital discomfort at this time with 1 dose of Toradol 15 mg. Backup plan had been to also use Reglan p.o. but we did not have to do that given the fact that she was feeling much improved. No flashers in vision. 3. Fever-patient noted a fever up to 101.7 on SaturdayJanuary 23. Patient was treated for presumed UTI by sales route driver helper with amoxicillin. Patient notes that she has had resolution of the fever and is feeling much better. While being treated for UTI, I would also be concerned about endometritis and should patient have fever, vomiting, increasing abdominal pain, foul-smelling discharge I would like her to return for further evaluation. White count this evening was normal. 3. Disposition-home at this time. She and her feel comfortable with this plan. They will be monitoring blood pressures at home return for increasing blood pressures, increasing headache, abdominal pain, fever, flashers in vision and the onset of new symptoms. Medical Records Medical records reviewed: Yes I reviewed the patient's medical records Medical records narrative: Obstetrical notes for the admission, delivery and discharge reviewed. Lab Data Lab results reviewed: Yes I reviewed the patient's lab results Labs: Lab Results 01/25/25 01/25/25 Range/Units 19:05 19:43 WBC 8.53 (4.50-11.00) K/uL RBC 4.43 (4.00-5.20) m/uL Hgb 12.4 (12.0-16.0) gm/dL Hct 38.7 (33.0-51.0) % MCV 87 (80-100) fL MCH 28 (26-34) pg MCHC 32 (32-36) gm/dL Plt Count 366 (140-440) K/uL BUN 14 (5-24) mg/dL Creatinine 0.7 (0.5-1.5) mg/dL Estimated Creat Clear 100.55 Estimated GFR 119 ml/min AST 39 H (12-35) U/L ALT 26 (4-35) U/L Urine Creatinine 90.7 mg/dL Protein/Creatinin Ratio 0.28 H (0-0.19) Urine Total Protein 25 mg/dL Discharge Plan Discharge Clinical Impression: Hypertension, condition or complication Headache Qualifiers: Headache type: unspecified Headache chronicity pattern: acute headache Intractability: not intractable Qualified Code(s): R51.9 - Headache, unspecified Patient Disposition: Home, Self-Care Condition: Improved Additional Instructions: For high blood pressure: In a while I a.m. pleased that your blood pressure normalized during her stay we should continue to monitor with blood pressure checks at home. Plan is for you to be seen by a provider on SaturdayJanuary 27 in the clinic. They should call you and set up an appointment. However, if blood pressure start elevating once again please return to the ED for further evaluation. Monitor also for unrelenting headache, right upper quadrant pain, confusion, vomiting, flashers or change in your vision. All of those should make you come in to be evaluated even if the blood pressure is normal. For recent fever: Continue to monitor and should you experience foul smelling discharge, increasing abdominal pain, return of fever or chills please seek medical attention and return once again. Prescriptions: No Action Magnesium Complex 300 mg magnesium tablet 225 mg PO DAILY docusate sodium 100 mg Capsule 100 mg PO DAILY Qty: 60 0RF Prenatabs FA 29-1 mg tablet 1 tab PO DAILY amoxicillin 500 mg capsule 500 mg PO BID Qty: 14 0RF Follow Up/Referrals: Provider,Not a Local [Primary Care Provider, Family Practice] Stand Alone Forms: [employer] Info Instructions
[2025-01-25 19:12] LABS: Hematocrit* 38.7 % (33.0-51.0); Hemoglobin* 12.4 gm/dL (12.0-16.0); Mean Corpuscular HGB Conc 32 gm/dL (32-36); Mean Corpuscular Hemoglobin 28 pg (26-34); Mean Corpuscular Volume 87 fL (80-100); Red Blood Count* 4.43 m/uL (4.00-5.20); White Blood Count* 8.53 K/uL (4.50-11.00)
[2025-01-25 19:15] LABS: Slide Review Reflex No
[2025-01-25 20:21] LABS: Alanine Aminotransferase* 26 U/L (4-35); Aspartate Amino Transferase* 39 U/L (12-35); Blood Urea Nitrogen* 14 mg/dL (5-24); Creatinine* 0.7 mg/dL (0.5-1.5); Est. Creatinine Clearance* 100.55; Estimated Glomerular Filt Rate 119 ml/min
[2025-01-25 20:27] LABS: Protein Creatinine Ratio Urine 0.28 (0-0.19)
[2025-01-25] MEDS: AMOXICILLIN 250 MG CAPSULE 500 MG PO (21:25)
== END 2025-01-25 22:00 | disposition home or self-care (01) ==
PROVIDERS: Emergency Provider Family Medicine
DX: O13.5 Gestational [pregnancy-induced] hypertension without significant proteinuria, complicating the puerperium (principal); O90.89 Other complications of the puerperium, not elsewhere classified; R51.9 Headache, unspecified; F40.231 Fear of injections and transfusions; Z87.59 Personal history of other complications of pregnancy, childbirth and the puerperium
CPT/HCPCS: 36415; 82565; 82570; 84156; 84450; 84460; 84520; 85027; 96361; 96374; 99284; 99285; A9270; J1885; J7030

== ENCOUNTER 2025-01-27 09:56 | Outpatient (CLI) | payer OTHER, SELFPAY | END 2025-01-27 09:57 | disposition home or self-care (01) | PROVIDERS: Visit Provider Obstetrics & Gynecology | DX: O16.5 Unspecified maternal hypertension, complicating the puerperium (principal) | CPT/HCPCS: 82565; 84450; 84460; 84520; 84550 ==

== ENCOUNTER 2025-02-05 00:10 | Emergency (ER) | payer OTHER, SELFPAY ==
--- OUTSIDE RECORDS SUMMARY | 2025-01-11 14:00 | XMS_ITS | Encounter Summary ---
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 RONMENTAL PROTECTION SPECIALIST documented in this encounter Plan of Treatment Upcoming Encounters Date Type Department Care Team (Late st Contact Info) Description 02/12/2025 10:30 AM ENVIRONMENTAL PROTECTION SPECIALIST Telemedicine [facility] [address] [place], [place] [address] Dulce Lai PsyD, LP [address] [place] [phone] documented as of this encounter Visit Diagnoses Diagnosis MARCO A (generalized anxiety disorder) (HRC)- Primary Generalized anxiety disorder Psychological trauma history Other personal history of psychological trauma, presenting hazards to health documented in this encounter Care Teams Software Development Intern Relationship Specialty Start Date End Date Twyla Rice PA-C [address] [place] [address] PCP - General 01/23/12 documented as of this encounter
--- OUTSIDE RECORDS SUMMARY | 2025-02-05 00:12 | XMS_ITS | Clinical Summary ---
Author Organization [facility] Address [address] [place] [address] Care Team Providers Care Telephonic Case Manager Name Role Phone Twyla Rice PA-C Primary Care Provider [phone] Source Comments You are receiving this document as you are listed as the primary care provider,follow-up provider, or the patient has been referred to you for consultation.This is in compliance with the Medicare and[facility] EHR Incentive Program,which states Providers who transition their patient to another setting of careor provider of care or refers their patient to another provider of care shouldprovide summary care record for each transition of care or referral. 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 Telemedicine [facility] [address] [place] [id number] Dulce Lai PsyD, JANNETTE MARCO A (generalized anxiety disorder) (HRC) (Primary Dx); Psychological trauma history 11/26/2024 3:00 PM CDT Telemedicine [facility] [id number] [place] [id number] Dulce Lai PsyD, JANNETTE MARCO A (generalized anxiety disorder) (HRC) (Primary Dx); Psychological trauma history 11/11/2024 3:00 PM CDT Telemedicine [facility] [id number] [place] [address] [id number] Dulce Lai PsyD, LP MARCO A (generalized anxiety disorder) (HRC) (Primary Dx) from Last 3 Months Immunizations Immunization Administration Dates Next Due 4vHPV (Gardasil) 01/30/2013,05/14/2012, 2 DTaP 06/22/1998 DTaP/Hib 07/16/1994,1993 Flu Vac Preserv Free (3+yrs) 02/19/2003 HepB Adult (Engerix-B, 20+ y rs, 3 dose series) 07/16/1994,04/06/1994,1993 Influenza LAIV (Nasal, 2-49 yrs) 01/27/2008 Influenza Vaccine Q/LAIV Int ranasal 2-49 yrs ([facility]) 02/16/2015,01/16/2014,01/30/2013 MCV4 (Menactra) 08/02/2011 MMR 06/22/1998,07/16/1994 [...] 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[employer] Not on file Not on [...] st Contact Info) Description 02/12/2025 10:30 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 Telemedicine [facility] [address] [place], [place] [id number] Dulce Lai PsyD, LP [address] [facility] [address] [place] [address] Health Maintenance Due Date Last Done Comments [...] 8:44 AM CDT) Case Report Pap Case: [id number] Authorizing Provider: Twyla Rice PA-C Collected: 07/22/2018 08:44 AM Ordering Location: [facility] Received: 07/22/2018 05:55 PM First Screen: Kelly Mcdermott CT (ASCP) Specimen: Pap Test, Routine, Cervix/Endocervix 07/24/2018 10:16 AM CDT [facility] Pap Specimen Adequacy Satisfactory for evaluation, endocervical/salinas sformation zone component present. 07/24/2018 10:16 AM CDT [facility] Pap Interpretation Negative for intraepithelial lesion or malignancy (NILM). 07/24/2018 10:16 AM CDT [facility] at 1016 CDT Gross Description The specimen is received in SurePath fixative and properly labeled. 1 Pap-stained SurePath slide is prepared. 07/24/2018 10:16 AM CDT [facility] Pap Disclaimer The Pap test is a screening test designed to aid in the detection of cervical cancer and its precursor lesions. It is not a diagnostic procedure and should not be used as the sole means of detecting cervical cancer. Both false-positive and false-negative reports may occur. 07/24/2018 10:16 AM CDT [facility] Embedded Images 9 10:16 AM CDT [facility] Other Specimen Type ENTIRE ENDOCERVIX / Unknown 07/22/2018 8:44 AM CDT 07/22/2018 5:55 PM CDT Comment:LMP: Patient's last menstrual period was 07/21/2018 (exact date). us Twyla Rice PA-C LAB PATHOLOGY Final Resul t [facility] [id number] [place], [place] [address] from Last 3 Months or Most Recently Relevant to Health Maintenance Insurance [employer]ELF INSURED * Guarantor: Mesha Chambers Account Type Relation to Patient Date of Phone Billing Address Personal/Family [phone] (Work) [address] [place] [address] Care Teams Telephonic Case Manager Relationship Specialty Start Date End Date Twyla Rice, PATataC [address] [place] [address] PCP - General 01/23/12
[2025-02-05 00:17] VITALS: BP 144/72; PULSE 74; RESP 16; TEMP 36.9; O2SAT 98; BMI 39.0
[2025-02-05 00:49] LABS: Hematocrit* 40.9 % (33.0-51.0); Hemoglobin* 12.6 gm/dL (12.0-16.0); Immature Granulocytes Abs Auto 0.02 K/uL (0.00-0.30); Immature Granulocytes Pct Auto 0.2 %; Lymphocytes Absolute Auto 2.50 K/uL (0.90-2.90); Mean Corpuscular HGB Conc 31 gm/dL (32-36); Mean Corpuscular Hemoglobin 27 pg (26-34); Mean Corpuscular Volume 89 fL (80-100); RDW Coefficient of Variation % 15.7 % (11.5-15.5); Red Blood Count* 4.62 m/uL (4.00-5.20); White Blood Count* 8.97 K/uL (4.50-11.00)
[2025-02-05 00:52] LABS: Slide Review Reflex No
[2025-02-05 00:56] VITALS: BP 114/65; PULSE 80; RESP 16; O2SAT 98
--- NOTE | 2025-02-05 00:58 | ED.PREGNANCY ---
HPI - General Date Seen: 02/05/25 Chief complaint: Post OB/Post- Complication Stated complaint: 16 days post - high blood pressure Time Seen by Provider: 02/05/25 00:29 History of Present Illness HPI Narrative: Patient is a 29-year-old who is 16 days following an uncomplicated vaginal delivery. She has a history of preeclampsia with her 1st and has had some borderline blood pressures . She has been started on nifedipine 30 mg b.i.d. and subsequently taken off of it because her pressure was too low. She was just seen in the clinic yesterday with a normal blood pressure. Her labs have been essentially unremarkable with minimal elevation of her LFTs. Tonight she called the clinic because of an elevated blood pressure the 160/100 range. She is instructed to take a dose of nifedipine which she took about 2 hours ago. She acknowledges anxiety related to this blood pressure condition. She has had no abdominal pain, fever, shortness of breath, chest pain. She is breast-feeding affectively. Related Data Home Medications ?Medication ?Instructions ?Recorded ?Confirmed vits,calcium no.78-iron 1 tab PO DAILY 07/14/23 02/03/25 fumarate-folic acid 29 mg-1 mg tablet (Prenatabs FA) magnesium carb,citrate,oxide 225 mg PO DAILY 07/15/24 02/03/25 (Magnesium Complex) Previous Rx's ?Medication ?Instructions ?Recorded docusate sodium 100 mg capsule 100 mg PO DAILY #60 caps 01/21/25 nifedipine 30 mg tablet,extended 30 mg PO Q12H #40 tabs 01/27/25 release Allergies Allergy/AdvReac Type Severity Reaction Status Date / Time No Known Drug Allergies Allergy Verified 02/03/25 14:45 Review of Systems Narrative: Review of systems is outlined above otherwise noted to be negative. [facility] Medical History History of pre-eclampsia ?Z87.59 - Personal history of other complications of , childbirth and the puerperium (ICD-10) Easy bruising ?R23.3 - Spontaneous ecchymoses (ICD-10) Normal spontaneous vaginal delivery ?O80 - Encounter for full-term uncomplicated delivery (ICD-10) Acute appendicitis with rupture ?K35.32 - Acute appendicitis with perforation, localized peritonitis, and gangrene, without abscess (ICD-10) Severe preeclampsia ?O14.10 - Severe pre-eclampsia, unspecified trimester (ICD-10) IBS (irritable bowel syndrome) ?K58.9 - Irritable bowel syndrome without diarrhea (ICD-10) Surgical History Hx of appendectomy ?Z90.49 - Acquired absence of other specified parts of digestive tract (ICD-10) H/O tooth extraction ?K08.409 - Partial loss of teeth, unspecified cause, unspecified class (ICD-10) [place] teeth extracted ?K08.409 - Partial loss of teeth, unspecified cause, unspecified class (ICD-10) Family History Mother Diabetes Kidney disease ADHD PTSD (post-traumatic stress disorder) Anxiety Bipolar 1 disorder H/O gastric sleeve IBS (irritable bowel syndrome) Mammogram abnormal Abnormal Pap smear of cervix Father Asthma Brother No problems noted. 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 as [employer] tech Lives with: maci Mallory Pets: 2 dogs Abuse: Denies past/present Special Diet: Denies eats organic and limits gluten Ok with a blood transfusion: yes Culture or moravian beliefs: denies RISK FACTORS Exercise Times/wk: no, occ yoga and walking Depression/Anxiety: anxiety in past has 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, meds last in 2018, does go to therapy Seat Belt Use: Routinely Smoking: Denies past/present Alcohol/day: none currently; 2-3 on occasion prior, socially Caffeine: not currently Drug Use: Denies past/present Chicken Pox: vaccinated MRSA: Denies What is your current living situation?: I presently have a place to live Problems where you live: no known problems Problems where you live details: n/a In the past 12 months, utilities in danger of being shut off: no In past 12 months, lack of transportation kept you from medical appts, meetings, work, or getting things needed for daily living: no In the past 12 mos, have been you worried that your food would run out before you had money to buy more?: never true In the past 12 mos, the food you bought just didn't last and you didn't have money to buy more?: never true Smoking Status: Never smoker Do you use any of these nicotine containing products: None Second hand tobacco smoke exposure: No How often do you have a drink containing alcohol: monthly or less How often do you have six or more drinks on one occasion: Never AUDIT-C Alcohol total score: 1 Non-prescribed substance use: denies use Caffeine: Yes (occasionally) How often does anyone, including family, friends and others, physically hurt you: never How often does anyone, including family, friends and others, insult or talk down to you: never How often does anyone, including family, friends and others, threaten you with harm: never How often does anyone, including family, friends and others, scream or curse at you: never service: No Exam Narrative: Exam Narrative: Vitals noted. HEENT: Conjunctiva clear. Neck is supple without adenopathy, thyromegaly. Lungs: Clear to auscultation in all rojas. No wheezes, rales, rhonchi. Heart: Regular rate and rhythm without murmur. Abdomen: Soft and nontender. No guarding, rigidity, rebound. Bowel sounds are normal. No palpable masses. Extremities: No cyanosis or edema. Good distal pulses. Skin: No abnormalities noted of the exposed skin. Neurologic: Awake, alert, fully oriented. Neurologic exam is nonfocal. Const: Vital Signs, click to edit/add: Vital Signs - 24 hr 02/05/25 00:17 02/05/25 00:56 02/05/25 01:25 Temperature 98.4 F Pulse Rate [Pulse Oximeter] 74 80 76 Respiratory Rate 16 16 16 Blood Pressure [Ri ght Upper Arm] 144/72 H 114/65 115/63 Pulse Oximetry 98 98 98 Oxygen Delivery Me thod Room Air Room Air Room Air Course Course ED Course: Patient seen and examined. Her blood pressure is 114/65. Her exam is normal. We had a good discussion in certainly her risk of eclampsia is low. We will go ahead and check CBC, BMP, LFTs, UA and monitor her blood pressure. Reevaluation(s) Reevaluation #1: Labs are all reassuring. LFTs, platelets, urine are all normal. Her blood pressure is excellent. Vital Signs Vital signs: Initial Vital Signs Temperature 98.4 F 02/05/25 00:17 Temperature Source Temporal Artery Scan 02/05/25 00:17 Pulse Rate 74 02/05/25 00:17 Respiratory Rate 16 02/05/25 00:17 Blood Pressure 144/72 H 02/05/25 00:17 Blood Pressure Mean 96 02/05/25 00:17 Blood Pressure Position Sitting 02/05/25 00:17 Pulse Oximetry 98 02/05/25 00:17 Oxygen Delivery Method Room Air 02/05/25 00:17 Vital Signs Temperature 98.4 F 02/05/25 00:17 Pulse Rate 74 02/05/25 00:17 Respiratory Rate 16 02/05/25 00:17 Blood Pressure 144/72 H 02/05/25 00:17 Pulse Oximetry 98 02/05/25 00:17 Oxygen Delivery Method Room Air 02/05/25 00:17 Temperature 98.4 F 02/05/25 00:17 Pulse Rate 76 02/05/25 01:25 Respiratory Rate 16 02/05/25 01:25 Blood Pressure 115/63 02/05/25 01:25 Pulse Oximetry 98 02/05/25 01:25 Oxygen Delivery Method Room Air 02/05/25 01:25 MDM - OB/Uterine Contractions Lab Data Labs: Lab Results 02/05/25 02/05/25 Range/Units 00:40 Unknown WBC 8.97 (4.50-11.00) K/uL RBC 4.62 (4.00-5.20) m/uL Hgb 12.6 (12.0-16.0) gm/dL Hct 40.9 (33.0-51.0) % MCV 89 (80-100) fL MCH 27 (26-34) pg MCHC 31 L (32-36) gm/dL RDW Coeff of You 15.7 H (11.5-15.5) % Plt Count 370 (140-440) K/uL Neut % (Auto) 62.9 (42.0-72.0) % Lymph % (Auto) 27.9 (20-44) % [place] % (Auto) 6.6 (0.0-11.0) % Eos % (Auto) 1.8 (0.0-7.0) % Baso % (Auto) 0.6 (0.0-3.0) % Neut # (Auto) 5.65 (1.7-7.0) K/uL Lymph # (Auto) 2.50 (0.90-2.90) K/uL [place] # (Auto) 0.60 (0.00-0.90) K/UL Eos # (Auto) 0.16 (0.00-0.50) K/uL Baso # (Auto) 0.05 (0.00-0.30) K/uL Abs Immat Gran (auto) 0.02 (0.00-0.30) K/uL Imm/Tot Granulo (auto) 0.2 % Sodium 137 (135-149) mmol/L Potassium 4.1 (3.6-5.1) mmol/L Chloride 102 (96-114) mmol/L Carbon Dioxide 23 (20-32) mmol/L Anion Gap 12 (7-15) mEq/L BUN 23 (5-24) mg/dL Creatinine 0.9 (0.5-1.5) mg/dL Estimated Creat Clear 78.21 Estimated GFR 88 ml/min Glucose 108 (60-115) mg/dL Calcium 8.9 (8.4-10.6) mg/dL Total Bilirubin 0.2 (0.1-1.5) mg/dL Direct Bilirubin 0.2 (0.0-0.5) mg/dL AST 27 (12-35) U/L ALT 28 (4-35) U/L Alkaline Phosphatase 109 (40-150) U/L Total Protein 7.5 (6.0-8.3) g/dL Albumin 4.0 (3.3-5.0) g/dL Urine Color Yellow (Yellow) Urine Appearance Clear (Clear) Urine pH 6.0 (5.0-8.5) Ur Specific [place] <= 1.005 (1.000-1.030) Urine Protein Negative (Negative) Urine Glucose (UA) Negative (Negative) Urine Ketones Negative (Negative) Urine Blood Trace-intact A (Negative) Urine Nitrite Negative (Negative) Urine Bilirubin Negative (Negative) Urine Urobilinogen 0.2 (0.2-1.0) Ur Leukocyte Esterase Trace A (Negative) Urine RBC 0-2 (0-2) Urine WBC 0-2 (0-5) Ur Squamous Epith Cells Few (None-Few) Urine Bacteria Few A (None) Discharge Plan Discharge Clinical Impression: Hypertension, condition or complication Patient Disposition: Home, Self-Care Condition: Stable Additional Instructions: Continue to monitor blood pressure but discontinue nifedipine. If your blood pressure is consistently above 140/90 contact her OB provider. Return to the emergency department for worsening headache, abdominal pain, elevated blood pressures. Your evaluation tonight was very reassuring. Prescriptions: No Action Magnesium Complex 300 mg magnesium tablet 225 mg PO DAILY nifedipine 30 mg tablet extended release 30 mg PO Q12H Qty: 40 0RF docusate sodium 100 mg Capsule 100 mg PO DAILY Qty: 60 0RF Prenatabs FA 29-1 mg tablet 1 tab PO DAILY Follow Up/Referrals: Matilda Cardozo MD [Staff Physician, CHAINER] Provider,Not a Local [Primary Care Provider, Family Practice] Vania Villalta CNM [Certified Nurse Confectionery Drops Machine Operator, Certified Nurse Confectionery Drops Machine Operator] Stand Alone Forms: [employer] Info Instructions
[2025-02-05 01:01] LABS: Albumin* 4.0 g/dL (3.3-5.0); Chloride* 102 mmol/L (96-114); Potassium* 4.1 mmol/L (3.6-5.1); Sodium* 137 mmol/L (135-149)
[2025-02-05 01:04] LABS: Alanine Aminotransferase* 28 U/L (4-35); Alkaline Phosphatase* 109 U/L (40-150); Anion Gap 12 mEq/L (7-15); Aspartate Amino Transferase* 27 U/L (12-35); Bilirubin Direct* 0.2 mg/dL (0.0-0.5); Bilirubin Total* 0.2 mg/dL (0.1-1.5); Blood Urea Nitrogen* 23 mg/dL (5-24); Calcium* 8.9 mg/dL (8.4-10.6); Carbon Dioxide* 23 mmol/L (20-32); Creatinine* 0.9 mg/dL (0.5-1.5); Est. Creatinine Clearance* 78.21; Estimated Glomerular Filt Rate 88 ml/min; Glucose* 108 mg/dL (60-115); Total Protein* 7.5 g/dL (6.0-8.3)
[2025-02-05 01:05] LABS: Appearance Urine Clear (Clear)
[2025-02-05 01:25] VITALS: BP 115/63; PULSE 76; RESP 16; O2SAT 98
== END 2025-02-05 01:42 | disposition home or self-care (01) ==
PROVIDERS: Emergency Provider Family Medicine
DX: O16.5 Unspecified maternal hypertension, complicating the puerperium (principal)
CPT/HCPCS: 36415; 80048; 80076; 81001; 81003; 85025; 87086; 99282

== ENCOUNTER 2025-02-19 09:22 | Outpatient (CLI) | payer OTHER, SELFPAY ==
--- NOTE | 2025-02-19 12:23 | W.PM.LAC.MC ---
Consult Note - Mom Date of Visit Date of visit: 02/19/25 Reason for consultation: Assistance Needed and Other (f/u tongue and lip tie release, milk supply, nipple pain) Visit Code: Visit Patient's Information Phone number: [phone] Para: 2 Allergies No Known Drug Allergies Allergy (Verified 02/09/25 13:41) Mother's Medical History: Medical History (Updated 02/09/25 @ 00:00 by Background Daemon) History of pre-eclampsia ?Z87.59 - Personal history of other complications of , childbirth and the puerperium (ICD-10) Easy bruising ?R23.3 - Spontaneous ecchymoses (ICD-10) Normal spontaneous vaginal delivery ?O80 - Encounter for full-term uncomplicated delivery (ICD-10) Acute appendicitis with rupture ?K35.32 - Acute appendicitis with perforation, localized peritonitis, and gangrene, without abscess (ICD-10) Severe preeclampsia ?O14.10 - Severe pre-eclampsia, unspecified trimester (ICD-10) IBS (irritable bowel syndrome) ?K58.9 - Irritable bowel syndrome without diarrhea (ICD-10) Work Plans: return to work the end of May 2025 Delivery Information Gestational Age: 39+4 Baby's Information Baby's Age at Visit: 1m 1d Baby's Provider or Clinic: [facility] Jaundice: No Past Experience Past Experience: Yes (for 16 months) Current Frequency of Day Feedings: every 2-3 hrs Frequency of Night Feedings: 4 hr x1 stretch, then 3 hr stretches Both Breasts: No (both offered, usually just one side/feeding) Suck: strong Latch: ok, nipple slightly creased after feeding but getting better Length of Time: 8-12 min Goals: at least 1 year Pumping Pumping: Yes Quantity Pumped: can get 3 oz in 5 min if full and umcomfortable Supplementing EBM Supplement: No Formula Supplement: No Baby Elimination Number of Wet Diapers a Day: ea feeding Number of BM a Day: multiple/day- yellow in color, some seediness Breast/Nipple Condition Breast Information: Breasts are symmetrical with rounded lower quadrants, intramammary distance is less than 1.5 inches. No erythema. Nipples are supple, everted prior to feeding. Breast Shape: Round Engorgement: No Maternal Nipple Condition - Left: Common Nipple Maternal Nipple Condition - Right: Common Nipple Sore Nipples: Yes Baby Assessment Tongue/frenulum: History of frenotomy (released on 02/17/[address] Aguirre Laurier) Palate: Average Lips: Other (lip tie released on 02/17/25) Jaw Alignment: Symmetrical Mucosa: [place], moist Onsite Observation Pre-Feed weight: 4.748 kg (up 212gm in 8 days, average of 26.5gm/day) Post-Feed weight: 4.874 kg Milk Transferred (mL): 126 Position: Cross cradle Attachment/latch-on achieved: Easily Suck pattern: Suck burst and normal rest Swallow: Audible, consistent Behavior following feed: Alert, content Pre-Nursing Left Nipple: Within Normal Limits Pre-Nursing Right Nipple: Within Normal Limits Post-Nursing Right Nipple: Within Normal Limits and Blanched Assessments/Interventions Assessments/Interventions: [place] latched easily to mom's RIGHT breast; started shallow and worked his way on deeper. Nursed for 9 minutes Transferred 126 ml of milk Declined nursing on the 2nd side Mom's nipple with slight crease after unlatching and white for about 20 seconds before pinking up again. Mom is on Labetalol 100mg BID for preE; she had been on Nifedipine but didn't feel good on that medication and was switched on 02/09/25. The nipple vasospasm got worse when she started the Labetalol; this also happened with her first baby/ journey. Her BPs have been in the normal range for the last 5 days. Lilli shared her BPs with Dr. Martell on 02/16/25 and was told to stay the course for a few more weeks; before I knew this I asked Dr. Quiroz about stopping/changing medications. Shared info with mom; plan is to continue taking BPs for next 3 days and then share again with MD provider and see if she can stop at that time to decrease symptoms of Vasospasm. Other options to help with vasospasm discussed: continue to work on deeper latch for less pressure on nipple with feedings keep nipples warm; heating pad after nursing may help vitamin B6 and magnesium pectoral muscle massage and stretches Discussed continuing to offer 2nd breast with ea feeding for when he is able to take more; pump only as needed to relieve fullness to prevent oversupply (mom had with her first) Introduce bottle; options discussed to assist with latch Education provided: Supply/demand nature of milk supply, Sore nipple treatment options and Pumping for milk management Handouts Provided: Vasospasm treatment guidelines Follow-Up Suggested follow up: Appointment as needed Time Spent Time spent with patient (min): 75 Meds Home Medications and Allergies Home Medications ?Medication ?Instructions ?Recorded ?Confirmed ?Type vits,calcium no.78-iron 1 tab PO DAILY 07/14/23 02/09/25 History fumarate-folic acid 29 mg-1 mg tablet (Prenatabs FA) magnesium carb,citrate,oxide 225 mg PO DAILY 07/15/24 02/09/25 History (Magnesium Complex) docusate sodium 100 mg capsule 100 mg PO DAILY #60 caps 01/21/25 02/09/25 Rx labetalol 100 mg tablet 100 mg PO BID #40 tabs 02/09/25 02/09/25 Rx Allergies Allergy/AdvReac Type Severity Reaction Status Date / Time No Known Drug Allergies Allergy Verified 02/09/25 13:41
== END 2025-02-19 09:23 | disposition home or self-care (01) ==
LOC: OB LAC 09:22
PROVIDERS: Visit Provider Obstetrics & Gynecology
DX: Z39.1 Encounter for care and examination of lactating mother (principal)
CPT/HCPCS: G0463